=== PATIENT | male | born 1960 ===

== ENCOUNTER 2019-06-01 09:29 | Outpatient (REF) | payer BC, SELFPAY ==
[2019-06-01 19:03] LABS: ALT 32 U/L (12-78); Anion Gap 8.5 mmol/L (3-11); BUN 16 mg/dL (7-18); CO2 28.5 mmol/L (21.0-32.0); CREATININE 0.94 mg/dL (0.70-1.30); Calculated LDL 102 mg/dL; Chloride 103 mmol/L (98-107); Cholesterol 160 mg/dL (50-200); Glucose 99 mg/dL (70-100); HDL Cholesterol 51 mg/dL (40-60); Potassium 4.6 mmol/L (3.5-5.1); Sodium 140 mmol/L (136-145); Triglyceride 37 mg/dL (30-150)
[2019-06-01 19:16] LABS: Creatine Kinase 157 U/L (39-308)
== END 2019-06-01 09:49 ==
LOC: NCHCN 09:29
PROVIDERS: PCP Internal Medicine; Visit Provider Internal Medicine
DX: Z00.00 Encounter for general adult medical examination without abnormal findings (principal); Z13.228 Encounter for screening for other metabolic disorders; Z13.220 Encounter for screening for lipoid disorders
CPT/HCPCS: 80048; 80061; 82550; 83721; 84460

== ENCOUNTER 2020-09-06 09:19 | Outpatient (REF) | payer BC, SELFPAY ==
[2020-09-06 21:59] LABS: ALT 22 U/L (16-63); AST 12 U/L (15-37); Anion Gap 7.6 mmol/L (3-11); BUN 17 mg/dL (7-18); CO2 27.4 mmol/L (21.0-32.0); CREATININE 1.08 mg/dL (0.70-1.30); Calcium 9.2 mg/dL (8.5-10.1); Calculated LDL 107 mg/dL (<100); Chloride 101 mmol/L (98-107); Cholesterol 168 mg/dL (<200); Glucose 110 mg/dL (74-106); HDL Cholesterol 49 mg/dL (40-60); Potassium 4.3 mmol/L (3.5-5.1); Sodium 136 mmol/L (136-145); Triglyceride 61 mg/dL (<150)
[2020-09-06 22:56] LABS: Creatine Kinase 77 U/L (39-308)
[2020-09-07 18:53] LABS: PSA, Screening 1.1 ng/mL (0.0-4.5)
== END 2020-09-06 09:39 ==
LOC: NCHCN 09:19
PROVIDERS: PCP Internal Medicine; Visit Provider Internal Medicine
DX: E78.5 Hyperlipidemia, unspecified (principal); Z00.00 Encounter for general adult medical examination without abnormal findings; I10 Essential (primary) hypertension; N40.0 Benign prostatic hyperplasia without lower urinary tract symptoms
CPT/HCPCS: 80048; 80061; 82550; 84153; 84450; 84460

== ENCOUNTER 2020-09-13 09:56 | Outpatient (REF) | payer BC, SELFPAY ==
[2020-09-13 21:27] LABS: Hemoglobin A1C 5.2 % (<5.7)
== END 2020-09-13 10:16 ==
LOC: NCHCN 09:56
PROVIDERS: PCP Internal Medicine; Visit Provider Internal Medicine
DX: R73.9 Hyperglycemia, unspecified (principal)
CPT/HCPCS: 83036

== ENCOUNTER 2021-10-29 17:24 | Outpatient (REF) | payer OTHER, SELFPAY ==
[2021-10-29 21:08] LABS: Anion Gap 9.4 mmol/L (3-11); BUN 14 mg/dL (7-18); CO2 27.6 mmol/L (21.0-32.0); CREATININE 0.9 mg/dL (0.70-1.30); Calcium 9.7 mg/dL (8.5-10.1); Chloride 100 mmol/L (98-107); Glucose 78 mg/dL (74-106); LDL CHOLESTEROL 137 mg/dL (<100); Potassium 4.5 mmol/L (3.5-5.1); Sodium 137 mmol/L (136-145)
== END 2021-10-29 17:25 | disposition home or self-care (01) ==
LOC: NCHCN 17:24
PROVIDERS: PCP Internal Medicine; Visit Provider Internal Medicine
DX: I10 Essential (primary) hypertension (principal); E78.5 Hyperlipidemia, unspecified
CPT/HCPCS: 80048; 83721

== ENCOUNTER 2022-01-08 17:11 | Outpatient (REF) | payer OTHER, SELFPAY ==
[2022-01-08 18:26] LABS: HCT 45.2 % (40.0-50.0); HGB 14.7 g/dL (13.5-17.5); MCH 31.3 pg (27.0-33.0); MCHC 32.5 % (32.0-36.0); MCV 96.2 fL (80-95); MPV 10.7 fL (8.0-11.0); Platelet Count 231 10^3/uL (130-400); RDW-SD 43.1 fL; WBC 11.15 10^3/uL (4.4-10.8)
== END 2022-01-08 17:12 | disposition home or self-care (01) ==
LOC: NCHCN 17:11
PROVIDERS: PCP Internal Medicine; Visit Provider Internal Medicine
DX: I10 Essential (primary) hypertension (principal)
CPT/HCPCS: 85027

== ENCOUNTER 2023-04-09 17:27 | Outpatient (REF) | payer OTHER, SELFPAY ==
[2023-04-09 20:07] LABS: Anion Gap 6.7 mmol/L (3-11); BUN 28 mg/dL (7-18); CO2 27.3 mmol/L (21.0-32.0); Calcium 9.4 mg/dL (8.5-10.1); Calculated LDL 149 mg/dL (<100); Chloride 100 mmol/L (98-107); Cholesterol 220 mg/dL (<200); Estimated GFR 84.57 (mL/min/1.73m2); Glucose 91 mg/dL (74-106); HDL Cholesterol 56 mg/dL (40-60); Potassium 3.9 mmol/L (3.5-5.1); Sodium 134 mmol/L (136-145); Triglyceride 76 mg/dL (<150)
== END 2023-04-09 17:28 | disposition home or self-care (01) ==
LOC: NCHCN 17:27
PROVIDERS: PCP Internal Medicine; Visit Provider Internal Medicine
DX: Z00.00 Encounter for general adult medical examination without abnormal findings (principal); E78.5 Hyperlipidemia, unspecified; I10 Essential (primary) hypertension
CPT/HCPCS: 80048; 80061

== ENCOUNTER 2024-05-04 16:09 | Outpatient (REF) | payer SELFPAY ==
--- OUTSIDE RECORDS SUMMARY | 2024-05-04 16:11 | XMS_ITS | Continuity of Care Document ---
Author Name Unknown Organization [facility] Address [address] [place] [address] Care Team Providers Care Business Machines Teacher Name Role Phone Wilfrid Perrin Primary Care Physician Encounter [facility] Date(s): 11/07/22 - 11/07/[address] [phone] Discharge Disposition: Home or Self Care Attending Physician: Basil Fuentes MD Admitting Physician: Basil Fuentes MD Referring Physician: Basil Fuentes MD Allergies, Adverse Reactions, Alerts No Known Medication Allergies Assessment and Plan Diagnostic Tests Pending * SARS (COVID-19) Testing [facility] 11/07/22 Problem List Condition Confirmation Course Effective Dates Status H ealth Status Informant Benign prostatic hyperplasia Confirmed 01/26/20 Active Hyperlipidemia Confirmed 01/26/20 Active Hypertensive disorder Confirmed 01/26/20 Active Joint pain Confirmed 01/26/20 Active Osteoarthritis of knee Confirmed 01/26/20 Active Periumbilical pain Confirmed 01/26/20 Active Prediabetes Confirmed 01/26/20 Active Rupture of tendon of biceps Confirmed 01/26/20 Active Spontaneous rupture of extensor tendons Confirmed Active Venous insufficiency of leg Confirmed 01/26/20 Active Procedures Procedure Date Related Diagnosis Body Site Status Colonoscopy 1 02/14/21 Completed 1diverticulosis, colon polyps, internal hemorrhoids. 2009 Social History Social History Type Response Sex Male Patient Care team information Personnel Name: Wilfrid Perrin MD Address: Address: [address] [address]- [place]
--- OUTSIDE RECORDS SUMMARY | 2024-05-04 16:11 | XMS_ITS | Continuity of Care Document ---
Author Name Unknown Organization [facility] Address [address] [place] [address] Care Team Providers Care Manager Stone Name Role Phone Cisco CLARKWilfrid Primary Care Physician Encounter [facility] Date(s): 08/18/23 - 08/18/[address] [phone] Discharge Disposition: Home or Self Care Attending Physician: Martell Camargo PA-C Admitting Physician: Martell Camargo PA-C Referring Physician: Martell Camargo PA-C Allergies, Adverse Reactions, Alerts No Known Medication Allergies Problem List Condition Confirmation Course Effective Dates [...] Completed 1diverticulosis, colon polyps, internal hemorrhoids. 2009 Results Laboratory List Name Date Creatinine 08/18/23 Most recent to oldest [Reference Range]: 1 eGFR Non-AA [>=60] 84 (08/18/23 4:20 PM) eGFR AA [>=60] 84 (08/18/23 4:20 PM) Creatinine Level [0.70-1.30 mg/dL] 1.01 mg/dL (08/18/23 4:20 PM) Social History Social History Type Response Sex Male Patient Care team information Care Team Personnel Name: Wilfrid Perrin MD Position: Physician Member Role: Informed Provider Address: Address: [address] [place] [phone] Care Team Related Persons Name: ADRIAN TAVARES
[2024-05-04 19:58] LABS: Anion Gap 4.9 mmol/L (3-11); BUN 14 mg/dL (7-18); CO2 30.1 mmol/L (21.0-32.0); Calcium 9.7 mg/dL (8.5-10.1); Chloride 104 mmol/L (98-107); Creatine Kinase 120 U/L (39-308); Estimated GFR 84.05 (mL/min/1.73m2); Glucose 110 mg/dL (74-106); Potassium 4.6 mmol/L (3.5-5.1); Sodium 139 mmol/L (136-145)
[2024-05-04 20:22] LABS: Calculated LDL 86 mg/dL (<100); Cholesterol 152 mg/dL (<200); HDL Cholesterol 58 mg/dL (40-60); Triglyceride 41 mg/dL (<150)
== END 2024-05-04 16:10 | disposition home or self-care (01) ==
LOC: NCHCN 16:09
PROVIDERS: PCP Internal Medicine; Visit Provider Internal Medicine
DX: E78.5 Hyperlipidemia, unspecified (principal); I10 Essential (primary) hypertension
CPT/HCPCS: 80048; 80061; 82550

== ENCOUNTER 2024-08-16 18:18 | Outpatient (REF) | payer OTHER, SELFPAY ==
--- OUTSIDE RECORDS SUMMARY | 2024-08-16 18:21 | XMS_ITS | Encounter Summary ---
Author Organization [facility] Address [address] [place] [address] Care Team Providers Care Senior Mechanical Estimator Name Role Phone Unknown, Provider Primary Care Provider [phone] Encounter Details Date Type Department Care Team (Late st Contact Info) Description 02/01/2022 Lab Requisition [facility] Pathology & Laboratory Medicine - [facility] [address] [place] [address] Basil Fuentes MD [address] [place] [phone] Disorder of the skin and subcutaneous tissue, unspecified Social History Tobacco Use Types Packs/Day Years Used Date Smoking Tobacco: Never Assessed Sex and Gender Information Value Date Recorded Sex Assigned at Not on file Gender Identity Not on file Sexual Orientation Not on file documented as of this encounter Plan of Treatment Not on file documented as of this encounter Procedures Procedure Name Priority Date/Time Associated Diagnosis Comments SURGICAL PATHOLOGY Today 02/01/2022 16 :55 EDT documented in this encounter Results * SURGICAL PATHOLOGY (02/01/2022 16:55 EDT) Note to Patient The following pathology results have been interpreted by your pathologist and may be available to you before your health provider has had the opportunity to review them. Please allow time for your provider to receive these results and explore management options, if applicable. 02/06/2022 18:[address] [facility] Final Diagnosis A. SKIN OF SCALP, EXCISION: - Actinic keratosis, ulcerated and inflamed. See comment. 02/06/2022 18:[address] [facility] Diagnosis Comment Within the excision specimen is dermal scar formation. The epidermis is largely eroded and ulcerated suggestive of excoriation. However, also present are features of actinic keratosis. Deeper levels have been examined on blocks A1 and A2. 02/06/2022 18:10 [facility] Attestation By the signature below, the attending physician certifies that they have 1) personally conducted a gross and/or microscopic examination of the described specimen(s), and/or personally interpreted the results of laboratory testing of the described specimen(s), and 2) personally rendered or confirmed the above diagnosis. 02/06/2022 18:10 [facility] at 1810 Clinical History Scalp skin lesion; clinical diagnosis code: L98.9 02/06/2022 18:10 [facility] Gross Description A. Received in formalin labelled with proper patient identification (initials S, M) and not otherwise specified is a 0.9 x 0.4 x 0.2 cm unoriented, elliptical excision of hair-bearing valente skin. The margin is inked. The specimen is serially sectioned and entirely submitted in A1 (tips, reverse en face) and A2 (2 central sections). SAE URIAS(ASCP) 02/04/2022 12:00 02/06/2022 18:10 [facility] Performing Lab [facility] 02/06/2022 18:10 [facility] Scanned Images 02/06/2022 18:10 [facility] Tissue TISSUE SPECIMEN FROM SKIN / Unknown 02/01/2022 16:55 EDT 02/01/2022 22:12 EDT Basil Fuentes MD PATHOLOGY TAMIKO VALLEJO [facility] [address] [place] [address] documented in this encounter Visit Diagnoses Diagnosis Disorder of the skin and subcutaneous tissue, unspecified documented in this encounter Care Teams Senior Mechanical Estimator Relationship Specialty Start Date End Date Unknown, Provider, PCP - General 02/15/21 documented as of this encounter
--- OUTSIDE RECORDS SUMMARY | 2024-08-16 18:21 | XMS_ITS | Clinical Summary ---
Author Organization [facility] Address [address] [place] [address] Care Team Providers Care Well Services Operator Name Role Phone Unknown, Provider Primary Care Provider Social History Tobacco Use Types Packs/Day Years Used Date Smoking Tobacco: Never Assessed Sex and Gender Information Value Date Recorded Sex Assigned at Not on file Gender Identity Not on file Sexual Orientation Not on file Plan of Treatment Health Maintenance Due Date Last Done Comments Hepatitis C Screen 1960 RSV Immunization ( o r 60+ Years) (1 - 1-dose 60+ series) 2019 COVID-19 Vaccine (2022-24 season) 2023 Care Teams Well Services Operator Relationship Specialty Start Date End Date Unknown, Provider, PCP - General 02/15/21
--- OUTSIDE RECORDS SUMMARY | 2024-08-16 18:21 | XMS_ITS | Referral Summary ---
Author Organization [facility] Address [address] [place] [address] Care Team Providers Care Hotbed Operator Name Role Phone Unknown, Provider Primary Care Provider Social History Tobacco Use Types Packs/Day Years Used Date Smoking Tobacco: Never Assessed Sex and Gender Information Value Date Recorded Sex Assigned at Not on file Gender Identity Not on file Sexual Orientation Not on file Plan of Treatment Not on file Care Teams Hotbed Operator Relationship Specialty Start Date End Date Unknown, Provider, PCP - General 02/15/21
--- OUTSIDE RECORDS SUMMARY | 2024-08-16 18:21 | XMS_ITS | Encounter Summary ---
Author Organization [facility] Address [address] [place] [address] Care Team Providers Care Release Of Information Specialist Name Role Phone Unknown, Provider Primary Care Provider Encounter Details Date Type Department Care Team (Late st Contact Info) Description 09/07/2020 Lab Requisition [facility] Pathology & Laboratory Medicine - [facility] [address] [place], [place] [id number] Outr Resulting Lab, Provider Social History Tobacco Use Types Packs/Day Years Used Date Smoking Tobacco: Never Assessed Sex and Gender Information Value Date Recorded Sex Assigned at Not on file Gender Identity Not on file Sexual Orientation Not on file documented as of this encounter Plan of Treatment Not on file documented as of this encounter Procedures Procedure Name Priority Date/Time Associated Diagnosis Comments PSA TOTAL, DIAGNOSTIC Routine 09/06/2020 8:40 EDT documented in this encounter Results * PSA TOTAL, DIAGNOSTIC (09/06/2020 8:40 EDT) PSA 1.1 0.0 - 4.5 ng/mL 09/07/2020 18:48 EDT [facility] Blood VENOUS BLOOD / Unknown 09/06/2020 8:40 EDT 09/07/2020 17:21 EDT Narrative [facility] - 09/07/2020 18:48 EDT NOTE: Serum PSA concentration should not be interpreted as absolute evidence for the presence or absence of malignant disease. Assayed on Siemens ADVIA Centaur XPT using chemiluminescent technology.??Values obtained by using different assay methods cannot be used interchangeably. Provider Outr Resulting Lab CHEMISTRY & BLOOD GAS ORDERABLES [facility] [address] [place] [address] documented in this encounter Visit Diagnoses Not on filedocumented in this encounter Care Teams Release Of Information Specialist Relationship Specialty Start Date End Date Unknown, Provider, PCP - General 02/15/21 documented as of this encounter
--- OUTSIDE RECORDS SUMMARY | 2024-08-16 18:21 | XMS_ITS | Encounter Summary ---
Author Organization [facility] Address [address] [place] [address] Care Team Providers Care Automation Design Engineer Name Role Phone Unknown, Provider Primary Care Provider Encounter Details Date Type Department Care Team (Late st Contact Info) Description 11/07/2022 Lab Requisition [facility] Pathology & Laboratory Medicine - [facility] [address] [place] [address] Outr Resulting Lab, Provider Social History Tobacco [...] Procedure Name Priority Date/Time Associated Diagnosis Comments ZZCOVID-19 TEST [facility] PCR Today 11/07/2022 10:17 EST COVID-19 TESTING Routine 11/07/2022 10:1 7 EST documented in this encounter Results * COVID-19 TEST [facility] PCR (11/07/2022 10:17 EST) Swab 11/07/2022 10:1 7 EST 11/07/2022 21:19 EST Provider Outr Resulting Lab MICROBIOLOGY - GENERAL ORDERABLES [facility] [address] [place] [address] * COVID-19 TESTING (11/07/2022 10:17 EST) COVID-19 rt-PCR Result Negative Negative 11/08/2022 11:12 EST [facility] Comment: This test has not been FDA cleared or approved. This test has been authorized by FDA under an EUA for use by authorized laboratories. This test has been authorized only for detection of nucleic acid from 2019-nCoV, not for any other viruses or pathogens. This test is only authorized for the duration of the declaration that circumstances exist justifying the authorization of emergency use of in vitro diagnostic tests for detection and/or diagnosis of 2019-nCoV under section 564(b)(1) of Act, 21 U.S.C ?? 360bbb-3(b) (1), unless the authorization is terminated or revoked sooner. Negative results do not preclude 2019-nCoV infection and should not be used as the sole basis for treatment or other patient management decisions. Negative results must be combined with clinical observations, patient history, and epidemiological information. Testing was performed using the tammy SARS-CoV-2 assay ([employer] on the Tammy 6800 System Performing Lab Tammy 6800 [facility] 11/08/2022 11:12 EST [facility] Swab 11/07/2022 10:1 7 EST 11/07/2022 21:19 EST Provider Outr Resulting Lab MICROBIOLOGY - GENERAL ORDERABLES [facility] [address] [place] [address] documented in this encounter Visit Diagnoses Not on filedocumented in this encounter Care Teams Automation Design Engineer Relationship Specialty Start Date End Date Unknown, Provider, PCP - General 02/15/21 documented as of this encounter
--- OUTSIDE RECORDS SUMMARY | 2024-08-16 18:21 | XMS_ITS | Encounter Summary ---
Author Organization [facility] Address [address] [place] [address] Care Team Providers Care Video Game Script Writer Name Role Phone Unknown, Provider Primary Care Provider Encounter Details Date Type Department Care Team (Late st Contact Info) Description 02/15/2021 Lab Requisition [facility] Pathology & Laboratory Medicine - [facility] [address] [place] [address] Basil Fuentes MD [address] [place] [phone] Encounter for other general examination Social History Tobacco Use Types Packs/Day Years Used Date Smoking Tobacco: Never Assessed Sex and Gender Information Value Date Recorded Sex Assigned at Not on file Gender Identity Not on file Sexual Orientation Not on file documented as of this encounter Plan of Treatment Not on file documented as of this encounter Procedures Procedure Name Priority Date/Time Associated Diagnosis Comments SURGICAL PATHOLOGY Today 02/15/2021 11 :15 EDT documented in this encounter Results * SURGICAL PATHOLOGY (02/15/2021 11:15 EDT) Final Diagnosis A. COLON, TRANSVERSE, POLYP, BIOPSY: - Tubular adenoma. B. COLON, TRANSVERSE, POLYP #2, BIOPSY: - Sessile serrated adenoma. C. COLON, SIGMOID, POLYP, BIOPSY: - Tubular adenoma. D. COLON, SIGMOID, POLYP #2, BIOPSY: - Cauterized colonic mucosa with hyperplastic surface change. - Negative for dysplasia. 02/19/2021 16:46 EDT [facility] Attestation By the signature below, the attending physician certifies that they have 1) personally conducted a gross and/or microscopic examination of the described specimen(s), and/or personally interpreted the results of laboratory testing of the described specimen(s), and 2) personally rendered or confirmed the above diagnosis. 02/19/2021 16:46 [facility] at 1646 Clinical History Screening; diverticulosis, colon polyp 02/19/2021 16:46 [facility] Gross Description A. Received in formalin labelled with proper patient identification (initials S, M) and transverse colon polyp is a valente tissue (0.5 x 0.3 x 0.2 cm). Submitted intact in A1. B. Received in formalin labelled with proper patient identification (initials S, M) and transverse colon polyp # 2 is a pale-valente to pink-red polyp (0.8 x 0.6 x 0.4 cm). Bisected and submitted in B1. C. Received in formalin labelled with proper patient identification (initials S, M) and sigmoid colon polyp is a valente-pink focally red speckled polyp (0.6 x 0.3 x 0.3 cm). Submitted intact in C1. D. Received in formalin labelled with proper patient identification (initials S, M) and sigmoid colon polyp x2 are two white brown tissues (0.5 x 0.2 x 0.2 cm and 0.2 x 0.2 x 0.1 cm). Entirely submitted in D1. Graham Yuen 02/16/2021 8:55 02/19/2021 16:46 [facility] Performing Lab [facility] 02/19/2021 16:46 [facility] Scanned Images 02/19/2021 16:46 [facility] Tissue ENTIRE SIGMOID COLON / Unknown 02/15/2021 11:15 EDT 02/16/2021 7:31 EDT Tissue specimen (specimen) TRANSVERSE COLON STRUCTURE / Unknown 02/15/2021 11:15 EDT 02/16/2021 7:31 EDT Tissue specimen (specimen) SIGMOID COLON STRUCTURE / Unknown 02/15/2021 11:15 EDT 02/16/2021 7:31 EDT Tissue specimen (specimen) SIGMOID COLON STRUCTURE / Unknown 02/15/2021 11:15 EDT 02/16/2021 7:31 EDT Basil Fuentes MD PATHOLOGY TAMIKO VALLEJO [facility] [address] [place] [address] documented in this encounter Visit Diagnoses Diagnosis Encounter for other general examination documented in this encounter Care Teams Video Game Script Writer Relationship Specialty Start Date End Date Unknown, Provider, PCP - General 02/15/21 documented as of this encounter
--- OUTSIDE RECORDS SUMMARY | 2024-08-16 18:21 | XMS_ITS | Encounter Summary ---
Author Organization [facility] Address [address] [place] [address] Care Team Providers Care Early Childhood Specialist Name Role Phone Unknown, Provider Primary Care Provider Encounter Details Date Type Department Care Team (Late st Contact Info) Description 02/08/2021 Lab Requisition [facility] Pathology & Laboratory Medicine - [address] [address] Outr Resulting Lab, Provider Social History Tobacco [...] Priority Date/Time Associated Diagnosis Comments ZZCOVID-19 TEST [facility] PCR Today 02/08/2021 8:33 EDT COVID-19 TESTING Routine 02/08/2021 8:33 EDT documented in this encounter Results * COVID-19 TEST [facility] PCR (02/08/2021 8:33 EDT) Swab ENTIRE NASOPHARYNX / Unknown 02/08/2021 8:33 EDT 02/08/2021 16:52 EDT Provider Outr Resulting Lab MICROBIOLOGY - GENERAL ORDERABLES [facility] [address] [place] [address] * COVID-19 TESTING (02/08/2021 8:33 EDT) COVID-19 rt-PCR Result Negative Negative 02/09/2021 12:31 EDT [facility] Comment: This test [...] clinical observations, patient history, and epidemiological information. This test was developed and its performance characteristics determined by [facility]. It has not been cleared or approved by the [place] Food and Drug Administration. FDA does not require this test to go through premarket FDA review. This test is used for clinical purposes. It should not be regarded as investigational or for research. This laboratory is certified under the Clinical Laboratory Improvement Amendments (CLIA) as qualified to perform high complexity clinical laboratory testing. This test is based on the CDC COVID-19 Emergency Use Authorization (EUA) assay, with minor modification as defined by the FDA Performed on the [employer] 7 Pro RT-PCR System. Performing Lab [facility] 02/09/2021 12:31 EDT [facility] Swab 02/08/2021 8:33 EDT 02/08/2021 16:52 EDT Provider Outr Resulting Lab MICROBIOLOGY - GENERAL ORDERABLES [facility] [address] [place] [address] documented in this encounter Visit Diagnoses Not on filedocumented in this encounter Care Teams Early Childhood Specialist Relationship Specialty Start Date End Date Unknown, Provider, PCP - General 02/15/21 documented as of this encounter
--- OUTSIDE RECORDS SUMMARY | 2024-08-16 18:22 | XMS_ITS | Encounter Summary ---
Author Organization [facility] [place] [address] Care Team Providers Care Dipper And Baker Name Role Phone Wilfrid Peck MD Primary Care Provider Reason for Referral * Diagnostic Test (Routine) - Closed Specialty Diagnoses / Procedures Referred By Contac t Referred To Contact Radiology Diagnoses Squamous cell carcinoma of tongue Procedures CT Chest w Contrast PRG CT SCAN THORAX CONTRAST Elo Mcclellan APRN [facility] [place] [address] [facility] [place] [address] Referral ID Status Reason Start Date Expiration Date V isits Requested Visits Authorized [id number] Closed Specialty Service Requested 08/29/2022 02/28/2024 1 1 * Diagnostic Test (Routine) - Closed Specialty Diagnoses / Procedures Referred By Contac t Referred To Contact Radiology Diagnoses Squamous cell carcinoma of tongue Procedures CT Neck Soft Tissue w Contrast (Generic) PRG CT SCAN SOFT TISSUE NECK CONTRAST Elo Mcclellan APRN [facility] [place] [address] [facility] [place] [address] Referral ID Status Reason Start Date Expiration Date V isits Requested Visits Authorized [id number] Closed Specialty Service Requested 08/29/2022 02/28/2024 1 1 Reason for Visit * Diagnostic Test (Routine) - Closed Specialty Diagnoses / Procedures Referred By Genevieve t Referred To Contact Radiology Diagnoses Squamous cell carcinoma of tongue Procedures CT Neck Soft Tissue w Contrast (Generic) PRG CT SCAN SOFT TISSUE NECK CONTRAST Elo Mcclellan APRN [facility] DR MAGDALENOOLARY[place] [address] [facility] [place] [address] Referral ID Status Reason Start Date Expiration Date V isits Requested Visits Authorized [id number] Closed Specialty Service Requested 08/29/2022 02/28/2024 1 1 Encounter Details Date Type Department Care Team (Latest Contact Info) Description 10/24/2022 7:59 AM EST - 10/24/2022 11:59 PM EST Hospital [place] [address] Elo Mcclellan APRN [facility] DR [place] [address] Squamous cell carcinoma of tongue Discharge Disposition: Home Social History Tobacco Use Types Packs/Day Years Used Date Smoking Tobacco: Never Smokeless Tobacco: Never Alcohol Use Standard Drinks/Week Comments Yes 7 (1 standard drink = 0.6 oz pur e alcohol) Overall Financial Resource Strain (CARDIA) Answe r Date Recorded How hard is it for you to pa y for the very basics like food, housing, medical care, and heating? Not very hard 05/29/2022 Hunger Vital Sign Answer Date Recorded Within the past 12 months, y ou worried that your food would run out before you got the money to buy more. Never true 05/29/20 22 Ran Out of Food in the Last Year Not on file 05/29/2022 PRAPARE - Transportation Answer Date Re corded In the past 12 months, has l ack of transportation kept you from medical appointments or from getting medications? No 05/17 In the past 12 months, has l ack of transportation kept you from meetings, work, or from getting things needed for daily living? No 05/29/2022 Housing Stability Vital Sign Answer Tito e Recorded In the last 12 months, was t here a time when you were not able to pay the mortgage or rent on time? No 05/29/2022 In the last 12 months, how many places have you lived? 1 05/29/2022 In the last 12 months, was t here a time when you did not have a steady place to sleep or slept in a usp (including now)? No 05/29/2022 Sex and Gender Information Value Date Recorded Sex Assigned at Not on file Gender Identity Not on file Sexual Orientation Not on file documented as of this encounter Medications at Time of Discharge Medication Sig Dispensed Refills Start Date End Date ascorbic acid (VITAMIN C ORAL) Take by mouth daily. ergocalciferol, vitamin D2, (VITAMIN D ORAL) Take by mouth daily. KRILL OIL ORAL Take by mouth daily. acetaminophen (Tylenol) 325 mg Tablet Take 3 tablets by mouth every 6 hours. 30 tablet 1 07/24/2022 ibuprofen (Advil) 600 mg Tablet Take 1 tablet by mouth every 6 hours. 30 tablet 12 07/24/2022 lisinopriL (Zestril) 10 mg Tablet Take 1 tablet by mouth daily. 90 tablet 3 07/25/2022 chlorhexidine (Peridex) 0.12 % Mouthwash Take 15 mLs by mouth 3 times daily. 120 mL 07/24/2022 documented as of this encounter Plan of Treatment Not on file documented as of this encounter Procedures Procedure Name Priority Date/Time Associated Diagnosis Comments CT CHEST W CONTRAST Routine 10/24/2022 8 :40 AM EST Squamous cell carcinoma of tongue CT NECK SOFT TISSUE W CONTRAST Routine 10/24/2022 8:40 AM EST Squamous cell carcinoma of tongue documented in this encounter Results * CT Chest w Contrast (10/24/2022 8:40 AM EST) Anatomical Region Laterality Modality Chest Computed Tomogra phy Impressions 10/24/2022 11:16 AM EST 1. ??No pulmonary metastases. No lymphadenopathy. 2. ??See separately dictated CT neck for dedicated neck findings. 3. ??Approximately 6 cm hypodense lesion in the right liver lobe with peripheral lacunar enhancement is consistent with a benign hemangioma. This was also already present at the time of prior PET/CT 05/16/2022. Lack of any abnormal FDG uptake at that time also makes a malignant etiology much less likely. I have personally reviewed the image(s) and the resident's interpretation and agree with the findings, Sarai Weeks MD at 10/24/2022 11:16 AM Thank you for letting us participate in the care of this patient. ??If you are a health care provider and have any questions regarding this report, please contact the number below. ??For patients who have questions please contact the health careers counsellor that requested your imaging first. ? Electronically signed by: Sarai Weeks MD, [facility] ([phone]), at 10/24/2022 11:16 AM Narrative 10/24/2022 11:16 AM EST EXAMINATION: CT CHEST W CONTRAST CLINICAL HISTORY: Head/neck cancer, staging Known squamous cell carcinoma of the tongue HPV+ T1N1 TECHNIQUE: Helical CT of the chest with intravenous contrast administration. 110 cc Omnipaque 350. Thin-section reconstructions as well as coronal and sagittal reformatted images were generated. COMPARISON: PET CT 05/16/2022 FINDINGS: Pulmonary parenchyma: Mild dependent atelectasis. Stable sub-6 mm anterior right middle lobe subpleural ovoid soft tissue nodule, likely intrapulmonary lymph node (series 4 image 290). Airways: Central airways are patent. Pleura: No pleural effusions. No pneumothorax. Lymph nodes: No mediastinal or axillary lymphadenopathy. Heart and vasculature: Normal cardiac size. Mild coronary artery calcifications. Mild aortic atherosclerosis. Normal course and caliber of the aorta. Patent branch vessel origins. No pericardial effusion. Other mediastinal structures: Mediastinal fat is preserved. Normal CT appearance of the esophagus. Lower neck: See separately dictated CT neck for dedicated neck findings. Body wall soft tissues: No significant findings. Upper abdomen: 6.1 x 6.0 x 4.7 cm right hepatic lobe peripheral segment 5/6 irregular lesion which is predominantly mildly hypodense to normal liver parenchyma, with multiple enhancing peripheral nodular foci. There is a central focus of fluid density, (series 3 image 111). On review of prior PET/CT this correlates with a heterogeneous hypodense focus. Of note the FDG avidity was relatively similar to adjacent liver parenchyma. Skeletal structures: No acute osseous findings. No suspicious lytic or blastic osseous lesions. 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 110 cc Omnipaque 350. Thin-section reconstructions as well as coronal andsagittal reformatted images were generated. COMPARISON: PET CT 05/16/2022 FINDINGS: Pulmonary parenchyma: Mild dependent atelectasis. Stable sub-6 mm anterior right middle lobe subpleural ovoid soft tissuenodule, likely intrapulmonary lymph node (series 4 image 290). Airways: Central airways are patent. Pleura: No pleural effusions. No pneumothorax. Lymph nodes: No mediastinal or axillary lymphadenopathy. Heart and vasculature: Normal cardiac size. Mild coronary arterycalcifications. Mild aortic atherosclerosis. Normal course and caliber of the aorta.Patent branch vessel origins. No pericardial effusion. Other mediastinal structures: Mediastinal fat is preserved. Normal CTappearance of the esophagus. Lower neck: See separately dictated CT neck for dedicated neck findings. Body wall soft tissues: No significant findings. Upper abdomen: 6.1 x 6.0 x 4.7 cm right hepatic lobe peripheral segment5/6 irregular lesion which is predominantly mildly hypodense to normal liver parenchyma, with multiple enhancing peripheral nodular foci. There is acentral focus of fluid density, (series 3 image 111). On review of prior PET/CT this correlates with a heterogeneous hypodensefocus. Of note the FDG avidity was relatively similar to adjacent liverparenchyma. Skeletal structures: No acute osseous findings. No suspicious lytic orblastic osseous lesions. IMPRESSION 1. No pulmonary metastases. No lymphadenopathy. 2. See separately dictated CT neck for dedicated neck findings. 3. Approximately 6 cm hypodense lesion in the right liver lobe withperipheral lacunar enhancement is consistent with a benign hemangioma. This wasalso already present at the time of prior PET/CT 05/16/2022. Lack of anyabnormal FDG uptake at that time also makes a malignant etiology much less likely. I have personally reviewed the image(s) and the resident's interpretationand agree with the findings, Sarai Weeks MD at 10/24/2022 11:16AM Thank you for letting us participate in the care of this patient. If youare a health care provider and have any questions regarding this report,please contact the number below. For patients who have questions please contactthe health careers counsellor that requested your imaging first. Elo Mcclellan APRN IM CT ORDERABLES * CT Neck Soft Tissue w Contrast (Generic) (10/24/2022 8:40 AM EST) Anatomical Region Laterality Modality Neck, Head Computed Tomogra phy Impressions 10/24/2022 10:47 AM EST 1. ??No evidence of local tumor recurrence. 2. ??No cervical lymphadenopathy. 3. ??No evidence of regional distant metastases. 4. ??Incidental 8 mm left thyroid nodule which does not require further workup per ACR criteria. The majority of incidental thyroid nodules (ITNs) are benign. To avoid unnecessary evaluation the [employer] recommends the following for ITNs discovered on CTor MRI: In patients less than 35 years of age with normal life expectancy, any ITN without suspicious features, 1cm or larger should undergo dedicated thyroid sonography. In patients greater than 35 years of age with normal life expectancy, any ITN without suspicious features, 1.5 cm or larger should undergo dedicated thyroid sonography. Reference: Jerry SIBLEY, et al. Managing Incidental Thyroid Nodules Detected on Imaging: White Paper of the ACR Incidental Thyroid Findings Committee. J Am Marc Radiol 2015;12:143-150. Thank you for letting us participate in the care of this patient. ??If you are a health care provider and have any questions regarding this report, please contact the number below. ??For patients who have questions please contact the health careers counsellor that requested your imaging first. ? 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 110 cc of Omnipaque 350 were injected intravenously for contrast. COMPARISON: CT neck 02/28/2022 and PET/CT scan 05/16/2020 FINDINGS: There is tissue volume loss at the right tongue base related to prior resection. No mass or abnormal enhancement to suggest recurrent tumor. Incidental 8 mm left thyroid lobe hypodense nodule. No additional mass lesion throughout the neck. Surgical clips are seen in the right neck from prior right neck dissection. No cervical lymphadenopathy bilaterally throughout the neck. The visualized portions of the lungs show no pulmonary nodules. The visualized portions of the brain show no abnormal enhancement. No focal osseous lesions to suggest metastatic disease. Procedure Note Carly Joseph MD - 10/24/2022 EXAMINATION: CT NECK SOFT TISSUE W CONTRAST (GENERIC) CLINICAL HISTORY: Head/neck cancer, staging Right base of tongue cancer pT1N1 HPV+ squamous cell carcinoma rightlateral tongue s/p excision performed on 08/08/2022 TECHNIQUE: CT neck performed after the intravenous administration of contrast. 110 ccof Omnipaque 350 were injected intravenously for contrast. COMPARISON: CT neck 02/28/2022 and PET/CT scan 05/16/2020 FINDINGS: There is tissue volume loss at the right tongue base related to priorresection. No mass or abnormal enhancement to suggest recurrent tumor. Incidental 8 mm left thyroid lobe hypodense nodule. No additional masslesion throughout the neck. Surgical clips are seen in the right neck from prior right neckdissection. No cervical lymphadenopathy bilaterally throughout the neck. The visualized portions of the lungs show no pulmonary nodules. Thevisualized portions of the brain show no abnormal enhancement. No focal osseouslesions to suggest metastatic disease. IMPRESSION 1. No evidence of local tumor recurrence. 2. No cervical lymphadenopathy. 3. No evidence of regional distant metastases. 4. Incidental 8 mm left thyroid nodule which does not require furtherworkup per ACR criteria. The majority of incidental thyroid nodules (ITNs) are benign. To avoid unnecessary evaluation the [employer]recommends the following for ITNs discovered on CTor MRI: In patients less than 35 years of age with normal life expectancy, anyITN without suspicious features, 1cm or larger should undergo dedicatedthyroid sonography. In patients greater than 35 years of age with normal life expectancy, anyITN without suspicious features, 1.5 cm or larger should undergo dedicatedthyroid sonography. Reference: Jerry MonkK, et al. Managing Incidental Thyroid Nodules Detected on Imaging:White Paper of the ACR Incidental Thyroid Findings Committee. J Am Marc Radiol 2015;12:143-150. Thank you for letting us participate in the care of this patient. If youare a health care provider and have any questions regarding this report,please contact the number below. For patients who have questions please contactthe health careers counsellor that requested your imaging first. Electronically signed by: Carly Joseph MD, [facility]([phone]), at 10/24/2022 10:47 AM Elo Mcclellan APRN IMRenzo CT ORDERABLES documented in this encounter Visit Diagnoses Diagnosis Squamous cell carcinoma of tongue Malignant neoplasm of tongue, unspecified site documented in this encounter Administered Medications Inactive Administered Medications - up to 3 most recent administrations Medication Order MAR Action Action Date Dose Rate Site iohexoL (Omnipaque) (350 mg/mL) solution 0-200 mL 0-200 mL, Intravenous, ONCE PRN, 1 dose, Starting on Blank 10/24/22 at 0843, Until Blank 10/24/22 at 0843, Per Protocol, Warning Vesicant/Irritant Medication , Radiology Contrast, Routine Given 10/24/2022 8:43 AM EST 110 mLs documented in this encounter Care Teams Dipper And Baker Relationship Specialty Start Date End Date Wilfrid Peck MD [address] [place] [id number] PCP - General 10/09/10 documented as of this encounter
--- OUTSIDE RECORDS SUMMARY | 2024-08-16 18:22 | XMS_ITS | Encounter Summary ---
Author Organization [facility] Address [facility] [place] [place] [address] Care Team Providers Care Floor Manager Name Role Phone Wilfrid Peck MD Primary Care Provider [phone] Encounter Details Date Type Department Care Team (Latest Contact Info) Description 11/12/2022 12:30 PM EST - 11/12/2022 11:59 PM EST Hospital Encounter Laboratory [facility] [place] [phone] Discharge Disposition: Home Social History Tobacco Use [...] place to sleep or slept in a care home (including now)? No 05/29/2022 Sex and Gender [...] Priority Date/Time Associated Diagnosis Comments SURGICAL PATHOLOGY REPORT Routine 11/12/2022 9:08 AM EST documented in this encounter Results * Surgical Pathology Report (11/12/2022 9:08 AM EST) Final Diagnosis [id number] ? Location: [facility] The signing pathologist has (i) examined the relevant preparation(s) for the specimen(s) and (ii) rendered or confirmed the diagnosis(es). . ?Surgical Pathology DIAGNOSIS A - Fibromembranous and fibroadipose tissue, hernia sac, umbilical hernia. Gross surgical pathology examination. Electronically signed by: ?Ayleen DELGADO, Feliciano Mcdonald Verified: ??11/13/2022 16:37 ??Pathologist Performed at: ??-[facility] Dept. of Pathology, [place] [address] Investment Consultant: Sadiq Orellana MD, AP, ??CLIA Certificate: [id number] SPECIMEN(S) SUBMITTED A - Hernial sac, ??() Referring Identifier: ?(not provided) CARBON COPY: Wilfrid Peck CLINICAL INFORMATION Umbilical hernia SPECIMEN PROCESSING A - Labeled/Fixative: Hernia sac, fresh. Quantity/Size/Weig ht: Single, 6.3 x 3.8 x 1.2 cm Tissue Description: Soft, valente-pink, semitransparent, membranous and fibroadipose tissue without grossly identifiable lesions. Sections/Processin g: No sections submitted, gross diagnosis only ??pps 11/13/2022 4:37 PM EST [facility] HERNIA SAC / Unknown 11/12/2022 9:08 AM EST 11/12/2022 9:08 AM EST Basil Fuentes MD PATHOLOGY/CYTO LOGY ORDERABLES [facility] [address] [place] [address] documented in this encounter Visit Diagnoses Not on filedocumented in this encounter Care Teams Floor Manager Relationship Specialty Start Date End Date Wilfrid Peck MD [address] [place] [id number] PCP - General 10/09/10 documented as of this encounter
--- OUTSIDE RECORDS SUMMARY | 2024-08-16 18:22 | XMS_ITS | Encounter Summary ---
Author Organization [facility] Address [facility] [place] [address] Care Team Providers Care Lead Consultant Name Role Phone Wilfrid Peck MD Primary Care Provider + [phone] Encounter Details Date Type Department Care Team (Late st Contact Info) Description 08/07/2022 Telephone Otolaryngology at [facility] [place] [address] Nika Cline Social History Tobacco Use Types Packs/Day Years [...] place to sleep or slept in a detention (including now)? No 05/29/2022 Sex and Gender Information Value Date Recorded Sex Assigned at Not on file Gender Identity Not on file Sexual Orientation Not on file documented as of this encounter Miscellaneous Notes * Telephone Encounter - Nika Cline - 08/07/2022 11:37 AM EDT Called pt to schedule F/u in 2 wks recheck with EULALIO or with DM with EULALIO in clinic per Elo Mcclellan. LVMfor pt to call back. documented in this encounter Plan of Treatment Not on file documented as of this encounter Visit Diagnoses Not on filedocumented in this encounter Care Teams Lead Consultant Relationship Specialty Start Date End Date Wilfrid Peck MD [address] [place] [phone] PCP - General 10/09/10 documented as of this encounter
--- OUTSIDE RECORDS SUMMARY | 2024-08-16 18:22 | XMS_ITS | Encounter Summary ---
Author Organization [facility] [place] [address] Care Team Providers Care Last Chalker Name Role Phone Wilfrid Peck MD Primary Care Provider + [phone] Encounter Details Date Type Department Care Team (Late st Contact Info) Description 10/22/2022 Orders Only Otolaryngology at [facility] [place] [phone] Brent Pro, RN Cancer of base of tongue Social History Tobacco Use Types Packs/Day Years [...] place to sleep or slept in a retirement (including now)? No 05/29/2022 Sex and Gender Information Value Date Recorded Sex Assigned at Not on file Gender Identity Not on file Sexual Orientation Not on file documented as of this encounter Plan of Treatment Not on file documented as of this encounter Results * Creatinine (10/24/2022 6:59 AM EST) Creatinine 0.84 0.80 - 1.50 mg/dL [facility] Est Glomerular Filtration Rate 98 >=60 mL/min/1. 73 m?? [facility] Comment: This patient's estimated GFR was calculated using the 2020 CKD-EPI equation. The estimated GFR can vary from the measured GFR by up to 30% in the absence of rapidly changing kidney function. Assessment of the estimated GFR is not appropriate when creatinine concentrations are rapidly changing. For clinical situations in which a more precise estimate of GFR is necessary, consider alternative methods of GFR estimation such as a 24-hour urine creatinine clearance. Assignment of CKD stage 1-5 for patients with an eGFR near the transition point between stages may be based on clinical assessment of muscle mass and symptoms in addition to eGFR. Blood 10/24/2022 6:59 AM EST 10/24/2022 7:17 AM EST Narrative Resulting Agency Comment Spec In Lab Glen Esparza MD CHEMISTRY ORDERABLE S Performing Organization Address City/State/[facility] Co de Phone Number [facility] [place] [address] documented in this encounter Visit Diagnoses Diagnosis Cancer of base of tongue Malignant neoplasm of base of tongue documented in this encounter Care Teams Last Chalker Relationship Specialty Start Date End Date Wilfrid Peck MD [address] [place] [id number] PCP - General 10/09/10 documented as of this encounter
--- OUTSIDE RECORDS SUMMARY | 2024-08-16 18:22 | XMS_ITS | Encounter Summary ---
Author Organization [facility] Address [facility] [place] [address] Care Team Providers Care Agile Tester Name Role Phone Wilfrid Peck MD Primary Care Provider [phone] Encounter Details Date Type Department Care Team (Latest Contact Info) Description 10/24/2022 Travel Social History Tobacco Use Types Packs/Day Years [...] place to sleep or slept in a intermediate (including now)? No 05/29/2022 Sex and Gender Information Value Date Recorded Sex Assigned at Not on file Gender Identity Not on file Sexual Orientation Not on file documented as of this encounter Plan of Treatment Not on file documented as of this encounter Visit Diagnoses Not on filedocumented in this encounter Care Teams Agile Tester Relationship Specialty Start Date End Date Wilfrid Peck MD [address] [place] [id number] PCP - General 10/09/10 documented as of this encounter
--- OUTSIDE RECORDS SUMMARY | 2024-08-16 18:22 | XMS_ITS | Encounter Summary ---
Author Organization [facility] [place] [address] Care Team Providers Care Diesel Engineer Name Role Phone Wilfrid Peck MD Primary Care Provider [phone] Reason for Visit * Auth/Cert Specialty Diagnoses / Procedures Referred By Contac t Referred To Contact Diagnoses Oropharyngeal cancer Procedures PRO PART REMOVAL TONGUE, <1/2 PRO PARTIAL REMOVAL OF PHARYNX PRO REMOVAL NODES, NECK, CERV MOD RAD PRO LARYNGOSCOPY, DIRECT, DX, OP MICROSCOP GLOSSECTOMY, PARTIAL, ROBOT (WRVU 11.14) PHARYNGECTOMY, LIMITED, ROBOT (WRVU 19.13) @CERVICAL LYMPHADENECTOMY (MODIFIED RADICAL NECK DISSECTION) (WRVU 23.95) LARYNGOSCOPY, WITH MICROSCOPE (WRVU 2.57) MODIFIER ROBOT,Cyrus Cha MD [facility] [place] [address] [facility] Referral ID Status Reason Start Date Expiration Date Visits Re quested Visits Authorized [id number] 1 Encounter Details Date Type Department Care Team (Latest Contact Info) Description 07/19/2022 7:10 AM EDT - 07/24/2022 4:25 PM EDT Hospital Encounter [facility] [place] [address] Cyrus Isaac MD [facility] [place] [address] Cancer of base of tongue; Tonsil cancer; Lymphadenopathy of head and neck Discharge Disposition: Home Social History Tobacco Use [...] place to sleep or slept in a jail (including now)? No 05/29/2022 Sex and Gender Information Value Date Recorded Sex Assigned at Not on file Gender Identity Not on file Sexual Orientation Not on file documented as of this encounter Last Filed Vital Signs Vital Sign Reading Time Taken Comments Blood Pressure 112/66 07/24/2022 12:00 PM EDT Pulse 60 07/24/2022 12:00 PM EDT Temperature 36.5 ??C (97.7 ??F) 07/24/2022 1 2:00 PM EDT Respiratory Rate 15 07/24/2022 12:0 0 PM EDT Oxygen Saturation 98% 07/24/2022 12: 00 PM EDT Inhaled Oxygen Concentration - - Weight 100.3 kg (221 lb 3.2 oz) 07/19/2022 7:26 AM EDT Height 190.5 cm (6' 3) 07/19/2022 7:26 AM EDT Body Mass Index 27.65 07/19/2022 7:26 AM EDT documented in this encounter Discharge Summaries * Jazmine Hinds MD - 07/24/2022 2:42 PM EDT OTOLARYNGOLOGY - HEAD & NECK SURGERY DISCHARGE SUMMARY General Info Patient Name: Feliciano Hill Patient Age: 61 y.o. 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 Esparza's note on 06/06/2022 61 y.o.??male??with a PMH of tobacco use who had a several month history of level 2 and 3 lymphadenopathy of the right neck as well as concern for a lesion along the right base of tongue who was taken to the OR for a direct laryngoscopy and biopsies 05.27.22. he was noted to have a lesion in the lateral R BOT. ?? He was presented at [facility] with options of chemoradiation therapy vs TORS. Was evaluated by Dr Leger earlier. ?? Was also due to see Dr Isaac however he is unavailable. ?? Denies new complaints, no change in neck mass ?? Discussed with patient TORS in broad terms highlighting objectives, however details to be followingconsultation with Dr Isaac. Questions all answered to his and 's satisfaction Reason for Admission: post-operative monitoring Hospital Course: The patient tolerated the above procedure well and was admitted post-operatively for routine care. The patient was admitted on 09/02. POD1: tolerating full liquid diet, pain controlled with his scheduled medications that were IV. POD2: transferred pain medications from IV to oral which he tolerated. POD3: has pain with swallowing, but continues to tolerate diet and PO medications. POD4: tolerating diet, pain required IV dilaudid. POD5: continues to tolerate diet, low drain OP allowed for drain removal, back to PO pain medications, patient comfortable and ready for discharge. His hospital course was uncomplicated and he was deemed medically stable for discharge home at 5 Days Post-Op. Prior to discharge his pain was controlled on oral pain meds and he was tolerating a Full Liquid. Physical Exam on Discharge: General: NAD, non-ill appearing??gentleman, sitting upright in bed, family at bedside Face: Symmetric without dysmorphic features Eyes: EOMI, conjunctiva healthy Ears: Auricles symmetric, no lesions Nose: Patent nares Oral Cavity/Pharynx: Mucosa is pink, oropharynx symmetric, no active bleeding Neck: Soft,??incisions c/d/i Chest: Unlabored breathing, regular rate Neuro: Alert & oriented, moving extremities x 4, answering questions appropriately Lab Data: No results for input(s): WBC, HGB, HCT, PLATELET, PT, INR, PTT, NA, K, CL, CO2, BUN, CREATININE, GLUCOSE, CALCIUM, MAGNESIUM, PHOS in the last 72 hours. Imaging and Other Studies: - no post-operative imaging Discharge Info Discharge Condition: Stable Discharge to: Home Discharge Medications: Your Medications New Medications Dose Details amoxicillin-clavulanate 875-125 mg Tab Commonly known as: Augmentin Take 1 tablet by mouth 2 times daily for 7 days. 1 tablet Quantity: 14 tablet Refills: 0 chlorhexidine 0.12 % Mwsh Commonly known as: Peridex Take 15 mLs by mouth 3 times daily. 15 mL Quantity: 120 mL Refills: 0 hydroCHLOROthiazide 12.5 mg Tab Commonly known as: Hydrodiuril Take 1 tablet by mouth daily. Start taking on: July 25, 2022 12.5 mg Quantity: 90 tablet Refills: 3 HYDROmorphone 1 mg/mL Liqd Commonly known as: Dilaudid Take 2 mLs by mouth every 3 hours as needed for Pain. 2 mg Quantity: 100 mL Refills: 0 lisinopriL 10 mg Tab Commonly known as: Zestril Take 1 tablet by mouth daily. Start taking on: July 25, 2022 10 mg Quantity: 90 tablet Refills: 3 Continued medications with new dosing Dose Details acetaminophen 325 mg Tab Commonly known as: Tylenol Take 3 tablets by mouth every 6 hours. What changed: how much to take when to take this reasons to take this 975 mg Quantity: 30 tablet Refills: 1 ibuprofen 600 mg Tab Commonly known as: Advil Take 1 tablet by mouth every 6 hours. What changed: medication strength how much to take when to take this reasons to take this 600 mg Quantity: 30 tablet Refills: 12 STOPPED Medications KRILL OIL ORAL lisinopriL-hydrochlorothiazide 10-12.5 mg Tab Commonly known as: Zestoretic UNABLE TO FIND VITAMIN B-12 ORAL VITAMIN C ORAL VITAMIN D ORAL Updated Allergies/ADRs: No Known Allergies Info for Patient Patient Instructions Instructions for Patient at Discharge: What to expect: You will have soreness which will improve over the next several days. The area around the incision may be numb. This should recover over the next few months. Medications: Antibiotics - take the antibiotics as prescribed Take Augmentin twice a day for 7 days. Pain Control - use acetaminophen (Tylenol) and/or ibuprofen (Motrin, Advil) as needed. You can take 500 mg to 650 mg of Tylenol every 4-6 hours as needed. Do not exceed 4g acetaminophen per day and do not drink alcohol while taking tylenol. You can also take 400 to 600 mg of Ibuprofen (Motrin,Advil) every 6 hours as needed. For more severe pain, take the prescribed pain medication every 4-6 hours. As your pain improves, wean yourself off of the prescribed pain medication. Do not drive or operatemachinery while taking the prescribed pain medication. Constipation - Consider the use of OTC Senna/Docusate, Miralax, Metamucil, prune juice or various suppositories if you have any constipation (especially if related to narcotic/opoid related pain medication) Incision Care: Your incision was closed with sutures/nathalia. These will need to be removed in about 7-14 days, which will usually occur at your follow up appointment. Use diluted peroxide to clean the incision andapply Aquaphor/Vaseline twice daily. Keep the incision dry for the next two days. After that you may get the area wet and pat dry (it is okay to shower). Do not submerge the incision for at least 2 weeks. Oral Care: For all patients who had major oral surgery, you will be given a script for Peridex Rinse your mouth out well with water after eating, then use the prescription mouthwash (Peridex/Chlorhexidine) every time after eating. You should also use this mouthwash first thing in the morning and just before be dtime. You can get Peridex on the $4 list at [facility]. Activity: A good rule of thumb is if it hurts don't do it. Keep your head elevated when lying flat. No heavy lifting or straining for the next week. No smoking, this is important for wound healing. Diet: Continue your liquid diet at home Follow this diet until your follow up appointment. Other: Use your at home suction device as needed. You should call your doctor if you develop: -Increasing pain and redness -Increasing drainage from the wound -Fever > 38.5Celsius or 101 Fahrenheit -Bleeding Contact: -You can reach the ENT clinic at [phone] for appointment questions. -The ENT triage nurse is available at [phone] -For urgent issues during evenings (5 PM - 7 AM) and weekends the ENT resident service loss control consultant can be reached through the main hospital logging equipment operator at [phone] Follow Up: You will need to follow up with ENT within 1 week. This appointment has been requested. You will benotified once it is scheduled, if you do not already see it below. If you do not hear from us in a timely manner, please call to receive your date and time. Currently Scheduled Appointments: Future Appointments and Orders Future Appointments and Orders Future Appointments Provider Department Dept Phone 07/29/2022 11:00 AM Martell Camargo PA Otolaryngology at [facility] Arrive at: Funeral Home Attendant Area [phone] Future Orders Complete By Expires Durable Medical Equipment Order [EQ148 Custom] As directed Process Instructions: Scheduling Instructions: Comments: Please provide one standard portable suction machine to be provided to pt's room on day of d/c. Pt requires r/t inability to manage own secretions without assist of suction device, s/p surgical intervention for tongue CA. PLEASE PROVIDE: (1) 50 PSI portable suction machine (12) vented yankauer suction catheters (12) suction machine canisters/tubing Questions: Name/Description of requested item: portable suction machine and supplies Size requested: standard Vendor Name/Contact information: [facility] General Instructions None __ Your Medications New Medications Dose Details amoxicillin-clavulanate 875-125 mg Tab Commonly known as: Augmentin Take 1 tablet by mouth 2 times daily for 7 days. 1 tablet Quantity: 14 tablet Refills: 0 chlorhexidine 0.12 % Mwsh Commonly known as: Peridex Take 15 mLs by mouth 3 times daily. 15 mL Quantity: 120 mL Refills: 0 hydroCHLOROthiazide 12.5 mg Tab Commonly known as: Hydrodiuril Take 1 tablet by mouth daily. Start taking on: July 25, 2022 12.5 mg Quantity: 90 tablet Refills: 3 HYDROmorphone 1 mg/mL Liqd Commonly known as: Dilaudid Take 2 mLs by mouth every 3 hours as needed for Pain. 2 mg Quantity: 100 mL Refills: 0 lisinopriL 10 mg Tab Commonly known as: Zestril Take 1 tablet by mouth daily. Start taking on: July 25, 2022 10 mg Quantity: 90 tablet Refills: 3 Continued medications with new dosing Dose Details acetaminophen 325 mg Tab Commonly known as: Tylenol Take 3 tablets by mouth every 6 hours. What changed: how much to take when to take this reasons to take this 975 mg Quantity: 30 tablet Refills: 1 ibuprofen 600 mg Tab Commonly known as: Advil Take 1 tablet by mouth every 6 hours. What changed: medication strength how much to take when to take this reasons to take this 600 mg Quantity: 30 tablet Refills: 12 STOPPED Medications KRILL OIL ORAL lisinopriL-hydrochlorothiazide 10-12.5 mg Tab Commonly known as: Zestoretic UNABLE TO FIND VITAMIN B-12 ORAL VITAMIN C ORAL VITAMIN D ORAL Scheduled Appointments: Future Appointments Date Time Provider Department Center 07/29/2022 11:00 AM Martell Camargo PA [facility] Outpatient Services/Studies: No discharge procedures on file. Primary Care Doctor: Wilfrid Peck MD [phone] Signed: Jazmine Hinds MD 07/24/2022 Routed to Delia Zazueta and Gladis Fritz since H&N Cancer patient documented in this encounter Discharge Instructions * Patient Instructions* Jazmine Hinds MD - 07/24/2022 2:34 PM EDT Instructions for Patient at Discharge: What to expect: You will have soreness which will improve over the next several days. The area around the incision may be numb. This should recover over the next few months. Medications: Antibiotics - take the antibiotics as prescribed Take Augmentin twice a day for 7 days. Pain Control - use acetaminophen (Tylenol) and/or ibuprofen (Motrin, Advil) as needed. You can take 500 mg to 650 mg of Tylenol every 4-6 hours as needed. Do not exceed 4g acetaminophen per day and do not drink alcohol while taking tylenol. You can also take 400 to 600 mg of Ibuprofen (Motrin,Advil) every 6 hours as needed. For more severe pain, take the prescribed pain medication every 4-6 hours. As your pain improves, wean yourself off of the prescribed pain medication. Do not drive or operatemachinery while taking the prescribed pain medication. Constipation - Consider the use of OTC Senna/Docusate, Miralax, Metamucil, prune juice or various suppositories if you have any constipation (especially if related to narcotic/opoid related pain medication) Incision Care: Your incision was closed with sutures/nathalia. These will need to be removed in about 7-14 days, which will usually occur at your follow up appointment. Use diluted peroxide to clean the incision andapply Aquaphor/Vaseline twice daily. Keep the incision dry for the next two days. After that you may get the area wet and pat dry (it is okay to shower). Do not submerge the incision for at least 2 weeks. Oral Care: For all patients who had major oral surgery, you will be given a script for Peridex Rinse your mouth out well with water after eating, then use the prescription mouthwash (Peridex/Chlorhexidine) every time after eating. You should also use this mouthwash first thing in the morning and just before be dtime. You can get Peridex on the $4 list at [facility]. Activity: A good rule of thumb is if it hurts don't do it. Keep your head elevated when lying flat. No heavy lifting or straining for the next week. No smoking, this is important for wound healing. Diet: Continue your liquid diet at home Follow this diet until your follow up appointment. Other: Use your at home suction device as needed. You should call your doctor if you develop: -Increasing pain and redness -Increasing drainage from the wound -Fever > 38.5Celsius or 101 Fahrenheit -Bleeding Contact: -You can reach the ENT clinic at [phone] for appointment questions. -The ENT triage nurse is available at [phone] -For urgent issues during evenings (5 PM - 7 AM) and weekends the ENT resident service loss control consultant can be reached through the main hospital logging equipment operator at [phone] Follow Up: You will need to follow up with ENT within 1 week. This appointment has been requested. You will benotified once it is scheduled, if you do not already see it below. If you do not hear from us in a timely manner, please call to receive your date and time. Currently Scheduled Appointments: Future Appointments and Orders Future Appointments and Orders Future Appointments Provider Department Dept Phone 07/29/2022 11:00 AM Martell Camargo PA Otolaryngology at [facility] Arrive at: Funeral Home Attendant Area 4F [phone] Future Orders Complete By Expires Durable Medical Equipment Order [EQ148 Custom] As directed Process Instructions: Scheduling Instructions: Comments: Please provide one standard portable suction machine to be provided to pt's room on day of d/c. Pt requires r/t inability to manage own secretions without assist of suction device, s/p surgical intervention for tongue CA. PLEASE PROVIDE: (1) 50 PSI portable suction machine (12) vented yankauer suction catheters (12) suction machine canisters/tubing Questions: Name/Description of requested item: portable suction machine and supplies Size requested: standard Vendor Name/Contact information: [employer] documented in this encounter Medications at Time of Discharge Medication Sig Dispensed Refills Start Date End Date acetaminophen (Tylenol) 325 mg Tablet Take 3 [...] mouth 3 times daily. 120 mL 07/24/2022 amoxicillin-clavulanate (Augmentin) 875-125 mg Tablet Take 1 tablet by mouth 2 times daily for 7 days. 14 tablet 07/24/2022 07/31/2022 documented as of this encounter Progress Notes * Rebekah Marte - 07/23/2022 3:37 PM EDT [place] Encounter Note Patient Name: Feliciano Hill : [id number] MR#: [id number] Admit Date: 07/19/2022 7:10 AM Hospital Day 4 days Narrative: Visited patient on unit rounds. He was sitting up in his chair. Assessment: Patient is optimistic. He said that his cancer is fully treatable and that he has a good prognosis.He doesn't feel good right now but knows that he just has to get through this time. Intervention and Outcome: Talked with patient about what has been meaningful about his life. He said that he has been mary [place] and had a good life. He has raised two kids and that is what is important to him. Affirmed that he isgrateful for his family and proud of raising his kids. Wished him well for things going in a good direction. Follow-up: Will plan to follow up for continued support. Time in Direct Care: 20 minutes. Rebekah Marte 07/23/2022 * Ester Joseph RN - 07/23/2022 3:05 PM EDT OUTCOME EVALUATION NOTE: OUTCOME SUMMARY: Continues to have increased pain with swallowing. Requested 10mg oxycodone before/during breakfast. Declines to take that amount again, as he did notlike the way it made him feel. 5mg dose of oxycodone utilized subsequently with mild effect. Pt stated that he has not felt comfortable with any dose of medication he has taken so far. Pt agreeable to take PRN IV dilaudid. Pt unsure of effectiveness of initial dose, but did endorse being able to open his mouth more and appeared slightly more relaxed. Pt agreeable to continue IV PRNdilaudid until he is more comfortable. Melatonin increased to 6mg to promote better sleep. Pt to stay on full liquid diet, changes made to diet order to optimize PO intake. Ice applied to neck, and ice chips utilized PO to help with pain/swelling. Clarified with attending that pt is able to walk off unit with family, no staff members needed. Walking encouraged. EULALIO drain put out 10mls. Plan to remove next Friday. Family at bedside. PLAN MOVING FORWARD: Pain control, VSq4, encourage ambulation. INDIVIDUALIZED FALL PREVENTION INTERVENTIONS: Patient-specific fall risk factors per assessment: EKG, IVS, O2 monitor Assistance: SBA Supervision: Eyes on Surveillance: Bed locked in low position, call mahoney within reach, purposeful hourly rounding, clutter free environment, bed/chair alarm on Continue care plan as documented. * Huong Root RN - 07/23/2022 10:52 AM EDT The Patient has been provided a list of Home Health Agencies/DME vendors which serve their preferred geographic area. A letter describing our affiliations was reviewed with them and they were educated about their right to choose where referrals are placed. Provided patient with [facility] Star Quality Rating for Home care hand out. Patient requests referral to : [facility] (Resp Supplies) Central Intake: [place]: [place]: -They cover all [place] *for suction machine Expected date of discharge: 07/23/22. Referral routed to the Cleaner Window for matching with agency/vendor and to provide any required information. Huong Root MSN-Ed, RN ACM airways control specialist Office of Care Management Pager #[phone] * Jazmine Hinds MD - 07/23/2022 6:05 AM EDT OTOLARYNGOLOGY - HEAD & NECK SURGERY DAILY PROGRESS NOTE Name: Feliciano Hill Age/Sex: 61 y.o. male Attending: Cyrus Isaac MD Hospital Day: 5 4 Days Post-Op Patient ID/Reason for Admission This patient presented with right neck mass which has been present since November 2021. 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 After reviewing treatment and management options he is elected to proceed with transoral robotic resection. He is admitted postoperatively following TORS partial glossectomy, pharyngectomy and right ND. Interval History - No events overnight - Tolerating full liquid diet, continues to have throat discomfort w/ PO intake - Able to ambulate in the davies Vitals Last value 24hr Range Temperature: 36.6 ??C (97.8 ??F) Temp: [36.1 ??C (96.9 ??F)-36.8 ??C (98.2 ??F)] Heart Rate: 61 Heart Rate: [51-61] Blood Pressure: 131/72 BP: (120-143)/(70-79) Respiratory Rate: 19 Resp: [14-19] SpO2: 98 % SpO2: [96 %-99 %] on RA Intake & Output Intake/Output Summary (Last 24 hours) at 07/23/2022 0606 Last data filed at 07/23/2022 0400 Gross per 24 hour Intake 770 ml Output 940 ml Net -170 ml - PO intake: 470 - Drain (R anterior neck): 20 (20) Physical Exam General: NAD, non-ill appearing gentleman, sitting upright in bed, conversant Face: Symmetric without dysmorphic features Eyes: EOMI, conjunctiva healthy Ears: Auricles symmetric, no lesions Nose: Patent nares Oral Cavity/Pharynx: Mucosa is pink, oropharynx symmetric, no active bleeding, wound bed has scant granulation tissue Neck: Soft, incisions c/d/i, drain with minimal ss output Chest: Unlabored breathing, regular rate Neuro: Alert & oriented, moving extremities x 4, answering questions appropriately Labs No results for input(s): WBC, HGB, HCT, PLATELET, PT, INR, PTT, NA, K, CL, CO2, BUN, CREATININE, GLUCOSE, CALCIUM, MAGNESIUM, PHOS in the last 72 hours. Imaging - No post operative imaging ASSESSMENT & PLAN Feliciano Hill is a 61 y.o. male s/p TORS with right ND, 4 Days Post-Op. Progressing well, continues to have pain with swallowing but will try his higher dose of oxycodone to see if it helps. Surgical/Head&Neck: Continue full liquid diet (no residue/pulp please) Peridex swishes Apply aquaphor to incisions Neurologic: Pain controlled with acetaminophen/ibuprofen CRISTIAN, oxycodone and dilaudid IV PRN; melatonin nightly Cardiovascular: Continue home lisinopril and HCTZ Pulmonary: Oxygenation on RA Gastrointestinal: n/a, order zofran PRN as needed for nausea Genitourinary: FLAVIA Musculoskeletal: AAT Fluids/Electrolytes: CTM PRN Nutrition: Full Liquid Infectious Disease: On unasyn Hematology: FLAVIA Endocrine: FLAVIA Consults: n/a Lines: PIV Prophylaxis: SCD, ambulation Disposition: Floor status, Attempt Cardiopulmonary Resuscitation - Inpatient Discharge: Follow-up ENT requested Jazmine Hinds MD, PGY1 07/23/22 6:06 AM ENT Team Pager: [phone] * Katheryn Juarez MD - 07/22/2022 12:28 PM EDT OTOLARYNGOLOGY - HEAD & NECK SURGERY DAILY PROGRESS NOTE Name: Feliciano Hill Age/Sex: 61 y.o. male Attending: Cyrus Isaac MD Hospital Day: 4 3 Days Post-Op Patient ID/Reason for Admission This patient presented with right neck mass which has been present since November 2021. 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 After reviewing treatment and management options he is elected to proceed with transoral robotic resection. He is admitted postoperatively following TORS partial glossectomy, pharyngectomy and right ND. Interval History No events overnight. Pain is well controlled tolerating diet well and has been able to take in fairamounts of PO but feeling more problems swallowing medications this morning and feeling tired. His was at bedside. Vitals Last value 24hr Range Temperature: 36.6 ??C (97.8 ??F) Temp: [36 ??C (96.8 ??F)-36.6 ??C (97.9 ??F)] Heart Rate: 58 Heart Rate: [48-60] Blood Pressure: 130/79 BP: (117-143)/(69-89) Respiratory Rate: 15 Resp: [13-17] SpO2: 99 % SpO2: [95 %-99 %] Intake & Output Intake/Output Summary (Last 24 hours) at 07/22/2022 1228 Last data filed at 07/22/2022 1056 Gross per 24 hour Intake 650 ml Output 2230 ml Net -1580 ml Physical Exam General: NAD, non-ill appearing gentleman resting in chair Face: Symmetric without dysmorphic features Eyes: EOMI, conjunctiva healthy Ears: Auricles symmetric, no lesions Nose: Patent nares Oral Cavity/Pharynx: Mucosa is pink, oropharynx symmetric, no active bleeding, wound bed has scant granulation tissue Neck: Soft, incisions c/d/i, drain with ss output Chest: Unlabored breathing, regular rate Neuro: Alert & oriented, moving extremities x 4, answering questions appropriately Labs Recent Labs 07/20/22 0049 07/19/22 1544 NA 138 139 K 4.4 4.5 CL 103 104 CO2 24 23 BUN 18 18 CREATININE 0.92 0.97 GLUCOSE 165 158 CALCIUM 9.0 9.3 MAGNESIUM 0.80 -- PHOS 3.0 -- Imaging n/a *Personally reviewed and evaluated ASSESSMENT & PLAN Feliciano Hill is a 61 y.o. male s/p TORS with right ND, 3 Days Post-Op. Appears to be doing well, will progress diet and continue to monitor. Plan for ambulation. Switch medications from liquid form to pills per patient request. Surgical/Head&Neck: Humidified face tent Continue full liquid diet (no residue/pulp please) Ok to shower Peridex swishes Apply aquaphor to incisions Neurologic: Pain controlled with acetaminophen/ibuprofen CRISTIAN, oxycodone and dilaudid IV PRN Cardiovascular: Continue home lisinopril and HCTZ Pulmonary: Oxygenation on RA humidified face tent Gastrointestinal: n/a, order zofran PRN as needed for nausea Genitourinary: Continue bladder checks as needed Musculoskeletal: AAT Fluids/Electrolytes: CTM PRN Nutrition: Full Liquid Infectious Disease: On unasyn Hematology: FLAVIA Endocrine: FLAVIA Consults: n/a Lines: PIV Prophylaxis: SCD, ambulation Disposition: Floor status, Attempt Cardiopulmonary Resuscitation - Inpatient Discharge: Plan for d/c tomorrow, no needs; Follow-up ENT Katheryn Juarez MD, PGY3 07/22/22 12:28 PM ENT Team Pager: [phone] * Ester Joseph RN - 07/21/2022 11:59 AM EDT OUTCOME EVALUATION NOTE: OUTCOME SUMMARY: Some c/o pain, especially with swallowing. Medications transitioned from IV to oral in preparation for discharge. Ice and scheduled medications utilized with moderate effect. Pt initially declining PRNs (worried that it would hold up discharge tomorrow), but agreeable to try oral oxycodone around dinnertime in order to promote better PO intake. Able to ambulate in [place] independently. Able to take long walk, ambulating around campus (including taking stairs) with staff. Family at bedside. PLAN MOVING FORWARD: Pain control, VSq4, encourage ambulation. INDIVIDUALIZED FALL PREVENTION INTERVENTIONS: Patient-specific fall risk factors per assessment: EKG, IVS, O2 monitor Assistance: SBA Supervision: Eyes on Surveillance: Bed locked in low position, call mahoney within reach, purposeful hourly rounding, clutter free environment, bed/chair alarm on Continue care plan as documented. * Katheryn Juarez MD - 07/21/2022 11:32 AM EDT OTOLARYNGOLOGY - HEAD & NECK SURGERY DAILY PROGRESS NOTE Name: Feliciano Hill Age/Sex: 61 y.o. male Attending: Cyrus Isaac MD Hospital Day: 3 2 Days Post-Op Patient ID/Reason for Admission This patient presented with right neck mass which has been present since November 2021. 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 After reviewing treatment and management options he is elected to proceed with transoral robotic resection. He is admitted postoperatively following TORS partial glossectomy, pharyngectomy and right ND. Interval History No events overnight. Pain is well controlled tolerating diet well and has been able to take in fairamounts of PO. Family was at bedside this morning, transitioned to oral pain medications and transitioned to floor status. Vitals Last value 24hr Range Temperature: 36.7 ??C (98.1 ??F) Temp: [36.2 ??C (97.2 ??F)-37 ??C (98.6 ??F)] Heart Rate: 66 Heart Rate: [47-71] Blood Pressure: 135/72 BP: (107-135)/(56-72) Respiratory Rate: 17 Resp: [12-26] SpO2: 93 % SpO2: [92 %-96 %] Intake & Output Intake/Output Summary (Last 24 hours) at 07/21/2022 1132 Last data filed at 07/21/2022 1044 Gross per 24 hour Intake 2770 ml Output 2225 ml Net 545 ml Physical Exam General: NAD, non-ill appearing gentleman resting in chair with facetent on Face: Symmetric without dysmorphic features Eyes: EOMI, conjunctiva healthy Ears: Auricles symmetric, no lesions Nose: Patent nares Oral Cavity/Pharynx: Mucosa is pink, oropharynx symmetric, no active bleeding, wound bed has scant granulation tissue Neck: Soft, incisions c/d/i, drain with ss output Chest: Unlabored breathing, regular rate Neuro: Alert & oriented, moving extremities x 4, answering questions appropriately Labs Recent Labs 07/20/22 0049 07/19/22 1544 NA 138 139 K 4.4 4.5 CL 103 104 CO2 24 23 BUN 18 18 CREATININE 0.92 0.97 GLUCOSE 165 158 CALCIUM 9.0 9.3 MAGNESIUM 0.80 -- PHOS 3.0 -- Imaging n/a *Personally reviewed and evaluated ASSESSMENT & PLAN Feliciano Hill is a 61 y.o. male s/p TORS with right ND, 2 Days Post-Op. Appears to be doing well, will progress diet and continue to monitor. Plan for ambulation. Surgical/Head&Neck: Humidified face tent Continue full liquid diet (no residue/pulp please) Peridex swishes Apply aquaphor to incisions Neurologic: Pain controlled with acetaminophen/ibuprofen CRISTIAN, oxycodone and dilaudid IV PRN Cardiovascular: Continue home lisinopril and HCTZ Pulmonary: Oxygenation on RA humidified face tent Gastrointestinal: n/a, order zofran PRN as needed for nausea Genitourinary: Continue bladder checks as needed Musculoskeletal: AAT Fluids/Electrolytes: CTM PRN Nutrition: Full Liquid Infectious Disease: On unasyn Hematology: FLAVIA Endocrine: FLAVIA Consults: n/a Lines: PIV Prophylaxis: SCD, ambulation Disposition: Floor status, Attempt Cardiopulmonary Resuscitation - Inpatient Discharge: Plan for d/c tomorrow, no needs; Follow-up ENT Katheryn Juarez MD, PGY3 07/21/22 11:32 AM ENT Team Pager: [phone] * Yenni Wyatt RN - 07/21/2022 5:01 AM EDT No acute events. Pt c/o increase salivation. No c/o pain. No visible distress noted. VSS. Call light in reach. * Coraozn Varner RCP - 07/21/2022 2:00 AM EDT Received patient on face tent 8L 21%, no significant issues throughout the shift. Will continue to monitor as needed. Corazon Varner RCP * Katheryn Juarez MD - 07/20/2022 10:42 AM EDT OTOLARYNGOLOGY - HEAD & NECK SURGERY DAILY PROGRESS NOTE Name: Feliciano Hill Age/Sex: 61 y.o. male Attending: Cyrus Isaac MD Hospital Day: 2 1 Day Post-Op Patient ID/Reason for Admission This patient presented with right neck mass which has been present since November 2021. 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 After reviewing treatment and management options he is elected to proceed with transoral robotic resection. He is admitted postoperatively following TORS partial glossectomy, pharyngectomy and right ND. Interval History No events overnight. Pain is well controlled tolerating diet well and has been able to take in fairamounts of PO. Vitals Last value 24hr Range Temperature: 36.8 ??C (98.2 ??F) Temp: [36.3 ??C (97.3 ??F)-37.1 ??C (98.8 ??F)] Heart Rate: 79 Heart Rate: [55-81] Blood Pressure: 123/67 BP: (118-169)/(66-95) Respiratory Rate: 17 Resp: [12-24] SpO2: 95 % SpO2: [92 %-98 %] Intake & Output Intake/Output Summary (Last 24 hours) at 07/20/2022 1042 Last data filed at 07/20/2022 0600 Gross per 24 hour Intake 1480 ml Output 1721 ml Net -241 ml Physical Exam General: NAD, non-ill appearing gentleman lying comfortably in bed with facetent on Face: Symmetric without dysmorphic features Eyes: EOMI, conjunctiva healthy Ears: Auricles symmetric, no lesions Nose: Patent nares Oral Cavity/Pharynx: Mucosa is pink, oropharynx symmetric, no active bleeding, wound bed has scant granulation tissue Neck: Soft, incisions c/d/i, drain with ss output Chest: Unlabored breathing, regular rate Neuro: Alert & oriented, moving extremities x 4, answering questions appropriately Labs Recent Labs 07/20/22 0049 07/19/22 1544 NA 138 139 K 4.4 4.5 CL 103 104 CO2 24 23 BUN 18 18 CREATININE 0.92 0.97 GLUCOSE 165 158 CALCIUM 9.0 9.3 MAGNESIUM 0.80 -- PHOS 3.0 -- Imaging n/a *Personally reviewed and evaluated ASSESSMENT & PLAN Feliciano Hill is a 61 y.o. male s/p TORS with right ND, 1 Day Post-Op. Appears to be doing well, will progress diet and continue to monitor. Surgical/Head&Neck: Humidified face tent Continue full liquid diet (no residue/pulp please) Peridex swishes Apply aquaphor to incisions Neurologic: Pain controlled with acetaminophen/toradol CRISTIAN, dilaudid IV PRN Cardiovascular: Continue home lisinopril and HCTZ Pulmonary: Oxygenation on RA humidified face tent Gastrointestinal: n/a, order zofran PRN as needed for nausea Genitourinary: Continue bladder checks as needed Musculoskeletal: AAT Fluids/Electrolytes: CTM PRN Nutrition: Full Liquid Infectious Disease: On unasyn Hematology: FLAVIA Endocrine: FLAVIA Consults: n/a Lines: PIV Prophylaxis: SQH, SCD, ambulation Disposition: Stepdown status, possible DG to floor 07/21, Attempt Cardiopulmonary Resuscitation - Inpatient Discharge: Plan for d/c TBD; Follow-up ENT Katheryn Juarez MD, PGY3 07/20/22 10:42 AM ENT Team Pager: [phone] * Jennifer Lion RN - 07/20/2022 6:00 AM EDT OUTCOME EVALUATION NOTE: OUTCOME SUMMARY: Pt had procedure today, pain controlled with scheduled pain medications. VSS on RA. Pt urinating via urinal, tolerating CLD. Pt walking around unit with walker and SBA. EULALIO drain output for shift was 26 cc sanguinous fluid. Incision site care completed. PLAN MOVING FORWARD: Pain control, VSq4, encourage ambulation. INDIVIDUALIZED FALL PREVENTION INTERVENTIONS: Patient-specific fall risk factors per assessment: EKG, IVS, O2 monitor Assistance: SBA Supervision: Eyes on Surveillance: Bed locked in low position, call mahoney within reach, purposeful hourly rounding, clutter free environment, bed/chair alarm on Continue care plan as documented. * Leonel Quinones RN - 07/19/2022 8:12 PM EDT * Jazmine Hinds MD - 07/19/2022 4:47 PM EDT OTOLARYNGOLOGY - HEAD & NECK SURGERY POST OP CHECK Name: Feliciano Hill Age/Sex: 61 y.o. male Attending: Cyrus Isaac MD Hospital Day: 1 Day of Surgery Patient ID/Reason for Admission Feliciano Hill is a 61 y.o. male with a hx of tobacco use now s/p partial glossectomy, limited pharyngectomy, cervical lymphadenectomy. Interval History Surgery: Procedure(s): GLOSSECTOMY, PARTIAL, ROBOT (WRVU 11.14) PHARYNGECTOMY, LIMITED, ROBOT (WRVU 19.13) @CERVICAL LYMPHADENECTOMY (MODIFIED RADICAL NECK DISSECTION) (WRVU 23.95) LARYNGOSCOPY, MICROSCOPE, WITH BIOPSY (WRVU 3.55) MODIFIER ROBOT,DAVINCI XI Subjective/Events: Patient denies fever, chills, chest pain, shortness of breath, dizziness, headache, abdominal pain, nausea, vomiting, numbness, tingling. Pain well-controlled. Vitals Last value 24hr Range Temperature: 36.9 ??C (98.4 ??F) Temp: [36.1 ??C (97 ??F)-37.1 ??C (98.8 ??F)] Heart Rate: 66 Heart Rate: [54-81] Blood Pressure: 136/70 BP: (132-169)/(70-95) Respiratory Rate: 18 Resp: [12-19] SpO2: 96 % SpO2: [92 %-98 %] Intake & Output Intake/Output Summary (Last 24 hours) at 07/19/2022 1638 Last data filed at 07/19/2022 1415 Gross per 24 hour Intake 1550 ml Output 520 ml Net 1030 ml Physical Exam General: NAD, non-ill appearing gentleman lying comfortably in bed, family at bedside Face: Symmetric without dysmorphic features Eyes: EOMI, conjunctiva healthy Ears: Auricles symmetric, no lesions Nose: Patent nares, dried blood around nares, NC in place Oral Cavity/Pharynx: Mucosa is pink, oropharynx symmetric, no active bleeding Neck: Soft, incisions c/d/i, drain with ss output Chest: Unlabored breathing, regular rate Neuro: Alert & oriented, moving extremities x 4, answering questions appropriately Labs No results for input(s): WBC, HGB, HCT, PLATELET, PT, INR, PTT, NA, K, CL, CO2, BUN, CREATININE, GLUCOSE, CALCIUM, MAGNESIUM, PHOS in the last 72 hours. Imaging - No postoperative imaging ASSESSMENT & PLAN Feliciano Hill is a 61 y.o. male s/p Procedure(s): GLOSSECTOMY, PARTIAL, ROBOT (WRVU 11.14) PHARYNGECTOMY, LIMITED, ROBOT (WRVU 19.13) @CERVICAL LYMPHADENECTOMY (MODIFIED RADICAL NECK DISSECTION) (WRVU 23.95) LARYNGOSCOPY, MICROSCOPE, WITH BIOPSY (WRVU 3.55) MODIFIER ROBOT,MARCELAINCI XI. Patient is doing well postoperatively. Continue with current care plan. __ Jazmine Hinds MD, PGY1 07/19/22 4:38 PM ENT Team Pager: [phone] * Adriane Garcia RN - 07/19/2022 1:30 PM EDT 13:12 Pt arrived to PACU. Sedated. Nathalia to R neck with x1 drain, ANGELA with petroleum dressing. Hypertensive, labetalol given by vice president talent management. 14:00 Pt awake and alert, oriented x4. Reports some pain to R neck and throat but reports is tolerable. 14:27 Report called to ra [facility] [place]. documented in this encounter H&P Notes * Martell Camargo PA - 07/19/2022 8:01 AM EDT OTOLARYNGOLOGY - HEAD & NECK SURGERY PRE OP H&P Name: Feliciano Hill Age/Sex: 61 y.o. male Attending: Cyrus Isaac MD Interval History Feliciano Hill's condition unchanged since H&P originally performed. Denies any new ED visits, hospitalizations, trauma, or new events. Has been overall doing well. He denies recent fevers, chills, chest pain, issues with breathing, nausea, vomiting, and/or changes in bowel habits. Vitals Last value 24hr Range Temperature: 36.1 ??C (97 ??F) Temp: [36.1 ??C (97 ??F)] Heart Rate: 54 Heart Rate: [54] Blood Pressure: 149/86 BP: (149)/(86) Respiratory Rate: 18 Resp: [18] SpO2: 97 % SpO2: [97 %] Physical Exam General: NAD, alert. Heart: RRR. Lungs: CTAB. Neuro: CN 2-12 intact bilaterally. ASSESSMENT & PLAN Feliciano Hill is a 61 y.o. 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 After extensive discussion of the risks, benefits, and alteratives of surgical intervention, the patient consented to proceed with surgery. Proceed to OR for: Procedure(s): GLOSSECTOMY, PARTIAL, ROBOT (WRVU 11.14) PHARYNGECTOMY, LIMITED, ROBOT (WRVU 19.13) @CERVICAL LYMPHADENECTOMY (MODIFIED RADICAL NECK DISSECTION) (WRVU 23.95) LARYNGOSCOPY, WITH MICROSCOPE (WRVU 2.57) MODIFIER ROBOT,CALLII XI __ SAE Moreno 07/19/22 8:01 AM Pager: [phone] documented in this encounter Miscellaneous Notes * Care Management Discharge - Huong Root RN - 07/24/2022 3:01 PM EDT CARE MANAGEMENT FINAL DISCHARGE NOTE Chart reviewed, care reviewed with primary team and at interdisciplinary rounds. Patient is medically ready for discharge to home with family support, no other d/c needs identified at this time. Pt will d/c with suction machine. Needs for Transition of Care: Plan for discharge is: Home w/o Services Outpatient Agency/Support Group Needs: None Agency Referrals & Follow-up Care:none Transportation: family or friend will provide-via private vehicle. Functional status prior to admission: Independent Home Environment: Others in the home: spouse. Current Living Arrangements: home/apartment/condo. Accessibility Concerns:2 stairs to enter. Current Functional Ability: Independent DME used at home: none DME Needed at Discharge: none Other DME Needs: *Suction machine Patient is insured through: Primary Insurance: MVP Payor: MVP / Plan: [place] / Product Type: *No Product type* / Secondary Insurance: N/A Prescription Coverage: Yes This plan was formulated with input from patient, pt and (please identify family/friend involved if applicable) and team. All are in agreement with plan. Huong Root MSN, RN Pager #[phone] * Plan of Care - Corazon Perry RN - 07/22/2022 1:16 PM EDT 9212-1884: Patient OX4, pleasant. C/o moderate pain when swallowing, see eMAR for med aministration. R neck incision ANGELA, nathalia intact; no warmth, redness or drainage noted. R neck EULALIO drain with minimal serosanguineous output. Using suction to clear increased oral secretions. Tolerating full liquid diet but c/o throat discomfort w/ PO intake. Takes pills whole. Showered and walked around hospital today w/ 's assistance. Bradycardia at baseline per pt, HR 40-60s today. On RA. No CP or SOB reported. Plan of care reviewed with patient. * Initial Assessments - Luz Elena Waller RN - 07/21/2022 10:08 AM EDT Office of Care Management Initial Assessment Medical record reviewed. Introduced self and explained role to patient. Services accepted. Reason for Hospitalization: Neck Sx; tonsils s/p partial glossectomy, limited pharyngectomy, cervical lymphadenectomy. 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 Has not had any COVID vaccines. Present on Admission: ??? Cancer of base of tongue Hospitalizations Within the Past 30 Days: no previous admission in last 30 days Patient receiving hospital care under Inpatient status. Admission order reviewed. Primary Insurance on file: MVP Secondary Insurance on file:@ Primary care provider on file: Wilfrid Peck MD [phone] Pharmacy: [facility] - [place], [place] - [address] [facility] [id number] [id number] AT [facility] & [address] [address] Health/Prescription Coverage: Primary Insurance: MVP Payor: MVP / Plan: MVP [place] / Product Type: *No Product type* / Secondary Insurance: N/A ; Prescription Coverage: Yes Preferred Pharmacy: [facility] - [place], [place] - [address] [facility] [phone] [id number] - [place] [address] [facility] [address] [facility] [address] [facility] [address] [facility] [address] [address] [facility] [phone] Advance Care Planning: Attempt Cardiopulmonary Resuscitation - Inpatient <no information> -Advanced Directive: Yes, not on file (None on file. Spouse would be surrogate.) Who is your DPOA-HC?: Spouse (spouse will bring copy in) he said that he thought the hospital had a copy but CM did not find any on file. 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 Home Environment: Others in the home: spouse. Current Living Arrangements: home/apartment/condo. Accessibility Concerns:2 stairs to enter. Current DME: N/A [address] [place] [id number] Social & Family Supports: All names listed below confirmed with patient as current and correct Extended Emergency Contact Information Primary Emergency Contact: ANUSHALORETTA Address: [address] [place] [address] [facility] Relation: Spouse Current Care Provided by: self Transportation: no concerns Transportation Anticipated: spouse Assessment: Patient with no apparent RNCM/SW needs at this time. No housing, transportation, insurance, resources concerns identified at this time. Supports in place to achieve a safe post-hospital transition. No identified barriers to accessing necessary care and/or follow-up after discharge. Plan: Patient to d/c to home with spouse when medically ready. Registered Nurse Clinical Trials Data Coordinator / Automobile Parts Assembler will continue to follow patient???s progress and remain available if situation changes for coordination of care, psychosocial support and/or discharge planning. Office of Care Management Covering pager #[phone] for today. * Op Note - Cyrus Isaac MD - 07/19/2022 12:40 PM EDT Pre and postoperative diagnosis: T1N1 HPV positive right tongue base cancer Procedure: 1. Microlaryngoscopy with biopsy 2. Right selective neck dissection levels 2A, 2B, 3, 4 3. 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 After reviewing treatment and management options he is elected to proceed with transoralrobotic resection. Findings: Exposure of the tongue base and pharynx was excellent with the laryngoscopy and the CroweDavis retractor. The primary tumor itself was quite small and appeared localized to the right lateral tongue with gross margins appearing negative on final resection. 1 pathologically enlarged node was identified in level 2A without fixation to surrounding structures. Procedure description: After informed consent was obtained the patient was placed under general anesthesia via nasal intubation, table was turned 180 degrees, and timeout was called. We started with a microlaryngoscopy using a Arvind operating laryngoscope and a 0 and 30 degree telescope. Careful examination of the larynx, hypopharynx, and oropharynx was carried out. Mapping biopsies were submitted via frozen section of the midline base of tongue and the lateral pharyngeal wall. These were reported as negative on final frozen. Mapping tattoos were placed with methylene blue to delineate theedges of the resection. Next the laryngoscope was removed and the patient was prepped and draped for the resection portion of the procedure. A hockey-stick incision was made in the neck and injected with 1% Xylocaine with 1200,000 epinephrine. Skin incision was made and flaps were elevated superiorly and inferiorly. Levels 2 through 4 neck dissection was then performed in the usual fashion elevating the fascia off the sternocleidomastoid muscle and coming along the medial aspect of the muscle towards the posterior border. The 11th nerve, cervical rootlets, omohyoid muscle were all identified. The contents of the neck were then elevated off the floor the neck towards the carotid sheath and the internal jugular vein was skeletonized in the 360 degree fashion. The neck section contents were then removed laterally off the carotid artery and the hypoglossal nerve and the ansa hypoglossal. Specimens were submitted separately as levels 2A, 3, and 4. Level 2B was also dissected out as a separate specimen submitted.We then retracted the digastric muscle and this carried our dissection up into the parapharyngeal sp triston identifying the lingual artery which appeared to be arising off of the common trunk feeding thefacial as well as the lingual. A medium Ligaclip was placed on neck, and trunk to minimize blood flow into the pharynx. Once this was done a pledget was placed in the parapharyngeal space medial to the carotid and the neck was covered with gauze and Ioban. Next we performed the robotic portion of the procedure. The oropharynx was exposed with a Nery Arsen retractor with a 3-1/2 blade and placed in suspension with excellent exposure. Aqua Plast splint was placed on the lower dentition as well. The lips were retracted with a spandex retractor. The da Federico surgical system was then brought into the field and a 30 degree telescope, [place] grasper and Bovie cautery were used. We started laterally along the lateral pharyngeal wall just inferior to the tonsil itself where we had marked out and had demonstrated negative frozen section and then came along the lateral pharynx performing a lateral pharyngectomy and continue this into the base of tongue staying just posterior to the circumvallate papillae we then carried our resection along the circumvallate papillae posteriorly to this line and came up to the midline and then extended our resection down along the midline into the lingual tonsil and then subsequently into the vallecula. We then returned to the lateral pharynx and came along the posterior aspect of the pharyngeal wall extendingher resection down towards the hypopharynx and then coming across into the base of tongue inferiorly down into the vallecula and then coming up along the lingual aspect of the epiglottis to include this mucosa with the resection and then continued this cut with the previous midline tongue base cut that we had performed. We maintained a depth of resection into the base of tongue musculature to ensure negative margin around our tumor. The specimen was then removed and oriented on anatomically derived pathology card and the edges were all labeled. An additional margin was resected from the anterior base of tongue to ensure a clear mucosal and deep margin anteriorly. We then reviewed the PET scan once again and there was mention of increased uptake in the right tonsil and despite this being negative on biopsy just to ensure that we were not missing disease deeper in the tonsil we performed a right tonsillectomy which was also included with the main specimen. The specimen was then submitted to pathology as right tongue base resection, pharyngectomy, and tonsillectomy. The wound was copiously irrigated and bipolar cautery from the [place] was used for hemostasis. The wound was then covered with Floseal and the retractor system was then removed. The neck was then closed after irrigating and performing Valsalva demonstrated no significant bleeding. A 15 Bhutanese Jose drain was placed and secured with 3-0 silk stitch. Neck incision was closed in layers using a 3-0 Vicryl for the deep layer and nathalia for the skin. The patient was then turned back to anesthesia for extubation with no complications. Total console time was 50 minutes. Attestation: Case Date: 07/19/2022 I was present and I participated during the entire procedure (does not need to include opening and closing). CYRUS ISAAC MD 07/19/2022 documented in this encounter Plan of Treatment Not on file documented as of this encounter Procedures Procedure Name Priority Date/Time Associated Diagnosis Comments HC PHOSPHORUS, SERUM Routine 07/20/2022 12:49 AM EDT HC MAGNESIUM, SERUM Routine 07/20/2022 1 2:49 AM EDT HC VENIPUNCTURE Routine 07/20/2022 12:49 AM EDT HC VENIPUNCTURE Routine 07/19/2022 3:44 PM EDT LARYNGOSCOPY, MICROSCOPE, WITH BIOPSY Routine 07/19/2022 12:41 PM EDT Cancer of base of tongue SPECIMEN TO PATHOLOGY Routine 07/19/2022 12:34 PM EDT SPECIMEN TO PATHOLOGY Routine 07/19/2022 11:20 AM EDT SPECIMEN TO PATHOLOGY Routine 07/19/2022 11:13 AM EDT SPECIMEN TO PATHOLOGY Routine 07/19/2022 11:10 AM EDT SPECIMEN TO PATHOLOGY Routine 07/19/2022 11:10 AM EDT SPECIMEN TO PATHOLOGY STAT 07/19/2022 9:26 AM EDT SURGICAL PATHOLOGY REPORT Routine 07/19/2022 9:19 AM EDT SPECIMEN TO PATHOLOGY STAT 07/19/2022 9:19 AM EDT MODIFIER ROBOT,CALLII XI Yes 07/19/2022 8:29 AM EDT Cancer of base of tongue Laryngoscopy, Dirct, Op Scope, Biopsy ([id number]) Yes 07/19/2022 8:29 AM EDT Cancer of base of tongue Cervical Lymphadectomy Modified Radical Neck Dissection ([id number]) Yes 07/19/2022 8:29 AM EDT Cancer of base of tongue Partial Removal Of Pharynx ([id number]) Yes 07/19/2022 8:29 AM EDT Cancer of base of tongue Part Removal Tongue, <1/2 ([id number]) Yes 07/19/2022 8:29 AM EDT Cancer of base of tongue PHARYNGECTOMY, LIMITED, ROBOT Routine 07/19/2022 7:16 AM EDT Cancer of base of tongue GLOSSECTOMY, PARTIAL, ROBOT Routine 07/19/2022 7:16 AM EDT Cancer of base of tongue CERVICAL LYMPHADENECTOMY (MODIFIED RADICAL NECK DISSECTION) Routine 07/19/2022 7:16 AM EDT Cancer of base of tongue documented in this encounter Results * Phosphorus (07/20/2022 12:49 AM EDT) Phosphorus 3.0 2.5 - 4.5 mg/dL [facility] Blood 07/20/2022 12:4 9 AM EDT 07/20/2022 1:01 AM EDT Narrative Resulting Agency Comment Spec In Lab Cyrus Isaac MD CHEMISTRY ORDERABL ES [facility] [place] [address] * Magnesium (07/20/2022 12:49 AM EDT) Magnesium 0.80 0.69 - 1.07 mmol/L [facility] Blood 07/20/2022 12:4 9 AM EDT 07/20/2022 1:01 AM EDT Narrative Resulting Agency Comment Spec In Lab Cyrus Isaac MD CHEMISTRY ORDERABL ES Performing Organization Address City/[facility]/ZIP Co de Phone Number [facility] [place] [address] * Basic Metabolic Panel (non-fasting) (07/20/2022 12:49 AM EDT) Glucose 165 65 - 199 mg/dL [facility] Comment:Diabetes: >=200 mg/d L plus symptoms Blood Urea Nitrogen 18 10 - 20 mg/dL [facility] Creatinine 0.92 0.80 - 1.50 mg/dL [facility] Sodium 138 135 - 145 mmol/L [facility] Potassium 4.4 3.5 - 5.0 mmol/L [facility] Comment: Please note: ??Patients with WBC >100,000 may have falsely elevated Potassium levels. ??For accurate Potassium quantification in these patients send serum separator tube (gold top) for subsequent determinations. ??Contact the Clinical Chemistry Laboratory if there are any questions. Chloride 103 98 - 107 mmol/L [facility] Carbon Dioxide 24 22 - 31 mmol/L [facility] Anion Gap 11 5 - 15 mmol/L [facility] Calcium 9.0 8.5 - 10.5 mg/dL [facility] Est Glomerular Filtration Rate 94 >=60 mL/min/1. 73 m?? [facility] Comment: This patient's estimated GFR was [...] and symptoms in addition to eGFR. Blood 07/20/2022 12:4 9 AM EDT 07/20/2022 1:01 AM EDT Narrative Resulting Agency Comment Spec In Lab Cyrus Isaac MD CHEMISTRY ORDERABL ES [facility] [place] [address] * Basic Metabolic Panel (non-fasting) (07/19/2022 3:44 PM EDT) Glucose 158 65 - 199 mg/dL [facility] Comment:Diabetes: >=200 mg/d L plus symptoms Blood Urea Nitrogen 18 10 - 20 mg/dL [facility] Creatinine 0.97 0.80 - 1.50 mg/dL [facility] Sodium 139 135 - 145 mmol/L [facility] Potassium 4.5 3.5 - 5.0 mmol/L [facility] Comment: Please note: ??Patients with WBC >100,000 may have falsely elevated Potassium levels. ??For accurate Potassium quantification in these patients send serum separator tube (gold top) for subsequent determinations. ??Contact the Clinical Chemistry Laboratory if there are any questions. Chloride 104 98 - 107 mmol/L [facility] Carbon Dioxide 23 22 - 31 mmol/L [facility] Anion Gap 12 5 - 15 mmol/L [facility] Calcium 9.3 8.5 - 10.5 mg/dL [facility] Est Glomerular Filtration Rate 88 >=60 mL/min/1. 73 m?? [facility] Comment: This patient's estimated GFR was [...] and symptoms in addition to eGFR. Blood 07/19/2022 3:44 PM EDT 07/19/2022 3:54 PM EDT Narrative Resulting Agency Comment Spec In Lab Cyrus Isaac MD CHEMISTRY ORDERABL ES Performing Organization Address [facility] [place] [address] * Specimen to Pathology (07/19/2022 12:34 PM EDT) AP Specimen 07/19/2022 12:3 4 PM EDT 07/19/2022 12:34 PM EDT Narrative [facility] - 07/19/2022 12:34 PM EDT Specimen requisition ordered. ??Separate Pathology report to follow Cyrus Isaac MD PATHOLOGY/CYTOLOGY ORDERABLES Performing Organization Address [facility] [place] [address] * Specimen to Pathology (07/19/2022 11:20 AM EDT) AP Specimen 07/19/2022 11:2 0 AM EDT 07/19/2022 11:20 AM EDT Narrative [facility] - 07/19/2022 11:20 AM EDT Specimen requisition ordered. ??Separate Pathology report to follow Cyrus Isaac MD PATHOLOGY/CYTOLOGY ORDERABLES Performing Organization Address [facility] Co de Phone Number [facility] [place] [address] * Specimen to Pathology (07/19/2022 11:13 AM EDT) AP Specimen 07/19/2022 11:1 3 AM EDT 07/19/2022 11:13 AM EDT Narrative [facility] - 07/19/2022 11:13 AM EDT Specimen requisition ordered. ??Separate Pathology report to follow Cyrus Isaac MD PATHOLOGY/CYTOLOGY ORDERABLES Performing Organization Address [facility] [place] [address] * Specimen to Pathology (07/19/2022 11:10 AM EDT) AP Specimen 07/19/2022 11:1 0 AM EDT 07/19/2022 11:10 AM EDT [facility] - 07/19/2022 11:10 AM EDT Specimen requisition ordered. ??Separate Pathology report to follow Cyrus Isaac MD PATHOLOGY/CYTOLOGY ORDERABLES Performing Organization Address [facility] [place] [address] * Specimen to Pathology (07/19/2022 11:10 AM EDT) AP Specimen 07/19/2022 11:1 0 AM EDT 07/19/2022 11:10 AM EDT [facility] - 07/19/2022 11:10 AM EDT Specimen requisition ordered. ??Separate Pathology report to follow Cyrus Isaac MD PATHOLOGY/CYTOLOGY ORDERABLES Performing Organization Address [facility] [place] [address] * Specimen to Pathology (07/19/2022 9:26 AM EDT) AP Specimen 07/19/2022 9:26 AM EDT 07/19/2022 9:26 AM EDT Narrative [facility] - 07/19/2022 9:26 AM EDT Specimen requisition ordered. ??Separate Pathology report to follow Cyrus Isaac MD PATHOLOGY/CYTOLOGY ORDERABLES [facility] [place] [address] * Surgical Pathology Report (07/19/2022 9:19 AM EDT) Final Diagnosis [id number] ? Location: [facility]; [facility]; A The signing pathologist has (i) examined the relevant preparation(s) for the specimen(s) and (ii) rendered or confirmed the diagnosis(es). . ?Surgical Pathology DIAGNOSIS A - Left lingual tonsil, biopsy ?? for frozen section: - Squamous mucosa with tonsillar tissue. - No evidence of malignancy. B - Right lateral pharynx, biopsy ?? for frozen section: - Squamous mucosa with tonsillar tissue. - No evidence of malignancy. 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 - Margins are uninvolved. - No tumor is seen the ?? right palatine tonsil . D - ??Right level 2A neck dissection, excision: - Metastatic carcinoma to one cystic node (3.4 cm greatest ?dimension ) with perinodal fibrosis but no overt extranodal extension. - Seven ??additional lymph nodes, negative for malignancy (1/8). E - ??Right level 3 neck dissection, excision: - Five lymph nodes, negative for malignancy (0/5). F - ??Right level 4 neck dissection, excision: - Two lymph nodes, negative for malignancy (0/2). G - ??Right level 2B neck dissection, excision: - One lymph node, negative for malignancy (0/1). Electronically signed by: ?Radha Patiño DO Verified: ??07/31/2022 12:43 ??Pathologist Performed at: ??-[facility] [place] Dept. of Pathology, [facility] [place], [place] SYNOPTIC Specimen ? Procedure: ??Right tongue base, tonsillectomy, and phayrengectomy Tumor ? Tumor Focality: ??Unifocal ? Tumor Site: ??Oropharynx ?Tumor Subsite: ??Base of tongue, including lingual tonsil ? Tumor Laterality: ??Right ? Tumor Size: ??0.4 Centimeters (cm) ? 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 Histologic Grade: ??G1, well differentiated ? Lymphovascular Invasion: ??Not identified ? Perineural Invasion: ??Not identified Margins ? Margin Status for Invasive Tumor: ??All margins negative for invasive tumor ?Distance from Invasive Tumor to Closest Margin: ??3.2 mm ?Closest Margin(s) to Invasive Tumor: ??right lateral pharynx Regional Lymph Nodes ? Regional Lymph Node Status: ??Tumor present in regional lymph node(s) ?Number of Lymph Nodes with Tumor: ??1 . SYNOPTIC ?Laterality of Lymph Node(s) with Tumor: ??Ipsilateral (including midline) ?Size of Largest Zaira Metastatic Deposit: ??3.4 cm ? Number of Lymph Nodes Examined: ??16 Pathologic Stage Classification (pTNM, AJCC 8th Edition) ? pT Category: ??pT1 ? pN Category: ??pN1 Best Tumor Blocks for Future Studies ? Tumor Block(s): ??C21,C35 ? [facility] 2021 Q1 Release ADDITIONAL STUDIES Immunohistochemistry Studies: Formalin-fixed, paraffin-embedded tissue sections are studied using the polymer technique with appropriate positive and negative controls. ?These IHC studies provide the pathologist with adjunctive diagnostic information. Antibody specificity has been verified by testing antibodies on a series of in-house tissues with known immunohistochemical performance characteristics. The clinical interpretation of any antibody positive staining or its absence is evaluated within the context of clinical presentation, morphology, histopathological criteria and other diagnostic tests. Block ? Antibody ?Result (Positive/Negative) C35 ?P16 ?Positive in lesional cells. SPECIMEN(S) SUBMITTED A - Left lingual tonsil, biopsy ?? for frozen section: B - Right lateral pharynx, biopsy ?? for frozen section: C - Right tongue base, tonsillectomy and pharyngectomy: D - ??Right level 2A neck dissection, excision: E - ??Right level 3 neck dissection, excision: F - ??Right level 4 neck dissection, excision: G - ??Right level 2B neck dissection, excision: CLINICAL INFORMATION Oropharyngeal cancer SPECIMEN PROCESSING A - Labeled/Fixative: Left lingual tonsil, fresh for frozen section. Quantity/Size: ??Two, 0.4 and 0.5 cm Tissue Description: Melgar-pink soft tissue Sections/Processing: The specimen is totally submitted for frozen section in 1 cassettes as follows: ?A1: ??FS1 remnant: Left lingual tonsil B - Labeled/Fixative: Right lateral pharynx, fresh for frozen section. Quantity/Size: ??Two, 0.3 and 0.5 cm Tissue Description: Melgar-pink soft tissue Sections/Processing: The specimen is totally submitted for frozen section in 1 cassette as follows: ?B1: ??FS2 remnant: Right lateral pharynx C - Labeled/Fixative: Right tongue base resection, tonsillectomy and pharyngectomy, fresh. Quantity/Size: Single, 4.5 x 6.5 x 0.7 cm. . SPECIMEN PROCESSING Tissue Description: Intact, right, composite resection consisting of oropharynx, sublingual gland, tongue. Orientation: ??The specimen is received oriented by the surgeon with sutures as follows: Anterior tongue base margin, right lateral tongue, right lateral pharynx, right tonsil, lingual surface of epiglottis, midline lingual tonsil. LESION (likely describing tonsil; will need to correlate histologically as gross lesion not appreciated): ? 1.6 cm Anterior-Posterior. ? 1.5 cm Medial - Lateral. ? 0.8 cm Superior - Inferior. ? Lesion Configuration: Polypoid, exophytic ? Location: Right tonsil. ? Color: Melgar-brown. ? Consistency: Firm, rubbery ? Involving adjacent structures: Right tonsil. ? Focality: Unifocal. ? Nearest margin: 1.5 cm to Right lateral pharynx margin. ? Other margins: 4.4 cm to Anterior tongue base margin. ? Other margins: 4.0 cm to Right lateral tongue margin. ? Other margins: 1.6 cm to Lingual surface of epiglottis margin. ? Other margins: 3.7 cm to Midline lingual tonsil margin. Sections/Processing: Photographs are taken Inferior/deep inked black. Right lateral tongue- Blue, Right lateral pharynx - [place], Right tonsil Right lateral side - Blue, Right tonsil posterior - green, Right tonsil median side - orange, Lingual surface of epiglottis - Blue, Anterior tongue base - yellow, Midline lingual tonsil - Red. Entirely submitted in 37 cassettes as follows: ?C1-C4: ??Lingual surface of epiglottis margin (blue), perpendicular sections, ? medial to lateral. ?C5-C10: ??Midline lingual tonsil margin (red), perpendicular sections, posterior to ? anterior ?C11-C17: ??Anterior tongue base margin (yellow), perpendicular sections, medial to ? lateral (including right lateral tongue margin (blue) ?C18-C23: ??Right lateral pharynx margin (orange), perpendicular sections, posterior ? to anterior. Anterior tip includes right lateral tongue margin (blue). ?C24-C25: ??Right tonsil posterior margin (green), perpendicular sections, medial to ? lateral ?C26-C28: ??Right tonsil, serially sectioned from posterior (green ink reapplied) to ? anterior). This part of the specimen became disconnected from the main specimen, ? prior to inking. ?C29-C37: ??Remainder of specimen, serially sectioned from posterior (reapplied blue ? after lingual) to anterior (reapplied yellow), including midline (red) and right ? lateral pharynx (orange). D - Labeled/Fixative: Right level 2A neck dissection, fresh. Quantity/Size: Four, 4.9 x 3.2 x 2.4 cm. Tissue Description: Adipose tissue with multiple lymph nodes, up to 3.4 x 2.4 x 2.1 cm. Sections/Processing: Entirely submitted in 13 cassettes as follows: ?D1-D7: ??One lymph node serially sectioned (filled with gelatinous material and ? also with yellow residue). ?D8: ??Three lymph nodes ?D9-D10: ??One lymph node serially sectioned ?D11: ??Two lymph nodes ?D12: ??One lymph node bisected ?D13: ??One lymph node bisected E - Labeled/Fixative: Right level 3 neck dissection, fresh. Quantity/Size: Single, 5.5 x 4.1 x 1.5 cm. Tissue Description: Adipose tissue with six lymph nodes, up to 0.3 x 1.5 x 0.7 cm. Sections/Processing: Entirely submitted in 4 cassettes as follows: ?E1: ??One lymph node serially sectioned . SPECIMEN PROCESSING ?E2: ??Three lymph nodes ?E3: ??One lymph node bisected ?E4: ??One lymph node bisected F - Labeled/Fixative: Right level 4 neck dissection, fresh. Quantity/Size: Two, 3.8 x 3.2 x 1.0 cm. Tissue Description: Adipose tissue with three lymph nodes, up to 1.0 x 1.0 x 0.5 cm. Sections/Processing: Entirely submitted in 3 cassettes as follows: ?F1: ??One lymph node bisected ?F2: ??One lymph node bisected ?F3: ??One lymph node serially sectioned G - Labeled/Fixative: Right level 2B neck dissection, fresh. Quantity/Size: Single, 2.8 x 1.7 x 1.0 cm. Tissue Description: Adipose tissue with one lymph node, up to 0.1 x 1.5 x 0.6 cm. Sections/Processing: Entirely submitted in 2 cassettes as follows: ?G1-G2: ??One lymph node serially sectioned ??vmj ?Frozen Section FROZEN SECTION DIAGNOSIS AFS1 - Left lingual tonsil, ?? for frozen section: - ??There is no evidence of malignancy. 07/19/22 09:41 /jrp BFS1 - Right lateral pharynx, ?? for frozen section: - ??There is no evidence of malignancy. 07/19/22 09:55 /jrp Electronically signed by: ?MD Cale, Fernando Duran Verified: ??07/19/2022 9:59 ?? Pathologist Performed at: ??-[facility] [place] Dept. of Pathology, [place], [place] This intraoperative consultation should be interpreted as a preliminary diagnosis pending review of the entire specimen and special studies, if any. A final Surgical Pathology report will follow this preliminary Frozen Section report(s). 07/31/2022 12:43 PM EDT [facility] LYMPH NODE SPECIMEN / Unknown 07/19/2022 9:19 AM EDT 07/19/2022 9:19 AM EDT Frozen Specimen 07/19/2022 9 :19 AM EDT 07/19/2022 9:19 AM EDT MOUTH REGION STRUCTURE / Unknown 07/19/2022 9:19 AM EDT 07/19/2022 9:19 AM EDT LYMPH NODE SPECIMEN / Unknown 07/19/2022 9:19 AM EDT 07/19/2022 9:19 AM EDT LYMPH NODE SPECIMEN / Unknown 07/19/2022 9:19 AM EDT 07/19/2022 9:19 AM EDT LYMPH NODE SPECIMEN / Unknown 07/19/2022 9:19 AM EDT 07/19/2022 9:19 AM EDT LYMPH NODE SPECIMEN / Unknown 07/19/2022 9:19 AM EDT 07/19/2022 9:19 AM EDT Cyrus Isaac MD PATHOLOGY/CYTOLOGY ORDERABLES Performing Organization Address City/[facility]/ZIP Co de Phone Number [facility] [place] [address] * Specimen to Pathology (07/19/2022 9:19 AM EDT) AP Specimen 07/19/2022 9:19 AM EDT 07/19/2022 9:19 AM EDT Narrative [facility] - 07/19/2022 9:19 AM EDT Specimen requisition ordered. ??Separate Pathology report to follow Cyrus Isaac MD PATHOLOGY/CYTOLOGY ORDERABLES [facility] [place] [address] documented in this encounter Visit Diagnoses Diagnosis Cancer of base of tongue Malignant neoplasm of base of tongue Tonsil cancer Malignant neoplasm of tonsil Lymphadenopathy of head and neck Cancer of base of tongue Malignant neoplasm of base of tongue documented in this encounter Admitting Diagnoses Diagnosis Cancer of base of tongue Malignant neoplasm of base of tongue documented in this encounter Administered Medications Inactive Administered Medications - up to 3 most recent administrations Medication Order MAR Action Action Date Dose Rate Site acetaminophen (Ofirmev) (1000 mg/100 mL) infusion 1,000 mg 1,000 mg, Intravenous, at 400 mL/hr, Administer over 15 Minutes, EVERY 8 HOURS SCHEDULED, 3 doses, First dose on Fri07/19/22 at 1400, Last dose on Fri07/20/22 at 0600, Maximum dose of acetaminophen is 4000 mg from all sources in 24 hours. When ordered for pain, acetaminophen should be given even when other ordered pain medications are indicated. , Routine, Is ketorolac (Toradol) IV contraindicated? No, Can this patient tolerate oral medications or suppositories? No / ENT Surgery Given 07/20/2022 5:09 AM EDT 1,000 mg 400 mL/hr Given 07/19/2022 10:19 PM EDT 1,000 mg 400 mL/hr Given 07/19/2022 1:35 PM EDT 1,000 mg 400 mL/hr acetaminophen (Ofirmev) (1000 mg/100 mL) infusion 1,000 mg 1,000 mg, Intravenous, at 400 mL/hr, Administer over 15 Minutes, EVERY 8 HOURS SCHEDULED, 3 doses, First dose (after last reorder) on 07/20/22 at 1300, Last dose on 07/21/22 at 0500, Maximum dose of acetaminophen is 4000 mg from all sources in 24 hours. When ordered for pain, acetaminophen should be given even when other ordered pain medications are indicated. , Routine, Is ketorolac (Toradol) IV contraindicated? No, Can this patient tolerate oral medications or suppositories? No / ENT Surgery Given 07/21/2022 5:24 AM EDT 1,000 mg 400 mL/hr Given 07/20/2022 8:05 PM EDT 1,000 mg 400 mL/hr Given 07/20/2022 2:33 PM EDT 1,000 mg 400 mL/hr acetaminophen (Tylenol) (32.02 mg/mL) oral liquid 650 mg 650 mg, Oral, EVERY 6 HOURS SCHEDULED, First dose on 07/21/22 at 0800, Until Discontinued, Maximum dose of acetaminophen is 4000 mg from all sources in 24 hours. When ordered for pain, acetaminophen should be given even when other ordered pain medications are indicated. , Routine Given 07/22/2022 11:01 AM EDT 650 mg Given 07/22/2022 5:34 AM EDT 650 mg Given 07/22/2022 12:01 AM EDT 650 mg acetaminophen (Tylenol) tablet 650 mg 650 mg, Oral, EVERY 6 HOURS SCHEDULED, First dose on 07/22/22 at 1230, Until Discontinued, Maximum dose of acetaminophen is 4000 mg from all sources in 24 hours. When ordered for pain, acetaminophen should be given even when other ordered pain medications are indicated. We do not order the liquid tylenol or ibuprofen because it has sorbitol and can contribute to diarrhea., Routine Given 07/24/2022 5:36 AM EDT 650 mg Given 07/24/2022 12:10 AM EDT 650 mg Given 07/23/2022 5:36 PM EDT 650 mg acetaminophen (Tylenol) tablet 975 mg 975 mg, Oral, EVERY 6 HOURS SCHEDULED, First dose (after last modification) on Fri07/24/22 at 1200, Until Discontinued, Maximum dose of acetaminophen is 4000 mg from all sources in 24 hours. When ordered for pain, acetaminophen should be given even when other ordered pain medications are indicated. We do not order the liquid tylenol or ibuprofen because it has sorbitol and can contribute to diarrhea., Routine Given 07/24/2022 12:46 PM EDT 975 mg ampicillin-sulbactam (Unasyn) 3 g vial attach to sodium chloride 0.9% 100 mL Mini-Bag Plus 3 g, Intravenous, EVERY 8 HOURS, First dose (after last reorder) on Fri07/19/22 at 1815, Until Discontinued, Warning Vesicant/Irritant Medication , Indication for (Active or Suspected): Prophylaxis New Bag 07/24/2022 9:44 AM EDT 3 g New Bag 07/24/2022 2:10 AM EDT 3 g New Bag 07/23/2022 5:36 PM EDT 3 g chlorhexidine (Peridex) 0.12 % oral solution 15 mL 15 mL, Oral, 3 TIMES DAILY, First dose on Fri07/19/22 at 1615, Until Discontinued, Okay to swish and spit gently., Routine Given 07/24/2022 8:08 AM EDT 15 mLs Given 07/23/2022 8:18 PM EDT 15 mLs Given 07/23/2022 3:50 PM EDT 15 mLs dexAMETHasone (PF) (Decadron) (10 mg/mL) injection 8 mg 8 mg, Intravenous, EVERY 8 HOURS SCHEDULED, 3 doses, First dose on Fri07/19/22 at 1615, Last dose on Fri07/20/22 at 0600 Given 07/20/2022 5:10 AM EDT 8 mg Given 07/19/2022 10:19 PM EDT 8 mg Given 07/19/2022 5:34 PM EDT 8 mg docusate sodium (Colace) (10 mg/mL) oral liquid 100 mg 100 mg, Oral, 2 TIMES DAILY, First dose on Fri07/20/22 at 0900, Until Discontinued, Routine Given 07/22/2022 9:34 AM EDT 100 mg Given 07/21/2022 8:40 PM EDT 100 mg Given 07/21/2022 8:18 AM EDT 100 mg enoxaparin (Lovenox) (40 mg/0.4 mL) subcutaneous injection 40 mg 40 mg, Subcutaneous, NIGHTLY, First dose on Fri07/19/22 at 2100, Until Discontinued, Routine Given 07/20/2022 8:04 PM EDT 40 mg Given 07/19/2022 8:26 PM EDT 40 mg hydroCHLOROthiazide (Hydrodiuril) tablet 12.5 mg 12.5 mg, Oral, DAILY, First dose on Fri07/20/22 at 0900, Until Discontinued, Routine Given 07/24/2022 8:08 AM EDT 12.5 mg Given 07/23/2022 8:09 AM EDT 12.5 mg Given 07/22/2022 9:34 AM EDT 12.5 mg HYDROmorphone (Dilaudid) (0.5 mg/0.5 mL) injection syringe 0.2 mg 0.2 mg, Intravenous, EVERY 4 HOURS SCHEDULED, First dose on Fri07/19/22 at 1615, Until Discontinued, Please hold for RR <6, O2 is <80, or patient appears sedated (concern for opiate overdose)., Routine Given 07/20/2022 9:17 AM EDT 0.2 mg Given 07/20/2022 12:10 AM EDT 0.2 mg Given 07/19/2022 7:32 PM EDT 0.2 mg HYDROmorphone (Dilaudid) (0.5 mg/0.5 mL) injection syringe 0.2 mg 0.2 mg, Intravenous, EVERY 2 HOURS PRN, Starting on Fri07/19/22 at 1522, Until Fri07/24/22 at 0637, Pain, For breakthrough pain, Routine Given 07/24/2022 4:34 AM EDT 0.2 mg Given 07/24/2022 2:10 AM EDT 0.2 mg Given 07/23/2022 11:19 PM EDT 0.2 mg HYDROmorphone (Dilaudid) (1 mg/ml) oral liquid 2 mg 2 mg, Oral, EVERY 3 HOURS PRN, Starting on Fri07/24/22 at 1319, Until Fri07/24/22 at 1825, Pain, Routine Given 07/24/2022 1:29 PM EDT 2 mg ibuprofen (Advil) tablet 600 mg 600 mg, Oral, EVERY 6 HOURS, First dose on Fri07/22/22 at 1230, Until Discontinued, Administer orally with milk or food to minimize GI irritation. Maximum dose of 3,200 mg from all sources in 24 hours. We do not order the liquid tylenol or ibuprofen because it has sorbitol and can contribute to diarrhea., Routine Given 07/24/2022 12:46 PM EDT 600 mg Given 07/24/2022 5:36 AM EDT 600 mg Given 07/24/2022 12:11 AM EDT 600 mg ibuprofen (Advil;Motrin) (20 mg/mL) oral liquid 600 mg 600 mg, Oral, EVERY 6 HOURS SCHEDULED, First dose on Fri07/21/22 at 0800, Until Discontinued, Administer orally with milk or food to minimize GI irritation Should be given concomitantly if other Analgesics are ordered., Routine Given 07/22/2022 11:01 AM EDT 600 mg Given 07/22/2022 5:34 AM EDT 600 mg Given 07/22/2022 12:01 AM EDT 600 mg ketorolac (Toradol) (30 mg/mL) injection 15 mg 15 mg, Intravenous, EVERY 6 HOURS, 7 doses, First dose on Fri07/19/22 at 1430, Last dose on Fri07/21/22 at 0230, Routine Given 07/21/2022 3:06 AM EDT 15 mg Given 07/20/2022 8:05 PM EDT 15 mg Given 07/20/2022 2:33 PM EDT 15 mg lactated ringers infusion 1,000 mL, at 100 mL/hr, Intravenous, CONTINUOUS, Starting on Fri07/19/22 at 0815, Until Fri07/19/22 at 1436, Day of Surgery (Day of Procedure) New Bag 07/19/2022 8:09 AM EDT 1,000 mLs 100 mL/hr lactated ringers infusion 1,000 mL, at 100 mL/hr, Intravenous, CONTINUOUS, Starting on Fri07/19/22 at 1330, Until Fri07/19/22 at 1436, PACU Recovery New Bag 07/19/2022 1:41 PM EDT 1,000 mLs 100 mL/hr lisinopriL (Zestril) tablet 10 mg 10 mg, Oral, DAILY, First dose on 07/20/22 at 0900, Until Discontinued, Routine Given 07/24/2022 8:08 AM EDT 10 mg Given 07/23/2022 8:09 AM EDT 10 mg Given 07/22/2022 9:34 AM EDT 10 mg melatonin tablet 3 mg 3 mg, Oral, NIGHTLY PRN, Starting on Fri07/20/22 at 2053, Until Fri07/23/22 at 1757, for sleep, May give additional 3mg if patient requests, Routine Given 07/22/2022 8:30 PM EDT 3 mg Given 07/21/2022 8:40 PM EDT 3 mg Given 07/20/2022 9:15 PM EDT 3 mg melatonin tablet 6 mg 6 mg, Oral, NIGHTLY PRN, Starting on Fri07/23/22 at 2100, Until Fri07/24/22 at 1825, for sleep, May give additional 3mg if patient requests, Routine Given 07/23/2022 8:18 PM EDT 6 mg oxyCODONE (Roxicodone) (1 mg/mL) oral liquid 5-10 mg 5-10 mg, Oral, EVERY 3 HOURS PRN, Starting on 07/21/22 at 1053, Until Fri07/22/22 at 1141, Pain, Give 5 mg for pain 1-5; GIve 10 mg for pain 6-10; for breakthrough pain, Routine Given 07/22/2022 11:01 AM EDT 5 mg Given 07/21/2022 11:09 PM EDT 5 mg Given 07/21/2022 5:10 PM EDT 5 mg oxyCODONE (Roxicodone) tablet 10 mg 10 mg, Oral, EVERY 3 HOURS PRN, Starting on Fri07/23/22 at 1740, Until Fri07/24/22 at 0918, Pain, Routine Given 07/24/2022 8:08 AM EDT 10 mg oxyCODONE (Roxicodone) tablet 5-10 mg 5-10 mg, Oral, EVERY 3 HOURS PRN, Starting on Fri07/22/22 at 1141, Until Fri07/23/22 at 1740, Pain, Give 5 mg for pain 1-5; Give 10 mg for pain 6-10; breakthrough pain, Routine Given 07/23/2022 3:53 PM EDT 5 mg Given 07/23/2022 11:54 AM EDT 5 mg Given 07/23/2022 8:09 AM EDT 10 mg pantothenic Ac-Min Oil-Pet,Hyd (Aquaphor) 41 % ointment 1 each 1 each, Topical (Top), 2 TIMES DAILY, First dose on Fri07/19/22 at 2100, Until Discontinued, Clean incision with sterile saline or half strength hydrogen peroxide and apply aquaphor incision twice daily. Given 07/24/2022 8:18 AM EDT 1 each Given 07/23/2022 8:19 PM EDT 1 each Given 07/22/2022 8:31 PM EDT 1 each senna-docusate (Pericolace) 8.6-50 mg per tablet 1 tablet 1 tablet, Oral, 2 TIMES DAILY, First dose on Fri07/23/22 at 0900, Until Discontinued, Routine Given 07/24/2022 8:08 AM EDT 1 tablet sennosides (Senokot) (1.76 mg/mL) oral liquid 17.6 mg 17.6 mg, Oral, 2 TIMES DAILY, First dose on Fri07/20/22 at 0900, Until Discontinued, Routine Given 07/22/2022 9:34 AM EDT 17.6 mg Given 07/21/2022 8:40 PM EDT 17.6 mg Given 07/21/2022 8:18 AM EDT 17.6 mg documented in this encounter Active and Recently Administered Medications Times are shown in EDT. Scheduled Medication Order 07/22/2022 07/23/2022 07/24/2022 acetaminophen (Tylenol) (32.02 mg/mL) oral liquid 650 mg (CANCELED) 650 mg, Oral, EVERY 6 HOURS SCHEDULED, First dose on Fri07/21/22 at 0800, Until Discontinued, Maximum dose of acetaminophen is 4000 mg from all sources in 24 hours. When ordered for pain, acetaminophen should be given even when other ordered pain medications are indicated. , Routine 0001 (Given - Provider: Kamar Martínez RN)0534 (Given - Provider: Kamar Martínez RN)1101 (Given - Provider: Ester Ellsworth RN) acetaminophen (Tylenol) tablet 650 mg (CANCELED) 650 mg, Oral, EVERY 6 HOURS SCHEDULED, First dose on Fri07/22/22 at 1230, Until Discontinued, Maximum dose of acetaminophen is 4000 mg from all sources in 24 hours. When ordered for pain, acetaminophen should be given even when other ordered pain medications are indicated. We do not order the liquid tylenol or ibuprofen because it has sorbitol and can contribute to diarrhea., Routine 1230 (Not Given - Provider: Corazon Perry RN - Reason: See comment - Comment: gave liquid solution at 1101)1709 (Given - Provider: Ester Ellsworth RN)2342 (Given - Provider: Kamar Martínez RN) 0506 (Given - Provider: Kamar Martínez RN)1154 (Given - Provider: Ester Ellsworth RN)1736 (Given - Provider: Ester Ellsworth RN) 0010 (Given - Provider: Kamar Martínez RN)0536 (Given - Provider: Kamar Martínez RN) acetaminophen (Tylenol) tablet 975 mg 975 mg, Oral, EVERY 6 HOURS SCHEDULED, First dose (after last modification) on Fri07/24/22 at 1200, Until Discontinued, Maximum dose of acetaminophen is 4000 mg from all sources in 24 hours. When ordered for pain, acetaminophen should be given even when other ordered pain medications are indicated. We do not order the liquid tylenol or ibuprofen because it has sorbitol and can contribute to diarrhea., Routine 1246 (Given - Provider: Jennifer Lion RN) ampicillin-sulbactam (Unasyn) 3 g vial attach to sodium chloride 0.9% 100 mL Mini-Bag Plus 3 g, Intravenous, EVERY 8 HOURS, First dose (after last reorder) on Fri07/19/22 at 1815, Until Discontinued, Warning Vesicant/Irritant Medication , Indication for (Active or Suspected): Prophylaxis 0153 (New Bag - Provider: Kamar Martínez RN)0934 (New Bag - Provider: Corazon Perry RN)1715 (New Bag - Provider: Ester Ellsworth RN) 0214 (New Bag - Provider: Kamar Martínez RN)0923 (New Bag - Provider: Ester Ellsworth RN)1736 (New Bag - Provider: Ester Ellsworth RN) 0210 (New Bag - Provider: Kamar Martínez RN)0944 (New Bag - Provider: Macario Torres RN)1825 (Due: Stopped) chlorhexidine (Peridex) 0.12 % oral solution 15 mL 15 mL, Oral, 3 TIMES DAILY, First dose on Fri07/19/22 at 1615, Until Discontinued, Okay to swish and spit gently., Routine 0934 (Given - Provider: Corazon Perry RN)1425 (Given - Provider: Corazon Perry RN)2030 (Given - Provider: Kamar Martínez RN) 0811 (Given - Provider: Ester Ellsworth RN)1550 (Given - Provider: Ester Ellsworth RN)2018 (Given - Provider: Kamar Martínez RN) 0808 (Given - Provider: Liam Diego RN)1500 (Due) docusate sodium (Colace) (10 mg/mL) oral liquid 100 mg (CANCELED) 100 mg, Oral, 2 TIMES DAILY, First dose on 07/20/22 at 0900, Until Discontinued, Routine 0934 (Given - Provider: Corazon Perry RN) hydroCHLOROthiazide (Hydrodiuril) tablet 12.5 mg 12.5 mg, Oral, DAILY, First dose on 07/20/22 at 0900, Until Discontinued, Routine 0934 (Given - Provider: Corazon Perry RN) 0809 (Given - Provider: Ester Ellsworth RN) 0808 (Given - Provider: Liam Diego RN) ibuprofen (Advil) tablet 600 mg 600 mg, Oral, EVERY 6 HOURS, First dose on 07/22/22 at 1230, Until Discontinued, Administer orally with milk or food to minimize GI irritation. Maximum dose of 3,200 mg from all sources in 24 hours. We do not order the liquid tylenol or ibuprofen because it has sorbitol and can contribute to diarrhea., Routine 1230 (Not Given - Provider: Corazon Perry RN - Reason: See comment - Comment: gave liquid solution at 1101)1830 (Given - Provider: Ester Ellsworth RN)2342 (Given - Provider: Kamar Martínez RN) 0506 (Given - Provider: Kamar Martínez RN)0630 (Given - Provider: Kamar Martínez RN)1154 (Given - Provider: Ester Ellsworth RN)1736 (Given - Provider: Ester Ellsworth RN) 0011 (Given - Provider: Kamar Martínez RN)0536 (Given - Provider: Kamar Martínez RN)1246 (Given - Provider: Jennifer Lion RN) ibuprofen (Advil;Motrin) (20 mg/mL) oral liquid 600 mg (CANCELED) 600 mg, Oral, EVERY 6 HOURS SCHEDULED, First dose on Fri07/21/22 at 0800, Until Discontinued, Administer orally with milk or food to minimize GI irritation Should be given concomitantly if other Analgesics are ordered., Routine 0001 (Given - Provider: Kamar Martínez RN)0534 (Given - Provider: Kamar Martínez RN)1101 (Given - Provider: Ester Ellsworth RN) lisinopriL (Zestril) tablet 10 mg 10 mg, Oral, DAILY, First dose on Fri07/20/22 at 0900, Until Discontinued, Routine 0934 (Given - Provider: Corazon Perry RN) 0809 (Given - Provider: Ester Ellsworth RN) 0808 (Given - Provider: Liam Diego, EUGENIE) pantothenic Ac-Min Oil-Pet,Hyd (Aquaphor) 41 % ointment 1 each 1 each, Topical (Top), 2 TIMES DAILY, First dose on Fri07/19/22 at 2100, Until Discontinued, Clean incision with sterile saline or half strength hydrogen peroxide and apply aquaphor incision twice daily. 0936 (Given - Provider: Corazon Perry RN)203 (Given - Provider: Kamar Martínez RN) 0900 (Not Given - Provider: Ester Ellsworth RN - Reason: Patient/family refused)2019 (Given - Provider: Kamar Martínez RN) 0818 (Given - Provider: Liam Diego RN) senna-docusate (Pericolace) 8.6-50 mg per tablet 1 tablet 1 tablet, Oral, 2 TIMES DAILY, First dose on Fri07/23/22 at 0900, Until Discontinued, Routine 0809 (Not Given - Provider: Ester Ellsworth RN - Reason: Patient/family refused)2100 (Discarded - Provider: Kamar Martínez RN - Comment: Patient refused it claiming that he has a bowel movement regularly.) 0808 (Given - Provider: Liam Diego, EUGENIE) sennosides (Senokot) (1.76 mg/mL) oral liquid 17.6 mg (CANCELED) 17.6 mg, Oral, 2 TIMES DAILY, First dose on Fri07/20/22 at 0900, Until Discontinued, Routine 0934 (Given - Provider: Corazon Perry, EUGENIE) PRN Medication Order 07/22/2022 07/23/2022 07/24/2022 HYDROmorphone (Dilaudid) (0.5 mg/0.5 mL) injection syringe 0.2 mg (CANCELED) 0.2 mg, Intravenous, EVERY 2 HOURS PRN, Starting on Fri07/19/22 at 1522, Until Fri07/24/22 at 0637, Pain, For breakthrough pain, Routine 1811 (Given - Provider: Ester Ellsworth RN - Comment: Ana TRAORE, witness)2018 (Given - Provider: Kamar Martínez RN)2319 (Given - Provider: Kamar Martínez RN) 0210 (Given - Provider: Kamar Martínez RN)0434 (Given - Provider: Kamar Martínez RN) HYDROmorphone (Dilaudid) (1 mg/ml) oral liquid 2 mg 2 mg, Oral, EVERY 3 HOURS PRN, Starting on Fri07/24/22 at 1319, Until Fri07/24/22 at 1825, Pain, Routine 1329 (Given - Provider: Liam Diego, EUGENIE) melatonin tablet 3 mg (CANCELED) 3 mg, Oral, NIGHTLY PRN, Starting on Fri07/20/22 at 2053, Until Fri07/23/22 at 1757, for sleep, May give additional 3mg if patient requests, Routine 2030 (Given - Provider: Kamar Martínez RN) melatonin tablet 6 mg 6 mg, Oral, NIGHTLY PRN, Starting on Fri07/23/22 at 2100, Until Fri07/24/22 at 1825, for sleep, May give additional 3mg if patient requests, Routine 2017 (Given - Provider: Kamar Martínez RN) oxyCODONE (Roxicodone) (1 mg/mL) oral liquid 5-10 mg (CANCELED) 5-10 mg, Oral, EVERY 3 HOURS PRN, Starting on 07/21/22 at 1053, Until Fri07/22/22 at 1141, Pain, Give 5 mg for pain 1-5; GIve 10 mg for pain 6-10; for breakthrough pain, Routine 1101 (Given - Provider: Ester Ellsworth RN) oxyCODONE (Roxicodone) tablet 10 mg (CANCELED) 10 mg, Oral, EVERY 3 HOURS PRN, Starting on Fri07/23/22 at 1740, Until Fri07/24/22 at 0918, Pain, Routine 0808 (Given - Provider: Liam Diego RN) oxyCODONE (Roxicodone) tablet 5-10 mg (CANCELED) 5-10 mg, Oral, EVERY 3 HOURS PRN, Starting on Fri07/22/22 at 1141, Until Fri07/23/22 at 1740, Pain, Give 5 mg for pain 1-5; Give 10 mg for pain 6-10; breakthrough pain, Routine 1425 (Given - Provider: Corazon Perry RN)1712 (Given - Provider: Ester Ellsworth RN)2030 (Given - Provider: Kamar Martínez RN)2344 (Given - Provider: Kamar Martínez RN) 0254 (Given - Provider: Kamar Marítnez RN)0809 (Given - Provider: Ester Ellsworth RN)1154 (Given - Provider: Ester Ellsworth RN)1553 (Given - Provider: Ester Ellsworth RN) documented in this encounter Care Teams Diesel Engineer Relationship Specialty Start Date End Date Wilfrid Peck MD [address] [place] [id number] PCP - General 10/09/10 documented as of this encounter
--- OUTSIDE RECORDS SUMMARY | 2024-08-16 18:22 | XMS_ITS | Encounter Summary ---
Author Organization [facility] Address [address] [facility] [place] [address] Care Team Providers Care Call Center Professional Name Role Phone Wilfrid Peck MD Primary Care Provider [phone] Encounter Details Date Type Department Care Team (Late st Contact Info) Description 07/19/2022 Interpretation Only Radiology 1 [facility] [place] [id number] Unknown None Social History Tobacco Use Types Packs/Day Years [...] Procedure Name Priority Date/Time Associated Diagnosis Comments DH OR ENDOSCOPY Routine 07/19/2022 documented in this encounter Results * DH OR Endoscopy (07/19/2022) Anatomical Region Laterality Modality Other 07/19/2022 Narrative 07/19/2022 12:00 AM EDT Photographs - Images Procedure Note Unknown - 07/19/2022 Photographs - Images Unknown EA IMAGES documented in this encounter Visit Diagnoses Not on filedocumented in this encounter Care Teams Call Center Professional Relationship Specialty Start Date End Date Wilfrid Peck MD [address] [place] [phone] PCP - General 10/09/10 documented as of this encounter
--- OUTSIDE RECORDS SUMMARY | 2024-08-16 18:22 | XMS_ITS | Encounter Summary ---
Author Organization [facility] Address [facility] [place] [address] Care Team Providers Care Clinical Nurse Leader Name Role Phone Wilfrid Peck MD Primary Care Provider + [phone] Encounter Details Date Type Department Care Team (Late st Contact Info) Description 10/24/2022 11:00 AM EST Office [place] [address] Cyrus Nugent MD [facility] [place] [address] Cancer of base of tongue Social History [...] place to sleep or slept in a prison (including now)? No 05/29/2022 Sex and Gender Information Value Date Recorded Sex Assigned at Not on file Gender Identity Not on file Sexual Orientation Not on file documented as of this encounter Last Filed Vital Signs Vital Sign Reading Time Taken Comments Blood Pressure - - Pulse - - Temperature - - Respiratory Rate - - Oxygen Saturation - - Inhaled Oxygen Concentration - - Weight 96.2 kg (212 lb) 10/24/2022 11:06 AM EST Height 190.5 cm (6' 3) 10/24/2022 11:06 AM EST Body Mass Index 26.5 10/24/2022 11:06 AM EST documented in this encounter Progress Notes * Cyrus Nugent MD - 10/24/2022 11:00 AM EST [facility] [place] OTOLARYNGOLOGY HEAD AND NECK TUMOR CLINIC FOLLOW UP NOTE Feliciano Hill is a 62 y.o. 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 No adjuvant radiation therapy recommended. New issues since last visit: Doing great - no issues with swallowing. No pain. No adenopathy. He is wondering why he cannot flexhis platysma muscle PROBLEM LIST Patient Active Problem List Diagnosis Code ??? Lymphadenopathy of head and neck R59.1 ??? 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 Cancer of base of tongue C01 PAST MEDICAL HISTORY Past Medical History: Diagnosis Date ??? Hypercholesterolemia SOCIAL HISTORY Social History Tobacco Use ??? Smoking status: Never ??? Smokeless tobacco: Never Substance Use Topics ??? Alcohol use: Yes Alcohol/week: 7.0 standard drinks Types: 7 Cans of beer per week MEDICATIONS Current Outpatient Medications on File Prior to Visit Medication Sig Dispense Refill ??? ascorbic acid (VITAMIN C ORAL) Take by mouth daily. ??? ergocalciferol, vitamin D2, (VITAMIN D ORAL) Take by mouth daily. ??? KRILL OIL ORAL Take by mouth daily. ??? acetaminophen (Tylenol) 325 mg Tablet Take 3 tablets by mouth every 6 hours. 30 tablet 1 ??? ibuprofen (Advil) 600 mg Tablet Take 1 tablet by mouth every 6 hours. 30 tablet 12 ??? lisinopriL (Zestril) 10 mg Tablet Take 1 tablet by mouth daily. 90 tablet 3 ??? chlorhexidine (Peridex) 0.12 % Mouthwash Take 15 mLs by mouth 3 times daily. (Patient not taking: Reported on 08/29/2022) 120 mL 0 No current facility-administered medications on file prior to visit. ALLERGIES No Known Allergies ROS Pertinent positive findings discussed above. No other findings on review of constitutional visual, cardiovascular, respiratory, gastrointestinal, genitourinary, musculoskeletal, dermatologic, neurological, psychiatric, endocrine, hematologic or immunologic systems. PHYSICAL EXAMINATION Wt Readings from Last 3 Encounters: 10/24/22 96.2 kg (212 lb) 09/24/22 97.5 kg (215 lb) 08/29/22 97.9 kg (215 lb 13.3 oz) General: Well developed, no distress Head/face: Normocephalic, atraumatic Oral cavity: Normal exam of the lips, teeth/gums, floor of mouth, tongue. Normal oral mucosa. Normal palate. Oropharynx: Normal pharyngeal exam.. Neck: S/p right neck dissection, no adenopathy.. Resp: Normal speech, no stridor, normal respirations. Skin: Normal skin survey of the head and neck. MSK: No trismus, normal neck range of motion Neuro: AxOx3; CN II-XII is grossly intact Psych: Normal mood and affect. Responds appropriately to questions. PROCEDURES Procedure Flexible Fiberoptic Laryngoscopy Indication Oropharyngeal cancer Description Informed verbal consent obtained and time out performed. A flexible laryngoscope was used to evaluate bilateral nasal cavity, nasopharynx, oropharynx, hypopharynx and larynx. The examination was recorded on the TelePack Unit and uploaded to the [employer] Inspector. Findings Nasal cavity normal Nasopharynx normal Oropharynx S/p tongue base resection with no recurrence Larynx normal Hypopharynx normal REVIEW OF IMAGES CT neck and chest reviewed: EXAMINATION: CT NECK SOFT TISSUE W CONTRAST (GENERIC) ?? 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 TECHNIQUE: CT neck performed after the intravenous administration of contrast. 110 cc of Omnipaque 350 were injected intravenously for contrast. ?? COMPARISON: CT neck 02/28/2022 and PET/CT scan 05/16/2020 ?? FINDINGS: There is tissue volume loss at the right tongue base related to prior resection. No mass or abnormal enhancement to suggest recurrent tumor. ?? Incidental 8 mm left thyroid lobe hypodense nodule. No additional mass lesion throughout the neck. ?? Surgical clips are seen in the right neck from prior right neck dissection. No cervical lymphadenopathy bilaterally throughout the neck. ?? The visualized portions of the lungs show no pulmonary nodules. The visualized portions of the brain show no abnormal enhancement. No focal osseous lesions to suggest metastatic disease. ? IMPRESSION 1. No evidence of local tumor recurrence. 2. No cervical lymphadenopathy. 3. No evidence of regional distant metastases. 4. Incidental 8 mm left thyroid nodule which does not require further workup per ACR criteria. ?? The majority of incidental thyroid nodules (ITNs) are benign. ?? To avoid unnecessary evaluation the [employer] recommends the following for ITNs discovered on CTor MRI: ?? In patients less than 35 years of age with normal life expectancy, any ITN without suspicious features, 1cm or larger should undergo dedicated thyroid sonography. ?? In patients greater than 35 years of age with normal life expectancy, any ITN without suspicious features, 1.5 cm or larger should undergo dedicated thyroid Sonography. EXAMINATION: CT CHEST W CONTRAST ?? CLINICAL HISTORY: Head/neck cancer, staging Known squamous cell carcinoma of the tongue HPV+ T1N1 ?? TECHNIQUE: Helical CT of the chest with intravenous contrast administration. 110 cc Omnipaque 350. Thin-section reconstructions as well as coronal and sagittal reformatted images were generated. ?? COMPARISON: PET CT 05/16/2022 ?? FINDINGS: Pulmonary parenchyma: Mild dependent atelectasis. Stable sub-6 mm anterior right middle lobe subpleural ovoid soft tissue nodule, likely intrapulmonary lymph node (series 4 image 290). ?? Airways: Central airways are patent. Pleura: No pleural effusions. No pneumothorax. Lymph nodes: No mediastinal or axillary lymphadenopathy. ?? Heart and vasculature: Normal cardiac size. Mild coronary artery calcifications. Mild aortic atherosclerosis. Normal course and caliber of the aorta. Patent branch vessel origins. No pericardial effusion. Other mediastinal structures: Mediastinal fat is preserved. Normal CT appearance of the esophagus. ?? Lower neck: See separately dictated CT neck for dedicated neck findings. ?? Body wall soft tissues: No significant findings. ?? Upper abdomen: 6.1 x 6.0 x 4.7 [...] No suspicious lytic or blastic osseous lesions. ?? IMPRESSION 1. No pulmonary metastases. No lymphadenopathy. [...] makes a malignant etiology much less likely. ASSESSMENT/RECOMMENDATIONS RIOS clinically or radiographically Follow up in 3-4 months I appreciate the opportunity to be involved in Mr. Hill's care. CYRUS NUGENT MD 10/24/2022 documented in this encounter Plan of Treatment Not on file documented as of this encounter Visit Diagnoses Diagnosis Cancer of base of tongue Malignant neoplasm of base of tongue documented in this encounter Care Teams Clinical Nurse Leader Relationship Specialty Start Date End Date Wilfrid Peck MD [address] [place] [id number] PCP - General 10/09/10 documented as of this encounter
--- OUTSIDE RECORDS SUMMARY | 2024-08-16 18:22 | XMS_ITS | Encounter Summary ---
Author Organization [facility] Address [facility] [place] [address] Care Team Providers Care Wrapper Stripper Name Role Phone Wilfrid Peck MD Primary Care Provider + [phone] Reason for Visit * Reason Comments Follow-up Things are going goo d. Encounter Details Date Type Department Care Team ([facility] st Contact Info) Description 08/21/2023 10:40 AM EDT Office [place] [address] Cyrus Isaac MD [facility] [place] [address] Cancer of base of tongue Social History [...] place to sleep or slept in a long term (including now)? No 05/29/2022 Sex and Gender [...] - Inhaled Oxygen Concentration - - Weight 99.9 kg (220 lb 4.8 oz) 08/21/2023 10:35 AM EDT Height 190.5 cm (6' 3) 08/21/2023 10:35 AM EDT Body Mass Index 27.54 08/21/2023 10:35 AM EDT documented in this encounter Progress Notes * Cyrus Isaac MD - 08/21/2023 10:40 AM EDT Images from the original note were not included. Head and Neck Surgery Clinic Follow Up Note Feliciano Hill is a 62 y.o. 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 No adjuvant radiation therapy recommended. New issues since last visit: He reports the R side of his head, face, and neck he still has some lingering numbness. Denies globus sensation, dysphagia, odynophagia. He does reports hoarseness after the morning of drinking ETOH.6 beers per week. Never smoked. Nasal congestion for 1 week, his reports having a cold, denies sinus pain and pressure. [address] completed today. Interval hx (Copied from [facility] on 02/20/23): Still notes a lot of phlegm. Still irritating though has gotten a little better. No pain, but things feel different from prior to his surgery. Eating everything he used to eat. No choking or coughing when eating or drinking. No odynophagia. Breathing well. Voice is normal. Has noted a small lump in the right neck ,and wonders if it is concerning. Has also felt in his throat with his finger a few times, and feels something there. No trismus. No changes to his health. No fevers, chills, night sweats. EXAMINATION @Weight@ General: Well developed, no distress Head/face: Normocephalic, atraumatic Oral cavity: Normal exam of the lips, teeth/gums, floor of mouth, tongue. Normal oral mucosa. Normal palate. Oropharynx: Normal soft palate, tonsils, lateral pharyngeal wall, posterior pharynx. Neck: No adenopathy, no masses, normal thyroid, normal salivary gland exam. Trachea midline. Resp: Normal speech, no stridor, normal respirations. MSK: No trismus PROCEDURES Procedure Flexible Fiberoptic Laryngoscopy Indication Follow up previous R base of tongue SCCa Description Informed verbal consent obtained and time out performed. A flexible laryngoscope was used to evaluate bilateral nasal cavity, nasopharynx, oropharynx, hypopharynx and larynx. The examination was recorded on the TelePack Unit and uploaded to the [employer]rel. Findings Nasal cavity Edematous R inferior turbinate, no other abnormalities. Nasopharynx Rosenm??ller fossa and eustachian tube orifice normal. Oropharynx Post surgical changes to R tonsillar fossa. Larynx Post surgical changes to BOT, no masses or erythema present. Normal L. Hypopharynx R Arytenoid with post surgical changes but piriform sinus patent bilaterally, remainingstructures normal in appearance and function. REVIEW OF IMAGES CT Neck 08/21/23: Stable postsurgical changes without evidence for tumor recurrence. Inflammatory changes of the left maxillary sinus and left-sided ethmoid air cells. ASSESSMENT/RECOMMENDATIONS Feliciano Hill is a 62 y.o. male presenting for 1 year follow up of R BOT SCCa s/p TORS resection SND 2-4 on 07/19/22. No adjuvant radiation therapy recommended. Recommend saline rinses and intranasal steroids OTC PRN for his nasal congestion, he says it has already improved since the symptom onset and is okay without medical management. Reassuring scan, history, and physical examination. Can plan to follow up per GRID in 4-6 months. All questions and concerns addressed at this time. I appreciate the opportunity to be involved in Mr. Hill's care. Leslye Argueta PA-C Resident 08/21/2023 [facility] [place] Attending Note Patient seen and examined with the Associate Provider. I have reviewed and agree with the history, physical, and assessment and plan. Pertinent Exam Findings/Procedure Performed/Imaging Reviewed This patient is 1 year s/p TORs tongue base resection and neck dissection. No adjuvant therapy. He has been doing well with no new complaints. Swallowing is normal. On exam he has no palpable adenopathy. I performed flexible laryngoscopy and there is no evidence of recurrence. I personally reviewed his CT neck and chest with no evidence of recurrence. Assessment/Recommendations RIOS Follow up in 4-6 months documented in this encounter Plan of Treatment Not on file documented as of this encounter Visit Diagnoses Diagnosis Cancer of base of tongue Malignant neoplasm of base of tongue documented in this encounter Care Teams Wrapper Stripper Relationship Specialty Start Date End Date Wilfrid Peck MD [address] [place] [id number] PCP - General 10/09/10 documented as of this encounter
--- OUTSIDE RECORDS SUMMARY | 2024-08-16 18:22 | XMS_ITS | Encounter Summary ---
Author Organization [facility] Address [facility] [place] [address] Care Team Providers Care Navy Seal Name Role Phone Wilfrid Peck MD Primary Care Provider + [phone] Encounter Details Date Type Department Care Team (Late st Contact Info) Description 07/24/2022 Orders [place] [id number] Yudi Guardado MD [facility] [place] [address] Social History Tobacco Use Types Packs/Day Years [...] on filedocumented in this encounter Care Teams Navy Seal Relationship Specialty Start Date End Date Wilfrid Peck MD [address] [place] [id number] PCP - General 10/09/10 documented as of this encounter
--- OUTSIDE RECORDS SUMMARY | 2024-08-16 18:22 | XMS_ITS | Encounter Summary ---
Author Organization [facility] Address [facility] [place] [address] Care Team Providers Care Check Writer Salesperson Name Role Phone Wilfrid Peck MD Primary Care Provider + [phone] Reason for Visit * Reason Comments Follow-up Doing well, numbness is spreading Encounter Details Date Type Department Care Team (Late st Contact Info) Description 06/24/2024 4:40 PM EDT Office [place] [address] [facility] [place] [address] Cancer of base of tongue Social History [...] place to sleep or slept in a halfway (including now)? No 05/29/2022 Sex and Gender [...] - Inhaled Oxygen Concentration - - Weight 97.5 kg (215 lb) 06/24/2024 4:38 PM EDT Height 189.2 cm (6' 2.5) 06/24/2024 4:38 PM EDT Body Mass Index 27.24 06/24/2024 4:38 PM EDT documented in this encounter Progress Notes * Cyrus Nugent MD - 06/24/2024 4:40 PM EDT Images from the original note were not included. Head and Neck Surgery Clinic Follow Up Note Feliciano Hill is a 63 y.o. 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 No adjuvant radiation therapy recommended. New issues since last visit: No new concerns. Sensation in the neck is returning. He is swallowing normally with no pain or adenopathy. EXAMINATION Wt Readings from Last 3 Encounters: 06/24/24 97.5 kg (215 lb) 01/29/24 97.5 kg (215 lb) 08/21/23 99.9 kg (220 lb 4.8 oz) General: Well developed, no distress Head/face: Normocephalic, atraumatic Oral cavity: Normal exam of the lips, teeth/gums, floor of mouth, tongue. Normal oral mucosa. Normal palate. Oropharynx: Normal soft palate, tonsils, lateral pharyngeal wall, posterior pharynx. Neck: S/p right neck dissection with no adenopathy, no masses, normal thyroid, normal salivary gland exam. Trachea midline. Resp: Normal speech, no stridor, normal respirations. MSK: No trismus PROCEDURES Procedure Flexible Laryngoscopy Indication Tongue base cancer Description Informed verbal consent obtained and time out performed. A flexible laryngoscope was used to evaluate bilateral nasal cavity, nasopharynx, oropharynx, hypopharynx and larynx. The examination was recorded on the TelePack Unit and uploaded to the [email or web address] Person. Findings Nasal cavity normal Nasopharynx normal Oropharynx S/p right tongue base resection without evidence of recurrence Larynx normal Hypopharynx abdulaziz ASSESSMENT/RECOMMENDATIONS RIOS RTC per grid I appreciate the opportunity to be involved in Mr. Hill's care. CYRUS NUGENT MD 06/24/2024 documented in this encounter Plan of Treatment Not on file documented as of this encounter Visit Diagnoses Diagnosis Cancer of base of tongue Malignant neoplasm of base of tongue documented in this encounter Care Teams Check Writer Salesperson Relationship Specialty Start Date End Date Wilfrid Peck MD [address] [place] [id number] PCP - General 10/09/10 documented as of this encounter
--- OUTSIDE RECORDS SUMMARY | 2024-08-16 18:22 | XMS_ITS | Encounter Summary ---
Author Organization [facility] Address [facility] [place] [address] Care Team Providers Care Cake Knocker Name Role Phone Wilfrid Peck MD Primary Care Provider [phone] Encounter Details Date Type Department Care Team (Latest Contact Info) Description 10/17/2022 Travel Social History Tobacco Use Types Packs/Day [...] place to sleep or slept in a [facility] (including now)? No 05/29/2022 Sex and Gender Information Value Date Recorded Sex Assigned at Not on file Gender Identity Not on file Sexual Orientation Not on file documented as of this encounter Plan of Treatment Not on file documented as of this encounter Visit Diagnoses Not on filedocumented in this encounter Care Teams Cake Knocker Relationship Specialty Start Date End Date Wilfrid Peck MD [address] [place] [id number] PCP - General 10/09/10 documented as of this encounter
--- OUTSIDE RECORDS SUMMARY | 2024-08-16 18:22 | XMS_ITS | Encounter Summary ---
Author Organization [facility] Address [facility] [place] [address] Care Team Providers Care Construction Cost Estimator Name Role Phone Wilfrid Peck MD Primary Care Provider + [phone] Encounter Details Date Type Department Care Team (Latest Contact Info) Description 08/05/2022 11:00 AM EDT Office Visit [place] [address] Elo Mcclellan APRN [facility] [place] [address] Postoperative examination Social History Tobacco Use Types Packs/Day [...] place to sleep or slept in a mcfp (including now)? No 05/29/2022 Sex and Gender [...] - Inhaled Oxygen Concentration - - Weight 95.3 kg (210 lb) 08/05/2022 10:40 AM EDT Height 190.5 cm (6' 3) 08/05/2022 10:40 AM EDT Body Mass Index 26.25 08/05/2022 10:40 AM EDT documented in this encounter Progress Notes * Elo Mcclellan, ART PSYCHOTHERAPIST OR THERAPIST - 08/05/2022 11:00 AM EDT [facility] [place] Feliciano Hill is a 61 y.o. 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 This patient presented with right neck mass which has been present since November 2021. 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 After reviewing treatment and management options he is elected to proceed with transoral robotic resection. He underwent the following procedures on 07/19/22: 1. Microlaryngoscopy with biopsy 2. Right selective neck dissection levels 2A, 2B, 3, 4 3. Robot-assisted transoral tongue base resection, pharyngectomy, tonsillectomy right side Findings at the time of surgery as follows: Exposure of the tongue base and pharynx was excellent with the laryngoscopy and the Nery Arsen retractor. The primary tumor itself was quite small and appeared localized to the right lateral tongue with gross margins appearing negative on final resection. 1 pathologically enlarged node was identified in level 2A without fixation to surrounding structures. He was discharge home on 07/24/22 on a full liquid diet, with his neck drain removed prior to discharge. He returns today for a hospital check. New issues since last visit: Overall pain is improving. Taking Tylenol during the day and Dilaudid at night. He is hoping to start eating more. HE is on soft diet. Speech is improving. No hemoptysis. Breathing wnl. Would like tostart riding his bike. He continues to feel numb along the right side of his neck. PROBLEM LIST Patient Active Problem List Diagnosis Code ??? Lymphadenopathy of head and neck R59.1 ??? 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 Cancer of base of tongue C01 PAST MEDICAL HISTORY Past Medical History: Diagnosis Date ??? Hypercholesterolemia SOCIAL HISTORY Social History Tobacco Use ??? Smoking status: Never Smoker ??? Smokeless tobacco: Never Used Substance Use Topics ??? Alcohol use: Yes Alcohol/week: 7.0 standard drinks Types: 7 Cans of beer per week MEDICATIONS Current Outpatient Medications on File Prior to Visit Medication Sig Dispense Refill ??? lidocaine (Xylocaine) 2 % Solution Take 10 mLs by mouth as needed for Pain (Use as needed about15 minutes prior to eating.). 100 mL 5 ??? acetaminophen (Tylenol) 325 mg Tablet Take 3 tablets by mouth every 6 hours. 30 tablet 1 ??? ibuprofen (Advil) 600 mg Tablet Take 1 tablet by mouth every 6 hours. 30 tablet 12 ??? chlorhexidine (Peridex) 0.12 % Mouthwash Take 15 mLs by mouth 3 times daily. 120 mL 0 ??? lisinopriL (Zestril) 10 mg Tablet Take 1 tablet by mouth daily. 90 tablet 3 ??? hydroCHLOROthiazide (Hydrodiuril) 12.5 mg Tablet Take 1 tablet by mouth daily. 90 tablet 3 ??? HYDROmorphone (Dilaudid) 1 mg/mL Liquid Take 2 mLs by mouth every 3 hours as needed for Pain. 100 mL 0 No current facility-administered medications on file prior to visit. ALLERGIES No Known Allergies ROS 8 point Review of Systems was normal except for pertinent positives and negatives included in the History of Present Illness. PHYSICAL EXAMINATION Physical Examination: VITALS - Weight : 210 lbs GENERAL - Well dressed and well nourished. - Breathing comfortably without stridor. - No acute distress. FACE - Full and symmetric facial movement. - No dysmorphic facial features. MOUTH - Lips and gingiva pink, moist, without lesions. - Gums/dentition healthy. - Tongue and floor of mouth soft without lesions or masses. - Hard palate without lesions. PHARYNX - Left tonsil , without evidence of bleeding or infection. - Uvula is midline. - Oropharynx symmetric. NECK - Right neck incision with vickie in place; well-approximated, clean, dry, with minor jacy-incisional fullness that is soft. - Thyroid gland without masses or asymmetry. - Trachea midline without deviation. NEURO - Cranial nerves II-XII intact and symmetric. - Responds appropriately to questions. PSYCHE - Normal mood and affect. Pathology [id number] ? Location: [facility]; [facility]; A The signing pathologist has (i) examined the relevant preparation(s) for the specimen(s) and (ii) rendered or confirmed the diagnosis(es). . ? Surgical Pathology DIAGNOSIS A - Left lingual tonsil, [...] (HPV mediated) 0.4 mm upon reconstruction (C21,C35) ??of right base of tongue. - Margins are uninvolved. - No tumor is seen the ?? right palatine tonsil . D - ??Right level 2A neck dissection, excision: - Metastatic carcinoma to one cystic node (3.4 cm greatest ?dimension ) with perinodal ??fibrosis but no overt extranodal extension. - Seven ??additional lymph nodes, negative for malignancy (18). E - ??Right level 3 neck dissection, excision: - Five lymph nodes, negative for malignancy (0/5). F - ??Right level 4 neck dissection, excision: - Two lymph nodes, negative for malignancy (0/2). G - ??Right level 2B neck dissection, excision: - One lymph node, negative for malignancy (0/1). Electronically signed by: ?Radha Patiño DO Verified: ??07/31/2022 12:43 ??Pathologist Performed at: ??-[facility] [place], [place], [place] SYNOPTIC Specimen ?Procedure: ??Right tongue base, tonsillectomy, and phayrengectomy Tumor ?Tumor Focality: ??Unifocal ?Tumor Site: ??Oropharynx ? Tumor Subsite: ??Base of tongue, including lingual tonsil ?Tumor Laterality: ??Right ?Tumor Size: ??0.4 Centimeters (cm) ?Histologic Type: ??Human papillomavirus (HPV)-mediated (positive) squamous ? cell carcinoma (oropharynx only) ?Histologic Grade: ??G1, well differentiated ?Lymphovascular Invasion: ??Not identified ?Perineural Invasion: ??Not identified Margins ?Margin Status for Invasive Tumor: ??All margins negative for invasive tumor ? Distance from Invasive Tumor to Closest Margin: ??3.2 mm ? Closest Margin(s) to Invasive Tumor: ??right lateral pharynx Regional Lymph Nodes ?Regional Lymph Node Status: ??Tumor present in regional lymph node(s) ? Number of Lymph Nodes with Tumor: ??1 . SYNOPTIC ? Laterality of Lymph Node(s) with Tumor: ??Ipsilateral (including midline) ? Size of Largest Zaira Metastatic Deposit: ??3.4 cm ?Number of Lymph Nodes Examined: ??16 Pathologic Stage Classification (pTNM, AJCC 8th Edition) ?pT Category: ??pT1 ?pN Category: ??pN1 Best Tumor Blocks for Future Studies ?Tumor Block(s): ??C21,C35 ?[facility] 2021 Q1 Release ADDITIONAL STUDIES Immunohistochemistry Studies: Formalin-fixed, paraffin-embedded tissue sections are studied using the polymer ??technique with appropriate positive and negative controls. ?These IHC studies ??provide the pathologist with adjunctive diagnostic information. Antibody specificity ??has been verified by testing antibodies on a series of in-house tissues with known ??immunohistochemical performance characteristics. The clinical interpretation of ??any antibody positive staining or its absence is evaluated within the context of ??clinical presentation, morphology, histopathological criteria and other diagnostic ??tests. Block ? Antibody ?Result (Positive/Negative) C35 ?P16 [...] frozen section in 1 cassettes as follows: ? A1: ??FS1 remnant: Left lingual tonsil B - Labeled/Fixative: Right lateral pharynx, fresh for frozen section. Quantity/Size: ??Two, 0.3 and 0.5 cm Tissue Description: Melgar-pink soft tissue Sections/Processing: The specimen is totally submitted for frozen section in 1 cassette as follows: ? B1: ??FS2 remnant: Right lateral pharynx C - Labeled/Fixative: Right tongue base resection, tonsillectomy and pharyngectomy, ??fresh. Quantity/Size: Single, 4.5 x 6.5 x 0.7 cm. 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 Doing well. REcommendations: - Recovering well from his procedures, with no significant postoperative complications since discharge; -Will review the pathology at this week and call pt with the plan. -Able to start progressing diet as tolerated but stay clear of dry bread or rough items. HE should be able to stop the Dilaudid at night and take Tylenol/Ibuprofen for the pain\ - Monitor for any infection issues. F/u will depend on the plan of the TB. -The patient expressed understanding of these points and agreement with the plan, and all questionsthat were asked were answered to the patient's satisfaction. > Patient should call if their symptoms worsen or fail to improve, if new concerning symptoms arise, or if they have any questions or concerns regarding their treatment. I appreciate the opportunity to be involved in Mr. Hill's care. Elo Mcclellan APRN [place], [place] [address] Office 08/05/2022 documented in this encounter Plan of Treatment Not on file documented as of this encounter Visit Diagnoses Diagnosis Postoperative examination Follow-up examination, following unspecified surgery documented in this encounter Care Teams Construction Cost Estimator Relationship Specialty Start Date End Date Wilfrid Peck MD [address] [address] PCP - General 10/09/10 documented as of this encounter
--- OUTSIDE RECORDS SUMMARY | 2024-08-16 18:22 | XMS_ITS | Encounter Summary ---
Author Organization [facility] Address [facility] [place] [address] Care Team Providers Care Inventory Control Analyst Name Role Phone Wilfrid Peck MD Primary Care Provider [phone] Encounter Details Date Type Department Care Team (Latest Contact Info) Description 01/28/2024 Travel Social History Tobacco Use Types Packs/Day [...] place to sleep or slept in a fdc (including now)? No 05/29/2022 Sex and Gender Information Value Date Recorded Sex Assigned at Not on file Gender Identity Not on file Sexual Orientation Not on file documented as of this encounter Plan of Treatment Not on file documented as of this encounter Visit Diagnoses Not on filedocumented in this encounter Care Teams Inventory Control Analyst Relationship Specialty Start Date End Date Wilfrid Peck MD [address] [place] [phone] PCP - General 10/09/10 documented as of this encounter
--- OUTSIDE RECORDS SUMMARY | 2024-08-16 18:22 | XMS_ITS | Encounter Summary ---
Author Organization [facility] [place] [address] Care Team Providers Care Loom Inspector Name Role Phone Wilfrid Peck MD Primary Care Provider [phone] Encounter Details Date Type Department Care Team (Latest Contact Info) Description 10/24/2022 7:00 AM EST Laboratory Appointment Lab 3L [facility] [place] [id number] Cancer of base of tongue Social History [...] Name Priority Date/Time Associated Diagnosis Comments HC CREATININE Routine 10/24/2022 6:59 AM EST Cancer of base of tongue documented in this encounter Results * Creatinine (10/24/2022 6:59 AM EST) Creatinine 0.84 0.80 - 1.50 mg/dL [facility] Est Glomerular Filtration Rate 98 >=60 mL/min/1. 73 m?? [facility] Comment: This patient's estimated GFR [...] Lab Glen Esparza MD CHEMISTRY ORDERABLE S [facility] [place] [address] documented in this encounter Visit Diagnoses Diagnosis Cancer of base of tongue Malignant neoplasm of base of tongue documented in this encounter Care Teams Loom Inspector Relationship Specialty Start Date End Date Wilfrid Peck MD [address] [place] [address] PCP - General 10/09/10 documented as of this encounter
--- OUTSIDE RECORDS SUMMARY | 2024-08-16 18:22 | XMS_ITS | Encounter Summary ---
Author Organization [facility] Address [facility] [place] [address] Care Team Providers Care Rn Occupational Name Role Phone Wilfrid Peck MD Primary Care Provider [phone] Encounter Details Date Type Department Care Team (Late st Contact Info) Description 08/13/2023 Telephone Otolaryngology at [facility] [place] [address] Kelsie Kern Social History Tobacco Use Types Packs/Day Years [...] place to sleep or slept in a snf (including now)? No 05/29/2022 Sex and Gender Information Value Date Recorded Sex Assigned at Not on file Gender Identity Not on file Sexual Orientation Not on file documented as of this encounter Miscellaneous Notes * Telephone Encounter - Kelsie Kern - 08/13/2023 2:27 PM EDT Pt called regarding orders entered. Pt needs to be scheduled for CT's & OV with EULALIO or MITZI. He ispast due. Pt is calling his to see if we are able to get the CT's done tomorrow if they would be able to come to appt. There are current openings at 4pm with EULALIO and MITZI. documented in this encounter Plan of Treatment Not on file documented as of this encounter Visit Diagnoses Not on filedocumented in this encounter Care Teams Rn Occupational Relationship Specialty Start Date End Date Wilfrid Peck MD [address] [place] [id number] PCP - General 10/09/10 documented as of this encounter
--- OUTSIDE RECORDS SUMMARY | 2024-08-16 18:22 | XMS_ITS | Encounter Summary ---
Author Organization [facility] Address [facility] [place] [address] Care Team Providers Care Gear Shaper Name Role Phone Wilfrid Peck MD Primary Care Provider [phone] Encounter Details Date Type Department Care Team (Latest Contact Info) Description 01/08/2024 Travel Social History Tobacco Use Types Packs/Day [...] place to sleep or slept in a mcc (including now)? No 05/29/2022 Sex and Gender Information Value Date Recorded Sex Assigned at Not on file Gender Identity Not on file Sexual Orientation Not on file documented as of this encounter Plan of Treatment Not on file documented as of this encounter Visit Diagnoses Not on filedocumented in this encounter Care Teams Gear Shaper Relationship Specialty Start Date End Date Wilfrid Peck MD [address] [place] [id number] PCP - General 10/09/10 documented as of this encounter
--- OUTSIDE RECORDS SUMMARY | 2024-08-16 18:22 | XMS_ITS | Encounter Summary ---
Author Organization [facility] [place] [address] Care Team Providers Care Hydrodynamics Professor Name Role Phone Wilfrid Peck MD Primary Care Provider [phone] Reason for Referral * Diagnostic Test (Routine) - Closed Specialty Diagnoses / Procedures Referred By Contac t Referred To Contact Radiology Diagnoses Cancer of base of tongue Procedures CT Chest w Contrast Cyrus Isaac MD [facility] [place] [address] [facility] [place] [address] Referral ID Status Reason Start Date Expiration Date V isits Requested Visits Authorized [id number] Closed Specialty Service Requested 08/11/2023 02/08/2025 1 1 * Diagnostic Test (Routine) - Closed Specialty Diagnoses / Procedures Referred By Contac t Referred To Contact Radiology Diagnoses Cancer of base of tongue Procedures CT Neck Soft Tissue w Contrast (Generic) Cyrus Isaac MD [facility] [place] [address] [facility] [place] [address] Referral ID Status Reason Start Date Expiration Date V isits Requested Visits Authorized [id number] Closed Specialty Service Requested 08/11/2023 02/08/2025 1 1 Encounter Details Date Type Department Care Team (Late st Contact Info) Description 08/11/2023 Orders [place] [address] Gladis Fritz, RN Cancer of base of tongue (Primary Dx) Social History Tobacco Use Types Packs/Day Years [...] documented as of this encounter Results * CT Chest w Contrast (08/21/2023 8:19 AM EDT) Anatomical Region Laterality Modality Chest Computed Tomogra phy Impressions 08/21/2023 9:35 AM EDT 1. ??No metastases. 2. ??No significant change in appearance of the chest. Thank you for letting us participate in the care of this patient. ??If you are a health care provider and have any questions regarding this report, please contact the number below. ??For patients who have questions please contact the health adult daycare coordinator that requested your imaging first. ? Electronically signed by: Julius Shelton MD, [facility] ([phone]), at 08/21/2023 9:35 AM Narrative 08/21/2023 9:35 AM EDT EXAMINATION: CT CHEST W CONTRAST CLINICAL HISTORY: Head/neck cancer, monitor TECHNIQUE: Helical CT of the chest after the intravenous administration of contrast, 110 mL of Omnipaque 350. Thin-section reconstructions as well as coronal and sagittal reformatted images were generated. COMPARISON: October 24, 2022 FINDINGS: Pulmonary parenchyma: There is a 5 mm subpleural nodule in the posterior segment of the right upper lobe (series 5, image 31) that was not seen previously but has the appearance most suggestive of focal atelectasis or mild inflammation. No significant pulmonary nodules are seen. Airways: No central endobronchial abnormality. Pleura: There is no pleural effusion, pleural thickening or pneumothorax. Mediastinum and lymph nodes: No lymphadenopathy. Heart and vasculature: The heart size is normal. Calcification is present in the left anterior descending and left circumflex coronary arteries. There is no pericardial effusion Chest wall/lower neck: No significant findings. Upper abdomen: The previously described hemangioma in the right lobe of the liver is unchanged in appearance. Skeletal structures: No acute osseous pathology. Procedure Note Julius Shelton MD - 08/21/2023 EXAMINATION: CT CHEST W CONTRAST CLINICAL HISTORY: Head/neck cancer, monitor TECHNIQUE: Helical CT of the chest after the intravenous administrationof contrast, 110 mL of Omnipaque 350. Thin-section reconstructions as wellas coronal and sagittal reformatted images were generated. COMPARISON: October 24, 2022 FINDINGS: Pulmonary parenchyma: There is a 5 mm subpleural nodule in the posteriorsegment of the right upper lobe (series 5, image 31) that was not seen previouslybut has the appearance most suggestive of focal atelectasis or mildinflammation. No significant pulmonary nodules are seen. Airways: No central endobronchial abnormality. Pleura: There is no pleural effusion, pleural thickening orpneumothorax. Mediastinum and lymph nodes: No lymphadenopathy. Heart and vasculature: The heart size is normal. Calcification is presentin the left anterior descending and left circumflex coronary arteries. There isno pericardial effusion Chest wall/lower neck: No significant findings. Upper abdomen: The previously described hemangioma in the right lobe ofthe liver is unchanged in appearance. Skeletal structures: No acute osseous pathology. IMPRESSION 1. No metastases. 2. No significant change in appearance of the chest. Thank you for letting us participate in the care of this patient. If youare a health care provider and have any questions regarding this report,please contact the number below. For patients who have questions please contactthe health adult daycare coordinator that requested your imaging first. Electronically signed by: Julius Shelton MD, [facility]([phone]), at 08/21/2023 9:35 AM Cyrus Isaac MD IMG CT ORDERABLES * CT Neck Soft Tissue w Contrast (Generic) (08/21/2023 8:19 AM EDT) Anatomical Region Laterality Modality Neck, Head Computed Tomogra phy Impressions 08/21/2023 9:33 AM EDT Stable postsurgical changes without evidence for tumor recurrence. Inflammatory changes of the left maxillary sinus and left-sided ethmoid air cells. Thank you for letting us participate in the care of this patient. ??If you are a health care provider and have any questions regarding this report, please contact the number below. ??For patients who have questions please contact the health adult daycare coordinator that requested your imaging first. ? Electronically signed by: ANOOP Monroy [facility] ([phone]), at 08/21/2023 9:33 AM Narrative 08/21/2023 9:33 AM EDT EXAMINATION: CT NECK SOFT TISSUE W CONTRAST (GENERIC) CLINICAL HISTORY: Head/neck cancer, monitor TECHNIQUE: CT neck performed after the intravenous administration of contrast. 110 cc of Omnipaque 350 administered.. COMPARISON: CT neck 10/24/2022 and PET/CT scan dated 05/16/2020. FINDINGS: Stable postsurgical soft tissue defects at the right tongue base and right palatine tonsil without evidence for recurrent mass. Stable appearance of left-sided tonsilloliths. No masses along the visualized upper aerodigestive tract. Lung apices are clear. Evidence for prior right-sided neck dissection. No lymphadenopathy. Thyroid gland is normal as are the bilateral submandibular and parotid glands. Partial opacification of the left maxillary sinus and left-sided ethmoid air cells. No evidence for recurrent mass. Severe right-sided facet arthropathy at C4-C5. Moderate disc space narrowing C6-C7. Procedure Note David Perez MD - 08/21/2023 EXAMINATION: CT NECK SOFT TISSUE W CONTRAST (GENERIC) CLINICAL HISTORY: Head/neck cancer, monitor TECHNIQUE: CT neck performed after the intravenous administration of contrast. 110 ccof Omnipaque 350 administered.. COMPARISON: CT neck 10/24/2022 and PET/CT scan dated 05/16/2020. FINDINGS: Stable postsurgical soft tissue defects at the right tongue base andright palatine tonsil without evidence for recurrent mass. Stable appearanceof left-sided tonsilloliths. No masses along the visualized upperaerodigestive tract. Lung apices are clear. Evidence for prior right-sided neckdissection. No lymphadenopathy. Thyroid gland is normal as are the bilateralsubmandibular and parotid glands. Partial opacification of the left maxillary sinus and left-sided ethmoidair cells. No evidence for recurrent mass. Severe right-sided facet arthropathy at C4-C5. Moderate disc spacenarrowing C6-C7. IMPRESSION Stable postsurgical changes without evidence for tumor recurrence. Inflammatory changes of the left maxillary sinus and left-sided ethmoidair cells. Thank you for letting us participate in the care of this patient. If youare a health care provider and have any questions regarding this report,please contact the number below. For patients who have questions please contactthe health adult daycare coordinator that requested your imaging first. Cyrus Isaac MD IMG CT ORDERABLES documented in this encounter Visit Diagnoses Diagnosis Cancer of base of tongue- Primary Malignant neoplasm of base of tongue Cancer of base of tongue Malignant neoplasm of base of tongue documented in this encounter Care Teams Hydrodynamics Professor Relationship Specialty Start Date End Date Wilfrid Peck MD [address] [place] [phone] PCP - General 10/09/10 documented as of this encounter
--- OUTSIDE RECORDS SUMMARY | 2024-08-16 18:22 | XMS_ITS | Encounter Summary ---
Author Organization [facility] Address [facility] [place] [address] Care Team Providers Care Contracts Attorney Name Role Phone Wilfrid Peck MD Primary Care Provider + [phone] Encounter Details Date Type Department Care Team (Late st Contact Info) Description 01/09/2024 Telephone Otolaryngology at [facility] [place] [address] Kelsie Kern Social History Tobacco [...] place to sleep or slept in a correction (including now)? No 05/29/2022 Sex and Gender Information Value Date Recorded Sex Assigned at Not on file Gender Identity Not on file Sexual Orientation Not on file documented as of this encounter Miscellaneous Notes * Telephone Encounter - Kelsie Kern - 01/09/2024 10:32 AM EST LVM for pt, sent text and MyD msg regarding 01/12 EULALIO bump due to urgent clinical needs. documented in this encounter Plan of Treatment Not on file documented as of this encounter Visit Diagnoses Not on filedocumented in this encounter Care Teams Contracts Attorney Relationship Specialty Start Date End Date Wilfrid Peck MD [address] [place] [phone] PCP - General 10/09/10 documented as of this encounter
--- OUTSIDE RECORDS SUMMARY | 2024-08-16 18:22 | XMS_ITS | Encounter Summary ---
Author Organization [facility] Address [facility] [place] [address] Care Team Providers Care Fabricator Foam Rubber Name Role Phone Wilfrid Peck MD Primary Care Provider [phone] Encounter Details Date Type Department Care Team (Latest Contact Info) Description 02/20/2023 Travel Social History Tobacco Use Types Packs/Day [...] on filedocumented in this encounter Care Teams Fabricator Foam Rubber Relationship Specialty Start Date End Date Wilfrid Peck MD [address] [place] [phone] PCP - General 10/09/10 documented as of this encounter
--- OUTSIDE RECORDS SUMMARY | 2024-08-16 18:22 | XMS_ITS | Encounter Summary ---
Author Organization [facility] Address [facility] [place] [address] Care Team Providers Care Dog Trainer Name Role Phone Wilfrid Peck MD Primary Care Provider + [phone] Reason for Visit * Reason Comments Follow-up Encounter Details Date Type Department Care Team ([facility] st Contact Info) Description 02/20/2023 9:00 AM EDT Office [place] [address] Martell Camargo PA [facility] [place] [address] Cancer of base of tongue Social History [...] place to sleep or slept in a longterm (including now)? No 05/29/2022 Sex and Gender [...] - Inhaled Oxygen Concentration - - Weight 100.2 kg (220 lb 12.8 oz) 02/20/2023 8:50 AM EDT Height - - Body Mass Index 27.6 10/24/2022 11:06 AM EST documented in this encounter Progress Notes * Martell Camargo PA - 02/20/2023 9:00 AM EDT [facility] FO[place] NOTE Feliciano Hill is a 62 y.o. 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 No adjuvant radiation therapy recommended. ?? At his last ENT visit on 10/24/22, he was doing well, with no difficulties with swallowing, and no pain. There was no evidence of recurrence on clinical exam, or CT neck and chest imaging that day. New issues since last visit: Still notes a lot of phlegm. Still [...] his health. No fevers, chills, night sweats. PROBLEM LIST Patient Active Problem List Diagnosis [...] taking: Reported on 08/29/2022) 120 mL 0 ??? lisinopriL (Zestril) 10 mg Tablet Take 1 tablet by mouth daily. 90 tablet 3 No current facility-administered medications on file prior to visit. ALLERGIES No Known Allergies ROS 8 point Review of Systems was normal except for pertinent positives and negatives included in the History of Present Illness. PHYSICAL EXAMINATION Physical Examination: VITALS - There were no vitals taken for this visit. GENERAL - Well dressed and well nourished. - Breathing comfortably without stridor. - No acute distress. FACE - Full and symmetric facial movement. - No dysmorphic facial features. EYES - Periocular structures and conjunctiva healthy without lesions. - Pupils are equal, round, and reactive to light. - Extraocular movement is full and intact. - No evidence of nystagmus. NOSE Please see findings under Flexible Laryngoscopy procedure. MOUTH - Lips and gingiva pink, moist, without lesions. - Gums/dentition healthy. - Tongue and floor of mouth soft without lesions or masses. - Hard palate without lesions. PHARYNX - Soft palate without lesions. - Uvula is midline. - Oropharynx symmetric. NECK - Soft, supple, without significant lymphadenopathy. - Right neck incision well-healed. - Thyroid gland without masses or asymmetry. - Trachea midline without deviation. NEURO - Cranial nerves II-XII intact and symmetric. - Responds appropriately to questions. PSYCHE - Normal mood and affect. PROCEDURES Procedure: Flexible Laryngoscopy: Indications: Evaluation for mucosal lesion of the upper airway. The risks of the procedure were reviewed, and verbal consent was obtained. Topical anesthetic and decongestant applied to the nasal cavity. The scope was passed through the nasal cavity, through the nasopharynx, and into the oropharynx. The examination was recorded on the TelePack Unit and uploadedto the [facility] Re[facility]at. Patient tolerated the procedure well without any complications. Nasal Cavity: Normal appearing mucosa. No obstructions or lesions noted. Nasopharynx: No lesions or masses noted. Oropharynx: Post-surgical changes noted. No masses, ulcerations or mucosal lesions noted. Larynx: Epiglottis is thin and non-edematous; with some mild erythema along the superior aspect, right morethan left; no associated ulceration. Arytenoids are symmetric. True cords demonstrate full and symmetric motion. Hypopharynx: Piriform sinuses are clear bilaterally, without evidence of masses or lesions. No significant pooling of secretions was noted. No overt laryngeal penetration or aspiration. REVIEW OF IMAGES/STUDIES ASSESSMENT/RECOMMENDATIONS -No evidence of recurrence. Discussed his return to clinic in a few months, but that he should callin the interim for any concerning new symptoms in the interim. Discussed also that he should not try to touch any of the structures in his throat, as this can cause irritation, and may be why he has some erythema of the epiglottis. - The patient expressed understanding of these points and agreement with the plan, and all questions that were asked were answered to the patient's satisfaction. Plan: > Return to clinic per grid. > Patient should call if new concerning symptoms arise, or if they have any questions or concerns regarding their treatment. I appreciate the opportunity to be involved in Mr. Hill's care. Martell Camargo PA-C [place], [place] [address] Office 02/20/2023 documented in this encounter Plan of Treatment Not on file documented as of this encounter Visit Diagnoses Diagnosis Cancer of base of tongue Malignant neoplasm of base of tongue documented in this encounter Care Teams Dog Trainer Relationship Specialty Start Date End Date Wilfrid Peck MD [address] [place] [id number] PCP - General 10/09/10 documented as of this encounter
--- OUTSIDE RECORDS SUMMARY | 2024-08-16 18:22 | XMS_ITS | Encounter Summary ---
Author Organization [facility] Address [facility] [place] [address] Care Team Providers Care Journeyman Wireman Name Role Phone Wilfrid Peck MD Primary Care Provider [phone] Encounter Details Date Type Department Care Team (Latest Contact Info) Description 08/21/2023 Travel Social History Tobacco Use Types Packs/Day [...] place to sleep or slept in a fci (including now)? No 05/29/2022 Sex and Gender Information Value Date Recorded Sex Assigned at Not on file Gender Identity Not on file Sexual Orientation Not on file documented as of this encounter Plan of Treatment Not on file documented as of this encounter Visit Diagnoses Not on filedocumented in this encounter Care Teams Journeyman Wireman Relationship Specialty Start Date End Date Wilfrid Peck MD [address] [place] [id number] PCP - General 10/09/10 documented as of this encounter
--- OUTSIDE RECORDS SUMMARY | 2024-08-16 18:22 | XMS_ITS | Encounter Summary ---
Author Organization [facility] [place] [address] Care Team Providers Care Lead Burner Name Role Phone Wilfrid Peck MD Primary Care Provider + [phone] Encounter Details Date Type Department Care Team (Late st Contact Info) Description 06/24/2022 Telephone Otolaryngology at [facility] [place] [address] Adri Cruz Social History Tobacco Use Types Packs/Day Years Used Date Smoking Tobacco: Never Smokeless Tobacco: Never Overall Financial Resource Strain (CARDIA) Answe r [...] place to sleep or slept in a senior living (including now)? No 05/29/2022 Sex and Gender Information Value Date Recorded Sex Assigned at Not on file Gender Identity Not on file Sexual Orientation Not on file documented as of this encounter Miscellaneous Notes * Telephone Encounter - Adri Cruz - 06/24/2022 1:27 PM EDT [place], Patient is scheduled to have surgery on 07/19/2022 and the packet has been mailed to the verified address on file. Follow up appointment is as follows: No follow up indicated in case Thank you!! documented in this encounter Plan of Treatment Not on file documented as of this encounter Visit Diagnoses Not on filedocumented in this encounter Care Teams Lead Burner Relationship Specialty Start Date End Date Wilfrid Peck MD [address] [place] [phone] PCP - General 10/09/10 documented as of this encounter
--- OUTSIDE RECORDS SUMMARY | 2024-08-16 18:22 | XMS_ITS | Encounter Summary ---
Author Organization [facility] Address [facility] [place] [address] Care Team Providers Care Metalizing Machine Operator Automatic Name Role Phone Wilfrid Peck MD Primary Care Provider [phone] Encounter Details Date Type Department Care Team (Latest Contact Info) Description 06/24/2024 Travel Social History Tobacco Use Types Packs/Day [...] on filedocumented in this encounter Care Teams Metalizing Machine Operator Automatic Relationship Specialty Start Date End Date Wilfrid Peck MD [address] [place] [phone] PCP - General 10/09/10 documented as of this encounter
--- OUTSIDE RECORDS SUMMARY | 2024-08-16 18:22 | XMS_ITS | Encounter Summary ---
Author Organization [facility] [place] [address] Care Team Providers Care Slurry Man Name Role Phone Wilfrid Peck MD Primary Care Provider [phone] Reason for Visit * Auth/Cert Specialty Diagnoses [...] MICROSCOPE (WRVU 2.57) MODIFIER ROBOT,Cyrus Cha MD [facility] [place]OLARY[place] [address] [facility] Referral ID Status Reason Start Date Expiration Date Visits Re quested Visits Authorized [id number] 1 1 Encounter Details Date Type Department Care Team (Late st Contact Info) Description 07/19/2022 8:30 AM EDT Anesthesia [place] [id number] Asad Brady MD [facility] ANESTHESIOLOGY [place] [address] Anesthesia Record Procedure Summary Procedure Name Responsible Anesthesiologist Anesthesia Start Time Anesthesia Stop Time ROBOTIC GLOSSECTOMY, PARTIAL (WRVU 11.14) (Right: Neck) Asad Brady MD 07/19/22 0830 07/19/22 1321 Events Date Time Event Comment 07/19/2022 0810 0830 AN Verify 0830 Start 0830 An Start Data 0835 An Induction 0855 An Intubation 0909 Anesthesia Ready 1303 Extubation/LMA Out 1310 an stop data 1321 Recovery or ICU Handoff Vida ent care was transferred to the destination unit staff after review of the patient's medical history, current anesthetic/surgical status and plan, according to the Provider Handoff Checklist. Nasal intubation difficulties discussed with PACU nurse. Patient VSS 1321 Stop Meds Name Total Midazolam 2 mg fentaNYL 250 mcg Propofol 500 mg Rocuronium 100 mg Ondansetron 4 mg Dexamethasone 10 mg Glycopyrrolate 0.2 mg Succinylcholine 140 mg ampicillin-sulbactam (Unasyn ) 3 g vial attach to sodium chloride 0.9% 100 mL Mini-Bag Plus 6 g Ketamine 10 mg/mL 50 mg HYDROmorphone 2 mg/mL 2 mg Sugammadex 200 mg Labetalol 15 mg Lactated Ringers 1,400 mL * Agents Name O2 Air N2O Sevoflurane (et) * Blood No blood administrations on file. Lines, Drains, and Airways Type Details Placement Removal Incision 07/19/22; 0938; anterior; neck 07/19/22 0938 by Lucia Copeland RN (RETIRED) Peripheral IV Line - Single Lumen 07/19/22; 0808; median cubital vein (antecubital fossa), left; qasv-[id number] catheter system; 20 gauge; 07/24/22; 1448 07/19/22 0808 by Bahman Burleson RN 07/24/22 1448 by Liam Diego RN Urethral Catheter 07/19/22; 0830; Surg mila longer than 2 hours; indwelling catheter with core temperature probe; latex; 14; inserted at this facility; 1; 10; 10; other (see comments) (general anes); drainage bag to dependent drainage; 07/19/22; 1300 07/19/22 0830 by Lucia Copeland RN 07/19/22 1300 by Lucia Copeland, RN ETT Mask Ventilation: Ea geoff (1); ETT Type: Cuffed, PRESCHOOL PARAPROFESSIONAL; ETT Size: 6 mm; Mac Blade: 4; Indirect: Video; Notes: Asleep, Pre-O2; Attempts: 3; Laryngoscopy Grade: 1; ETT Placement Verified By: Auscultation, Capnometry, Visual; Intubation Injury: Soft Tissue, Other; Removal Date: 07/19/22; Removal Time: 1303 07/19/22 0855 by Benjamin Becker CRNA 07/19/22 1303 by Benjamin Becker CRNA (RETIRED) Peripheral IV Line - Single Lumen 07/19/22; 908; dorsal arch vein (top of hand), right; qqal-miz-whlhxv catheter system; Anatomical Landmarks; 18 gauge; 07/21/22; 1733 07/19/22 0909 by Benjamin Becker CRNA 07/21/22 173 by Ester Joseph RN Drain/Device Site 07/19/22; 1242; Righ t; anterior; neck; collapsible closed device; Sterile prep and drape; 15 fr wolfgang; 07/24/22; 1448 07/19/22 1242 by Lucia Copeland RN 07/24/22 1448 by Liam Diego RN documented in this encounter Social History Tobacco Use Types Packs/Day Years [...] money to buy more. Never true 05/29/20 Ran Out of Food in the Last [...] on file documented as of this encounter OR Notes * Anesthesia Postprocedure Evaluation - Asad Brady MD - 07/19/2022 2:51 PM EDT Department of Anesthesiology Post-procedure Note Patient: Asad Hill Procedure Summary Date: 07/19/22 Room / Location: [facility] OR [address] [place] [address] MAIN OR Anesthesia Start: 829 Anesthesia Stop: 1320 Procedures: GLOSSECTOMY, PARTIAL, ROBOT (WRVU 11.14) (Right Neck) PHARYNGECTOMY, LIMITED, ROBOT (WRVU 19.13) (Right Neck) @CERVICAL LYMPHADENECTOMY (MODIFIED RADICAL NECK DISSECTION) (WRVU 23.95) (Right Neck) LARYNGOSCOPY, MICROSCOPE, WITH BIOPSY (WRVU 3.55) (N/A Throat) MODIFIER ROBOT,DAVINCI XI (N/A Neck) 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 Patient Location: PACU/[facility] Level of Consciousness: Conscious but Sleepy Pain Management: Satisfactory Analgesia PONV: None Cardiovascular Status: Hemodynamically Stable Respiratory Status: Stable Respiratory Status Postoperative Fluid Status: Intravascular EUvolemia Possible Anesthetic Complications: NONE apparent at time of evaluation Final Primary Anesthesia Type: General (The anesthetic type performed was the same as planned.) Comments: Patient had a significant amount of bleeding from his nose after attempt at nasal intubation, we intubated him orally with ease and eventually swapped the oral tube for a nasal tube, surgery team was aware and monitored bleeding from the nose, no active bleeding seen at the end of the case. ASAD BRADY MD * Anesthesia Preprocedure Evaluation - Asad Brady MD - 07/19/2022 8:07 AM EDT Pre-Anesthesia Evaluation for: Asad Hill a 61 y.o. male. Procedure(s): GLOSSECTOMY, PARTIAL, ROBOT (WRVU 11.14) PHARYNGECTOMY, LIMITED, ROBOT (WRVU 19.13) @CERVICAL LYMPHADENECTOMY (MODIFIED RADICAL NECK DISSECTION) (WRVU 23.95) LARYNGOSCOPY, WITH MICROSCOPE (WRVU 2.57) MODIFIER ROBOT,DAVINCI XI Patient Active Problem List Diagnosis Date Noted ??? 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 Lymphadenopathy of head and neck 03/29/2022 Past Medical History: Diagnosis Date ??? Hypercholesterolemia Past Surgical History: Procedure Laterality Date ??? IR FNA THYROID NODULE 05/07/2022 IR FNA Thyroid Nodule 05/07/2022 Cyrus Tran MD [facility] INTERVENTIONL RAD ??? PRO LARYNGOSCOPY, DIRCT, OP SCOPE, BIOPSY N/A 05/27/2022 LARYNGOSCOPY, MICROSCOPE, WITH BIOPSY (WRVU 3.55) performed by Glen Esparza MD at [facility] MAIN OR Social History Tobacco Use ??? Smoking status: Never Smoker ??? Smokeless tobacco: Never Used Substance Use Topics ??? Alcohol use: Yes Alcohol/week: 7.0 standard drinks Types: 7 Cans of beer per week Social History Substance and Sexual Activity Drug Use Never No Known Allergies Medications: MAR and/or home medications have been reviewed. Physical Exam: Preprocedure Vitals Current as of 07/19/22 0807 BP: 149/86 Pulse: 54 Resp: 18 SpO2: 97 Temp: 36.1 ??C (97 ??F) Height: 190.5 cm (6' 3) (07/19/22) Weight: 100.3 kg (221 lb 3.2 oz) (07/19/22) BMI: 27.65 IBW: 84.5 kg (186 lb 4.6 oz) Last edited 07/19/22725 by BLOSSOM Airway Assessment: Mallampati: I TM distance: >3 FB Neck ROM: full Cardiovascular Assessment: system normal Pulmonary Assessment: pulmonary exam normal Dental Assessment: - normal exam Misc Assessment: IV access: Peripheral line Last Filed Perioperative Cognitive Screening None Anesthesia Plan: ASA 2 general, with a(n) intravenous induction 61 yo presents for surgery for right tonsillar ca, including DL, TORS, and right neck dissection HTN (lisinopril-hctz) Increased choelsterol 1 drink/day nonsmoker No hx of problems with anesthesia, 6MLT placed by surgeon previously Denies recent CP SOB URI or GERD > 4 mets Risks and benefits of GA discussed All questions answered ASAD BRADY MD Region - Other Informed Consent: Anesthetic plan and risks discussed with patient and spouse. Use of blood products discussed with patient who consented to blood products. Plan discussed with CORPORATE COMMUNICATIONS SPECIALIST. Anesthesia Screening documented in this encounter Plan of Treatment Not on file documented as of this encounter Visit Diagnoses Not on filedocumented in this encounter Administered Medications Inactive Administered Medications - up to 3 most recent administrations Medication Order MAR Action Action Date Dose Rate Site ampicillin-sulbactam (Unasyn) 3 g vial attach to sodium chloride 0.9% 100 mL Mini-Bag Plus 3 g, Intravenous, ONCE, 1 dose, On Fri07/19/22 at 0830, Warning Vesicant/Irritant Medication , Indication for (Active or Suspected): Prophylaxis Bolus 07/19/2022 11:02 AM EDT 3 g New Bag 07/19/2022 9:07 AM EDT 3 g dexAMETHasone (Decadron) injection Intravenous, PRN, Starting on Fri07/19/22 at 0917, Until Fri07/19/22 at 1321, Anesthesia Intra-op, Routine Given 07/19/2022 9:17 AM EDT 10 mg fentaNYL (pf) (50 mcg/mL) multi-dose injection Intravenous, PRN, Starting on Fri07/19/22 at 0919, Until Fri07/19/22 at 1321, Anesthesia Intra-op, Routine Given 07/19/2022 9:19 AM EDT 100 mcg Given 07/19/2022 9:14 AM EDT 100 mcg Given 07/19/2022 8:33 AM EDT 50 mcg glycopyrrolate (Robinul) (0.2 mg/mL) multi-dose injection Intravenous, PRN, Starting on Fri07/19/22 at 1018, Until Fri07/19/22 at 1321, Anesthesia Intra-op, Routine Given 07/19/2022 10:18 AM EDT 0.2 mg HYDROmorphone (Dilaudid) (2 mg/mL) multi-dose injection solution Intravenous, PRN, Starting on Fri07/19/22 at 1009, Until Fri07/19/22 at 1301, Anesthesia Intra-op, Routine Given 07/19/2022 1:03 PM EDT 0.5 mg Given 07/19/2022 11:46 AM EDT 0.5 mg Given 07/19/2022 11:26 AM EDT 0.5 mg ketamine (Ketalar) (10 mg/mL) IV bolus injection (Anesthesia) Intravenous, PRN, Starting on Fri07/19/22 at 0937, Until Fri07/19/22 at 1321, Anesthesia Intra-op Given 07/19/2022 12:22 PM EDT 10 mg Given 07/19/2022 11:26 AM EDT 10 mg Given 07/19/2022 10:36 AM EDT 10 mg labetaloL (Normodyne) (5 mg/mL) multi-dose injection Intravenous, PRN, Starting on Fri07/19/22 at 1320, Until Fri07/19/22 at 1322, Anesthesia Intra-op, Routine Given 07/19/2022 1:20 PM EDT 10 mg Given 07/19/2022 1:11 PM EDT 5 mg lactated ringers infusion Intravenous, CONTINUOUS PRN, Starting on Fri07/19/22 at 0833, Until Fri07/19/22 at 1321, Anesthesia Intra-op New Bag 07/19/2022 8:33 AM EDT midazolam (pf) (Versed) (1 mg/mL) multi-dose injection Intravenous, PRN, Starting on Fri07/19/22 at 0831, Until Fri07/19/22 at 1321, Anesthesia Intra-op, Routine Given 07/19/2022 8:31 AM EDT 2 mg ondansetron (pf) (Zofran) (2 mg/mL) injection Intravenous, PRN, Starting on Fri07/19/22 at 1229, Until Fri07/19/22 at 1321, Anesthesia Intra-op, Routine Given 07/19/2022 12:29 PM EDT 4 mg propofoL (Diprivan) 10 mg/mL bolus injection (Anesthesia) Intravenous, PRN, Starting on Fri07/19/22 at 0835, Until Fri07/19/22 at 1321, Anesthesia Intra-op Given 07/19/2022 8:53 AM EDT 100 mg Given 07/19/2022 8:49 AM EDT 100 mg Given 07/19/2022 8:36 AM EDT 100 mg rocuronium (Zemuron) (10 mg/mL) multi-dose injection Intravenous, PRN, Starting on Fri07/19/22 at 1125, Until Fri07/19/22 at 1321, Anesthesia Intra-op, Routine Given 07/19/2022 11:29 AM EDT 30 mg Given 07/19/2022 11:25 AM EDT 70 mg succinylcholine (Anectine;Quelicin) (20 mg/mL) injection Intravenous, PRN, Starting on Fri07/19/22 at 0836, Until Fri07/19/22 at 1321, Anesthesia Intra-op, Routine Given 07/19/2022 8:36 AM EDT 140 mg sugammadex (Bridion) 100 mg/mL injection Intravenous, PRN, Starting on Fri07/19/22 at 1246, Until Fri07/19/22 at 1321, Anesthesia Intra-op, Routine Given 07/19/2022 12:46 PM EDT 200 mg documented in this encounter Care Teams Slurry Man Relationship Specialty Start Date End Date Wilfrid Peck MD [address] [address] PCP - General 10/09/10 documented as of this encounter
--- OUTSIDE RECORDS SUMMARY | 2024-08-16 18:22 | XMS_ITS | Encounter Summary ---
Author Organization [facility] Address [facility] [place] [address] Care Team Providers Care Gun Perforator Loader Name Role Phone Wilfrid Peck MD Primary Care Provider + [phone] Encounter Details Date Type Department Care Team (Latest Contact Info) Description 08/08/2022 Multidisciplinary Ca re [place] [id number] Joseph Granados MD [facility] [place] [address] Social History Tobacco Use Types Packs/Day Years [...] place to sleep or slept in a long-term (including now)? No 05/29/2022 Sex and Gender Information Value Date Recorded Sex Assigned at Not on file Gender Identity Not on file Sexual Orientation Not on file documented as of this encounter Progress Notes * Joseph Granados MD - 08/08/2022 6:08 AM EDT Images from the original note were not included. 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 male followed for: Right base of tongue cancer ?? This patient presented with right neck mass which has been present since November 2021. His work-up initially performed by Dr. 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 He was then referred to Dr. Isaac, and after reviewing treatment and management options he elected to proceed with transoral robotic resection. He underwent the following procedures on 07/19/22: ?? 1. Microlaryngoscopy with biopsy 2. Right selective neck dissection levels 2A, 2B, 3, 4 3. Robot-assisted transoral tongue base resection, pharyngectomy, tonsillectomy right side ?? Findings at the time of surgery as follows: ?? Exposure of the tongue base and pharynx was excellent with the laryngoscopy and the Nery Arsen retractor. The primary tumor itself was quite small and appeared localized to the right lateral tongue with gross margins appearing negative on final resection. 1 pathologically enlarged node was identified in level 2A without fixation to surrounding structures. Pathology DIAGNOSIS A - Left lingual tonsil, [...] One lymph node, negative for malignancy (0/1). SYNOPTIC Specimen ?Procedure: ??Right tongue base, tonsillectomy, [...] Number of Lymph Nodes with Tumor: ??1 Imaging EXAMINATION: NM PET CT STANDARD PLUS HEAD AND NECK ?? CLINICAL HISTORY: Head/neck cancer, staging ?? TECHNIQUE: Following IV injection of 46-kyoszw-0-deoxyglucose (FDG) a standard uptake of approximately 60 minutes, a noncontrast CT scan followed by a PET scan were acquired from the top of head to mid thighs. The noncontrast CT was used for anatomic localization and photon attenuation correction of the PET scan. No oral contrast was administered. ?? Blood glucose level: 114 (mg/dL) ?? FDG dose: 14.5 mCi ?? COMPARISON: Contrast-enhanced neck CT 02/28/2022 from outside institution ?? FINDINGS: ?? HEAD/NECK: Focal asymmetric FDG avidity seen in the region the right tonsil with slight asymmetric fullness noted anatomically (axial image 72). Interval mild decrease in the complex cystic mass at the right level 2A leeann station, with scattered peripheral and somewhat nodular FDG avidity along its inferior extent, favored to represent necrotic lymphadenopathy. At a similar level as measured on the comparison CT, this currently measures approximately 32 mm AP x 32 mm transverse (axial CT image 77) x 40 mm craniocaudal as compared to 35 x 36 x 49 mm previously. Normal activity in all other soft tissue regions the neck and head. ?? CHEST: Normal activity in all soft tissue regions. Incidental bilateral dependent atelectasis, coronary artery calcifications. ?? ABDOMEN/PELVIS: Normal activity in all soft tissue regions CT evaluation of the upper abdomen is limited by beam hardening artifact from the patient's arms. Apparent heterogeneous attenuation in the right lobe of the liver. Tiny fat-containing umbilical hernia. Right lateral bladder diverticulum. Colonic diverticulosis without acuity. ?? SKELETON/EXTREMITIES: Degenerative uptake in the lower lumbar spine. Normal activity in all other regions of the axial and visualized appendicular skeleton. CT visualized small sclerotic focus in the intertrochanteric region of the right femur is favored to represent a bone island. Slight dextroconvex curvature of the lumbar spine. ?? IMPRESSION 1. Asymmetric FDG avid focus in the right tonsillar region with slight asymmetric fullness on CT, suspicious for malignancy. 2. Mild decrease in right level 2A suspected necrotic leeann metastasis. 3. No distant sites of metastases identified. 4. Heterogeneous CT attenuation of the right lobe of the liver, favored probably artifactual related to beam hardening artifact from the patient's arms; for further evaluation/confirmation, ultrasound is suggested. Tumor Board Recs Clinical observation. Consideration given for adjuvant radiation, but given the adequate margin status, a singular involved node, and lack of other high risk features clinical observation was favored. * (Based on past studies and the information available at the time of presentation) Specific treatment to be undertaken must ultimaly be determined on an individual basis by the patient and those invoved in her/his treatment) Joseph Granados MD PGY-5 [facility] Otolaryngology Pager: [phone] documented in this encounter Plan of Treatment Not on file documented as of this encounter Visit Diagnoses Not on filedocumented in this encounter Care Teams Gun Perforator Loader Relationship Specialty Start Date End Date Wilfrid Peck MD [address] [place] [id number] PCP - General 10/09/10 documented as of this encounter
--- OUTSIDE RECORDS SUMMARY | 2024-08-16 18:22 | XMS_ITS | Encounter Summary ---
Author Organization [facility] [place] [address] Care Team Providers Care Research Home Economist Name Role Phone Wilfrid Peck MD Primary Care Provider [phone] Reason for Visit * Auth/Cert Specialty Diagnoses [...] MICROSCOPE (WRVU 2.57) MODIFIER ROBOT,Cyrus Cha MD [facility] [address] [place] [address] [facility] Referral ID Status Reason Start Date Expiration Date Visits Re quested Visits Authorized [id number] 1 1 Encounter Details Date Type Department Care Team (Late st Contact Info) Description 07/19/2022 8:30 AM EDT - 07/19/2022 1:15 PM EDT Surgery [place] [id number] Cyrus Isaac MD [facility] [place] [address] ROBOTIC GLOSSECTOMY, PARTIAL (WRVU 11.14) Social History Tobacco Use Types Packs/Day Years [...] Sign Reading Time Taken Comments Blood Pressure 169/94 07/19/2022 1:12 PM EDT Pulse 73 07/19/2022 1:12 PM EDT Temperature 36.3 ??C (97.3 ??F) 07/19/2022 1:12 PM ED T Respiratory Rate 19 07/19/2022 1:12 PM EDT Oxygen Saturation 98% 07/19/2022 1:12 PM EDT Inhaled Oxygen Concentration - - Weight 100.3 kg (221 lb 3.2 oz) 07/19/2022 7:26 AM EDT Height 190.5 cm (6' 3) 07/19/2022 7:26 AM EDT Body Mass Index 27.65 07/19/2022 7:26 AM EDT documented in this encounter Discharge Summaries * Jazmine Hinds MD - 07/24/2022 2:42 PM EDT OTOLARYNGOLOGY - HEAD & NECK SURGERY DISCHARGE SUMMARY General Info Patient Name: Feliciano Tavares Patient Age: 61 y.o. Birthdate: 1960 Admit [...] routine care. The patient was admitted on 07/19. POD1: tolerating full liquid diet, pain controlled [...] get Peridex on the $4 list at [facility]. Activity: A good rule of thumb is [...] -You can reach the ENT clinic at [phone] for appointment questions. -The ENT triage nurse is available at [phone] -For urgent issues during evenings (5 PM - 7 AM) and weekends the ENT resident economic manager can be reached through the main hospital white sugar syrup operator at [phone] Follow Up: You will need to follow [...] 11:00 AM Martell Camargo PA Otolaryngology at [facility] Arrive at: Data Acquisition Technician Area [phone] Future Orders Complete By Expires Durable Medical [...] standard Vendor Name/Contact information: [employer] General Instructions None __ Your [...] Center 07/29/2022 11:00 AM Martell Camargo PA [facility] JENSEN [facility] Outpatient Services/Studies: No discharge procedures on file. Primary Care Doctor: Wilfrid Peck MD [phone] Signed: Jazmine Hinds MD 07/24/2022 Routed to [...] get Peridex on the $4 list at [facility]. Activity: A good rule of thumb is [...] -You can reach the ENT clinic at [phone] for appointment questions. -The ENT triage nurse is available at [phone] -For urgent issues during evenings (5 PM - 7 AM) and weekends the ENT resident economic manager can be reached through the main hospital white sugar syrup operator at [phone] Follow Up: You will need to follow [...] 11:00 AM Martell Camargo PA Otolaryngology at [facility] Arrive at: Data Acquisition Technician Area [phone] Future Orders Complete By Expires Durable Medical [...] EDT Graham Encounter Note Patient Name: Feliciano Tavares : [id number] MR#: [id number] Admit Date: 07/19/2022 7:10 AM Hospital Day [...] minutes. Rebekah Marte 07/23/2022 * Ester Joseph V RN - 07/23/2022 3:05 PM EDT OUTCOME [...] where referrals are placed. Provided patient with [facility] Star Quality Rating for Home care hand out. Patient requests referral to : [facility] (Resp Supplies) Central Intake: [place]: [place]: -They cover all [place] *for suction machine Expected date of discharge: 07/23/22. Referral routed to the Hall Tender for matching with agency/vendor and to provide any required information. Houng Root MSN-Ed, RN ACM grocery packer Office of Care Management Pager #[phone] * Jazmine Hinds MD - 07/23/2022 6:05 AM EDT OTOLARYNGOLOGY - HEAD & NECK SURGERY DAILY PROGRESS NOTE Name: Feliciano Tavares Age/Sex: 61 y.o. male Attending: Cyrus Isaac [...] post operative imaging ASSESSMENT & PLAN Feliciano Tavares is a 61 y.o. male s/p TORS [...] PGY1 07/23/22 6:06 AM ENT Team Pager: [phone] * Katheryn Juarez MD - 07/22/2022 12:28 PM EDT OTOLARYNGOLOGY - HEAD & NECK SURGERY DAILY PROGRESS NOTE Name: Feliciano Tavares Age/Sex: 61 y.o. male Attending: Cyrus Isaac [...] reviewed and evaluated ASSESSMENT & PLAN Feliciano Tavares is a 61 y.o. male s/p TORS [...] PGY3 07/22/22 12:28 PM ENT Team Pager: [phone] * Ester Joseph RN - 07/21/2022 11:59 [...] NECK SURGERY DAILY PROGRESS NOTE Name: Feliciano Tavares Age/Sex: 61 y.o. male Attending: Cyrus Isaac [...] reviewed and evaluated ASSESSMENT & PLAN Feliciano Tavares is a 61 y.o. male s/p TORS [...] PGY3 07/21/22 11:32 AM ENT Team Pager: [phone] * Yenni Wyatt RN - 07/21/2022 5:01 AM EDT No acute events. Pt c/o increase salivation. No c/o pain. No visible distress noted. VSS. Call light in reach. * Corazon Varner RCP - 07/21/2022 2:00 AM EDT Received patient on face tent 8L 21%, no significant issues throughout the shift. Will continue to monitor as needed. Corazon Varner RCP * Katheryn Juarez MD - 07/20/2022 10:42 AM EDT OTOLARYNGOLOGY - HEAD & NECK SURGERY DAILY PROGRESS NOTE Name: Feliciano Tavares Age/Sex: 61 y.o. male Attending: Cyrus Isaac [...] reviewed and evaluated ASSESSMENT & PLAN Feliciano Tavares is a 61 y.o. male s/p TORS [...] PGY3 07/20/22 10:42 AM ENT Team Pager: [phone] * Jennifer Lion RN - 07/20/2022 6:00 [...] NECK SURGERY POST OP CHECK Name: Feliciano Tavares Age/Sex: 61 y.o. male Attending: Cyrus Isaac MD Hospital Day: 1 Day of Surgery Patient ID/Reason for Admission Feliciano Tavares is a 61 y.o. male with a hx of tobacco use now s/p partial glossectomy, limited pharyngectomy, cervical lymphadenectomy. Interval History Surgery: Procedure(s): GLOSSECTOMY, PARTIAL, ROBOT (WRVU 11.14) PHARYNGECTOMY, LIMITED, ROBOT (WRVU 19.13) @CERVICAL LYMPHADENECTOMY (MODIFIED RADICAL NECK DISSECTION) (WRVU 23.95) LARYNGOSCOPY, MICROSCOPE, WITH BIOPSY (WRVU 3.55) MODIFIER ROBOT,CALLII XI Subjective/Events: Patient denies fever, chills, chest [...] No postoperative imaging ASSESSMENT & PLAN Feliciano Tavares is a 61 y.o. male s/p Procedure(s): GLOSSECTOMY, PARTIAL, ROBOT (WRVU 11.14) PHARYNGECTOMY, LIMITED, ROBOT (WRVU 19.13) @CERVICAL LYMPHADENECTOMY (MODIFIED RADICAL NECK DISSECTION) (WRVU 23.95) LARYNGOSCOPY, MICROSCOPE, WITH BIOPSY (WRVU 3.55) MODIFIER ROBOT,DAVINCI XI. Patient is doing well postoperatively. Continue with current care plan. __ Jazmine Hinds MD, PGY1 07/19/22 4:38 PM ENT Team Pager: [phone] * Adriane Garcia RN - 07/19/2022 1:30 PM EDT 13:12 Pt arrived to PACU. Sedated. Nathalia to R neck with x1 drain, ANGELA with petroleum dressing. Hypertensive, labetalol given by vice president of procurement. 14:00 Pt awake and alert, oriented x4. Reports some pain to R neck and throat but reports is tolerable. 14:27 Report called to ra Tanner [facility] RN. documented in this encounter H&P Notes * Martell Camargo PA - 07/19/2022 8:01 AM EDT OTOLARYNGOLOGY - HEAD & NECK SURGERY PRE OP H&P Name: Feliciano Tavares Age/Sex: 61 y.o. male Attending: Cyrus Isaac MD Interval History Feliciano Tavares's condition unchanged since H&P originally performed. Denies [...] 2-12 intact bilaterally. ASSESSMENT & PLAN Feliciano Tavares is a 61 y.o. 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 After extensive discussion of the risks, benefits, and alteratives of surgical intervention, the patient consented to proceed with surgery. Proceed to OR for: Procedure(s): GLOSSECTOMY, PARTIAL, ROBOT (WRVU 11.14) PHARYNGECTOMY, LIMITED, ROBOT (WRVU 19.13) @CERVICAL LYMPHADENECTOMY (MODIFIED RADICAL NECK DISSECTION) (WRVU 23.95) LARYNGOSCOPY, WITH MICROSCOPE (WRVU 2.57) MODIFIER ROBOT,JOSELYN XI __ SAE Moreno 07/19/22 8:01 AM Pager: [phone] documented in this encounter Miscellaneous Notes * [...] with plan. Huong Root MSN, RN Pager #[phone] * Plan of Care - Corazon Perry RN - 07/22/2022 1:16 PM EDT 3141-1484: Patient OX4, pleasant. C/o moderate pain when [...] care provider on file: Wilfrid Peck MD [phone] Pharmacy: [facility] - [place], [place] - [address] [facility] [phone] [id number] & [address] [address] Health/Prescription Coverage: Primary Insurance: MVP Payor: MVP / Plan: MVP [place] / Product Type: *No Product type* / Secondary Insurance: N/A ; Prescription Coverage: Yes Preferred Pharmacy: [facility] - [place], [place] - [address] [facility] [address] [id number] - [place] [place] [address] [facility] [address] [facility] [address] [facility] [address] Advance Care Planning: Attempt Cardiopulmonary Resuscitation - [...] Concerns:2 stairs to enter. Current DME: N/A [address] [place] [id number] Social & Family Supports: All names listed below confirmed with patient as current and correct Extended Emergency Contact Information Primary Emergency Contact: LORETTA TAVARES Address: [address] [place] [phone] [facility] Mobile Relation: Spouse Current Care Provided by: [...] with spouse when medically ready. Registered Nurse [address] [employer] / Log Deck Tender will continue to follow patient???s progress and remain available if situation changes for coordination of care, psychosocial support and/or discharge planning. Office of Care Management Covering pager #[phone] for today. * Op Note - Cyrus [...] were retracted with a spandex retractor. The [employer] Federico surgical system was then brought into [...] Valsalva demonstrated no significant bleeding. A 15 Stateless Jose drain was placed and secured with [...] PATHOLOGY STAT 07/19/2022 9:19 AM EDT MODIFIER ROBOT,DAVINCI XI Yes 07/19/2022 8:29 AM EDT Cancer of base of tongue Laryngoscopy, Dirct, Op Scope, Biopsy (25900) Yes 07/19/2022 8:29 AM EDT Cancer of base of tongue Cervical Lymphadectomy Modified Radical Neck Dissection (33066) Yes 07/19/2022 8:29 AM EDT Cancer of base of tongue Partial Removal Of Pharynx (07712) Yes 07/19/2022 8:29 AM EDT Cancer of base of tongue Part Removal Tongue, <1/2 (52052) Yes 07/19/2022 8:29 AM EDT Cancer of [...] EDT) Phosphorus 3.0 2.5 - 4.5 mg/dL [facility] Blood 07/20/2022 12:4 9 AM EDT 07/20/2022 1:01 AM EDT Narrative Resulting Agency Comment Spec In Lab Cyrus Isaac MD CHEMISTRY ORDERABL ES [facility] [place] [address] * Magnesium (07/20/2022 12:49 AM EDT) Magnesium 0.80 0.69 - 1.07 mmol/L [facility] Blood 07/20/2022 12:4 9 AM EDT 07/20/2022 1:01 AM EDT Narrative Resulting Agency Comment Spec In Lab Cyrus Isaac MD CHEMISTRY ORDERABL ES [facility] [place] [address] * Basic Metabolic Panel (non-fasting) (07/20/2022 12:49 AM EDT) Glucose 165 65 - 199 mg/dL [facility] Comment:Diabetes: >=200 mg/d L plus symptoms Blood Urea Nitrogen 18 10 - 20 mg/dL [facility] Creatinine 0.92 0.80 - 1.50 mg/dL [facility] Sodium 138 135 - 145 mmol/L [facility] Potassium 4.4 3.5 - 5.0 mmol/L [facility] Comment: Please note: ??Patients with WBC >100,000 may have falsely elevated Potassium levels. ??For accurate Potassium quantification in these patients send serum separator tube (gold top) for subsequent determinations. ??Contact the Clinical Chemistry Laboratory if there are any questions. Chloride 103 98 - 107 mmol/L [facility] Carbon Dioxide 24 22 - 31 mmol/L [facility] Anion Gap 11 5 - 15 mmol/L [facility] Calcium 9.0 8.5 - 10.5 mg/dL [facility] Est Glomerular Filtration Rate 94 >=60 mL/min/1. 73 m?? [facility] Comment: This patient's estimated GFR [...] Lab Cyrus Isaac MD CHEMISTRY ORDERABL ES [facility] [place] [address] * Basic Metabolic Panel (non-fasting) (07/19/2022 3:44 PM EDT) Glucose 158 65 - 199 mg/dL [facility] Comment:Diabetes: >=200 mg/d L plus symptoms Blood Urea Nitrogen 18 10 - 20 mg/dL [facility] Creatinine 0.97 0.80 - 1.50 mg/dL [facility] Sodium 139 135 - 145 mmol/L [facility] Potassium 4.5 3.5 - 5.0 mmol/L [facility] Comment: Please note: ??Patients with WBC >100,000 may have falsely elevated Potassium levels. ??For accurate Potassium quantification in these patients send serum separator tube (gold top) for subsequent determinations. ??Contact the Clinical Chemistry Laboratory if there are any questions. Chloride 104 98 - 107 mmol/L [facility] Carbon Dioxide 23 22 - 31 mmol/L [facility] Anion Gap 12 5 - 15 mmol/L [facility] Calcium 9.3 8.5 - 10.5 mg/dL [facility] Est Glomerular Filtration Rate 88 >=60 mL/min/1. 73 m?? [facility] Comment: This patient's estimated GFR [...] MD CHEMISTRY ORDERABL ES Performing Organization Address [facility] [place] [place] [address] * Specimen to Pathology (07/19/2022 12:34 PM EDT) AP Specimen 07/19/2022 12:3 4 PM EDT 07/19/2022 12:[address] [facility] - 07/19/2022 12:34 PM EDT Specimen requisition ordered. ??Separate Pathology report to follow Cyrus Isaac MD PATHOLOGY/CYTOLOGY ORDERABLES Performing Organization Address [facility] [place] [place] [address] * Specimen to Pathology (07/19/2022 11:20 AM EDT) AP Specimen 07/19/2022 11:2 0 AM EDT 07/19/2022 11:[address] [facility] - 07/19/2022 11:20 AM EDT Specimen requisition ordered. ??Separate Pathology report to follow Cyrus Isaac MD PATHOLOGY/CYTOLOGY ORDERABLES Performing Organization Address [facility] Co de Phone Number [facility] [place] [address] * Specimen to Pathology (07/19/2022 11:13 AM EDT) AP Specimen 07/19/2022 11:1 3 AM EDT 07/19/2022 11:[address] [facility] - 07/19/2022 11:13 AM EDT Specimen requisition ordered. ??Separate Pathology report to follow Cyrus Isaac MD PATHOLOGY/CYTOLOGY ORDERABLES Performing Organization Address [facility] [place] [place] [address] * Specimen to Pathology (07/19/2022 11:10 AM EDT) AP Specimen 07/19/2022 11:1 0 AM EDT 07/19/2022 11:10 AM EDT [facility] - 07/19/2022 11:10 AM EDT Specimen requisition ordered. ??Separate Pathology report to follow Cyrus Isaac MD PATHOLOGY/CYTOLOGY ORDERABLES Performing Organization Address [facility] [place] [place] [address] * Specimen to Pathology (07/19/2022 11:10 AM EDT) AP Specimen 07/19/2022 11:1 0 AM EDT 07/19/2022 11:10 AM EDT [facility] - 07/19/2022 11:10 AM EDT Specimen requisition ordered. ??Separate Pathology report to follow Cyrus Isaac MD PATHOLOGY/CYTOLOGY ORDERABLES Performing Organization Address [facility] [place] [address] * Specimen to Pathology (07/19/2022 9:26 AM EDT) AP Specimen 07/19/2022 9:26 AM EDT 07/19/2022 9:[address] [facility] - 07/19/2022 9:26 AM EDT Specimen requisition ordered. ??Separate Pathology report to follow Cyrus Isaac MD PATHOLOGY/CYTOLOGY ORDERABLES [facility] [place] [address] * Surgical Pathology Report (07/19/2022 9:19 AM EDT) Final Diagnosis [id number] ? Location: [facility]; [facility]; A The signing pathologist has (i) [...] DO Verified: ??07/31/2022 12:43 ??Pathologist Performed at: ??-[facility] Dept. of Pathology, [facility] [place], [place] SYNOPTIC Specimen ? Procedure: ??Right tongue base, [...] Future Studies ? Tumor Block(s): ??C21,C35 ? [facility] 2021 Q1 Release ADDITIONAL STUDIES Immunohistochemistry [...] lateral tongue- Blue, Right lateral pharynx - [place], Right tonsil Right lateral side - Blue, [...] is no evidence of malignancy. 07/19/22 09:41 /jrmauricio BFS1 - Right lateral pharynx, ?? for frozen section: - ??There is no evidence of malignancy. 07/19/22 09:55 /jrmauricio Electronically signed by: ?MD Cale, Fernando Duran Verified: ??07/19/2022 9:59 ?? Pathologist Performed at: ??-[facility] Dept. of Pathology, [place], [place] This intraoperative consultation should be interpreted as a preliminary diagnosis pending review of the entire specimen and special studies, if any. A final Surgical Pathology report will follow this preliminary Frozen Section report(s). 07/31/2022 12:[address] [facility] LYMPH NODE SPECIMEN / Unknown 07/19/2022 [...] Isaac MD PATHOLOGY/CYTOLOGY ORDERABLES Performing Organization Address City/[facility]/ZIP Co de Phone Number [facility] [place] [address] * Specimen to Pathology (07/19/2022 9:19 AM EDT) AP Specimen 07/19/2022 9:19 AM EDT 07/19/2022 9:[address] [facility] - 07/19/2022 9:19 AM EDT Specimen requisition ordered. ??Separate Pathology report to follow Cyrus Isaac MD PATHOLOGY/CYTOLOGY ORDERABLES Performing Organization Address City/[facility]/[place] [address] documented in this encounter Visit Diagnoses Diagnosis Cancer of base of tongue Malignant neoplasm of base of tongue Tonsil cancer Malignant neoplasm of tonsil Lymphadenopathy of head and neck Cancer of base of tongue Malignant neoplasm of base of tongue Cancer of base of tongue Malignant neoplasm of base of tongue documented in this encounter Admitting Diagnoses Diagnosis Cancer of base of tongue Malignant neoplasm of base of tongue documented in this encounter Administered Medications Inactive Administered Medications - up to 3 most recent administrations Medication Order MAR Action Action Date Dose Rate Site acetaminophen (Tylenol) tablet 975 mg 975 mg, [...] Given 07/23/2022 3:50 PM EDT 15 mLs EPINEPHrine (Adrenalin) nasal solution ONCE PRN, Starting on Fri07/19/22 at 0956, Until Fri07/24/22 at 1825, Intra-Operative (Intra-Procedure), Routine Given 07/19/2022 9:56 AM EDT 30 mLs 19- Surgical Site hydroCHLOROthiazide (Hydrodiuril) tablet 12.5 mg 12.5 mg, Oral, DAILY, First dose on Fri07/20/22 at 0900, Until Discontinued, Routine Given 07/24/2022 8:08 AM EDT 12.5 mg Given 07/23/2022 8:09 AM EDT 12.5 mg Given 07/22/2022 9:34 AM EDT 12.5 mg HYDROmorphone (Dilaudid) (1 mg/ml) oral liquid [...] Given 07/24/2022 12:11 AM EDT 600 mg lidocaine-EPINEPHrine (pf) (1% - 1:200,000) injection ONCE PRN, Starting on Fri07/19/22 at 1002, Until Fri07/24/22 at 1825, Intra-Operative (Intra-Procedure), Routine Given 07/19/2022 10:02 AM EDT 8 mLs 19- Surgical Site lisinopriL (Zestril) tablet 10 mg 10 mg, Oral, DAILY, First dose on Fri07/20/22 at 0900, Until Discontinued, Routine Given 07/24/2022 8:08 AM EDT 10 mg Given 07/23/2022 8:09 AM EDT 10 mg Given 07/22/2022 9:34 AM EDT 10 mg melatonin tablet 6 mg 6 mg, Oral, NIGHTLY PRN, Starting on Fri07/23/22 at 2100, Until Fri07/24/22 at 1825, for sleep, May give additional 3mg if patient requests, Routine Given 07/23/2022 8:18 PM EDT 6 mg pantothenic Ac-Min Oil-Pet,Hyd (Aquaphor) 41 % [...] Given 07/24/2022 8:08 AM EDT 1 tablet documented in this encounter Active and Recently [...] 0808 (Given - Provider: Liam Diego RN) pantothenic Ac-Min Oil-Pet,Hyd (Aquaphor) 41 % ointment 1 each 1 each, Topical (Top), 2 TIMES DAILY, First dose on Fri07/19/22 at 2100, Until Discontinued, Clean incision with sterile saline or half strength hydrogen peroxide and apply aquaphor incision twice daily. 0936 (Given - Provider: Corazon Perry RN)2030 (Given - Provider: Kamar Martínez RN) 0900 (Not Given - Provider: Ester Ellsworth RN - Reason: Patient/family refused)2018 (Given - Provider: Kamar Martínez RN) 0818 [...] movement regularly.) 0808 (Given - Provider: Liam Diego RN) sennosides (Senokot) (1.76 mg/mL) oral liquid 17.6 mg (CANCELED) 17.6 mg, Oral, 2 TIMES DAILY, First dose on Fri07/20/22 at 0900, Until Discontinued, Routine 0934 (Given - Provider: Corazon Perry RN) PRN Medication Order 07/22/2022 07/23/2022 07/24/2022 HYDROmorphone (Dilaudid) (0.5 mg/0.5 mL) injection syringe 0.2 mg (CANCELED) 0.2 mg, Intravenous, EVERY 2 HOURS PRN, Starting on Fri07/19/22 at 1522, Until Fri07/24/22 at 0637, Pain, For breakthrough pain, Routine 181 (Given - Provider: Ester Ellsworth RN - Comment: Ana TRAORE, witness)2017 (Given - Provider: Kamar Martínez RN)2319 (Given - Provider: Kamar Martínez RN) 0210 (Given - Provider: Kamar Martínez RN)0434 (Given - Provider: Kamar Martínez RN) HYDROmorphone (Dilaudid) (1 mg/ml) oral liquid 2 mg 2 mg, Oral, EVERY 3 HOURS PRN, Starting on Fri07/24/22 at 1319, Until Fri07/24/22 at 1825, Pain, Routine 1329 (Given - Provider: Liam Diego RN) melatonin tablet 3 mg (CANCELED) 3 mg, Oral, NIGHTLY PRN, Starting on 07/20/22 at 2053, Until Fri07/23/22 at 1757, for sleep, May give additional 3mg if patient requests, Routine 2029 (Given - Provider: Kamar Martínez RN) melatonin [...] Perry RN)1712 (Given - Provider: Ester Ellsworth RN)2029 (Given - Provider: Kamar Martínez RN)2344 (Given - Provider: Kamar Martínez RN) 0254 (Given - Provider: Kamar Martínez RN)0809 (Given - Provider: Ester Ellsworth RN)1154 (Given - Provider: Ester Ellsworth RN)1553 (Given - Provider: Ester Ellsworth RN) documented in this encounter Care Teams Research Home Economist Relationship Specialty Start Date End Date Wilfrid Peck MD [address] [place] [id number] PCP - General 10/09/10 documented as of this encounter
--- OUTSIDE RECORDS SUMMARY | 2024-08-16 18:22 | XMS_ITS | Encounter Summary ---
Author Organization [place] [address] Care Team Providers Care Velocity Shooter Name Role Phone Wilfrid Peck MD Primary Care Provider [phone] Reason for Referral * Diagnostic Test (Routine) - Closed Specialty Diagnoses / Procedures Referred By Contac t Referred To Contact Radiology Diagnoses Cancer of base of tongue Procedures CT Chest w Contrast Cyrus Isaac MD [facility] [place] [address] [facility] [place] [address] Referral ID Status Reason Start Date Expiration Date V isits Requested Visits Authorized [id number] Closed Specialty Service Requested 08/11/2023 02/08/2025 1 1 * Diagnostic Test (Routine) - Closed Specialty Diagnoses / Procedures Referred By Contac t Referred To Contact Radiology Diagnoses Cancer of base of tongue Procedures CT Neck Soft Tissue w Contrast (Generic) Cyrus Isaac MD [facility] [place] [address] [facility] [place] [address] Referral ID Status Reason Start Date Expiration Date V isits Requested Visits Authorized [id number] Closed Specialty Service Requested 08/11/2023 02/08/2025 1 1 Reason for Visit * Diagnostic Test (Routine) - Closed Specialty Diagnoses / Procedures Referred By Contfior t Referred To Contact Radiology Diagnoses Cancer of base of tongue Procedures CT Neck Soft Tissue w Contrast (Generic) Cyrus Isaac MD [facility] [place] [address] [facility] [place] [address] Referral ID Status Reason Start Date Expiration Date V isits Requested Visits Authorized [id number] Closed Specialty Service Requested 08/11/2023 02/08/2025 1 1 Encounter Details Date Type Department Care Team (Latest Contact Info) Description 08/21/2023 7:32 AM EDT - 08/21/2023 11:59 PM EDT Hospital [place] [address] Cyrus Isaac MD [facility] [place] [address] Cancer of base of tongue Discharge Disposition: Home Social History [...] Diagnosis Comments CT CHEST W CONTRAST Routine 08/21/2023 8 :19 AM EDT Cancer of base of tongue CT NECK SOFT TISSUE W CONTRAST Routine 08/21/2023 8:19 AM EDT Cancer of base of tongue [...] who have questions please contact the health rehab care assistant that requested your imaging first. ? Electronically signed by: Julius Shelton MD, [facility] ([phone]), at 08/21/2023 9:35 AM Narrative 08/21/2023 9:35 [...] patients who have questions please contactthe health rehab care assistant that requested your imaging first. Electronically signed by: Julius Shelton MD, [facility]([phone]), at 08/21/2023 9:35 AM Cyrus Isaac MD [...] who have questions please contact the health rehab care assistant that requested your imaging first. ? Narrative 08/21/2023 9:33 AM EDT EXAMINATION: CT [...] patients who have questions please contactthe health rehab care assistant that requested your imaging first. Cyrus Isaac [...] ONCE PRN, 1 dose, Starting on Blank 08/21/23 at 0819, Until Blank 08/21/23 at 0819, Per Protocol, Warning Vesicant/Irritant Medication , Radiology Contrast, Routine Given 08/21/2023 8:19 AM EDT 110 mLs documented in this encounter Care Teams Velocity Shooter Relationship Specialty Start Date End Date Wilfrid Peck MD [address] [place] [address] PCP - General 10/09/10 documented as of this encounter
--- OUTSIDE RECORDS SUMMARY | 2024-08-16 18:22 | XMS_ITS | Encounter Summary ---
Author Organization [facility] Address [facility] [place] [address] Care Team Providers Care Marketing Sales Supervisor Name Role Phone Wilfrid Peck MD Primary Care Provider [phone] Encounter Details Date Type Department Care Team (Latest Contact Info) Description 02/13/2023 Travel Social History Tobacco Use Types Packs/Day [...] on filedocumented in this encounter Care Teams Marketing Sales Supervisor Relationship Specialty Start Date End Date Wilfrid Peck MD [address] [place] [id number] PCP - General 10/09/10 documented as of this encounter
--- OUTSIDE RECORDS SUMMARY | 2024-08-16 18:22 | XMS_ITS | Encounter Summary ---
Author Organization [facility] Address [facility] [place] [address] Care Team Providers Care Natural Gas Trader Name Role Phone Wilfrid Peck MD Primary Care Provider Reason for Referral * Diagnostic Test (Routine) - Closed Specialty Diagnoses / Procedures Referred By Contac t Referred To Contact Radiology Diagnoses Squamous cell carcinoma of tongue Procedures CT Chest w Contrast PRG CT SCAN THORAX CONTRAST Elo Mcclellan APRN [facility] [place] [address] [facility] [place] [address] Referral ID Status Reason Start Date Expiration Date V isits Requested Visits Authorized [id number] Closed Specialty Service Requested 08/29/2022 02/28/2024 1 1 * Diagnostic Test (Routine) - Closed Specialty Diagnoses / Procedures Referred By Contac t Referred To Contact Radiology Diagnoses Squamous cell carcinoma of tongue Procedures CT Neck Soft Tissue w Contrast (Generic) PRG CT SCAN SOFT TISSUE NECK CONTRAST Elo Mcclellan APRN [facility] [place] [address] [facility] [place] [address] Referral ID Status Reason Start Date Expiration Date V isits Requested Visits Authorized [id number] Closed Specialty Service Requested 08/29/2022 02/28/2024 1 1 Reason for Visit * Reason Comments Follow-up Slowly getting kalyan mariscal Encounter Details Date Type Department Care Team (Brenda martinez Contact Info) Description 08/29/2022 9:00 AM EDT Office Visit Otol[facility]ology at [facility] [place] [address] Elo Mccllelan APRN [facility] [place] [address] Squamous cell carcinoma of tongue Social History Tobacco Use Types [...] place to sleep or slept in a penitentiary (including now)? No 05/29/2022 Sex and Gender [...] - Inhaled Oxygen Concentration - - Weight 97.9 kg (215 lb 14.4 oz) 08/29/2022 8:48 AM EDT Height 190.5 cm (6' 3) 08/29/2022 8:48 AM EDT Body Mass Index 26.99 08/29/2022 8:48 AM EDT documented in this encounter Progress Notes * Eleuterio Elo Yasemin, YARN COMBER - 08/29/2022 9:00 AM EDT [facility] OTOLARYNGOLOGY FOLLOW UP NOTE Feliciano Hill is a 61 y.o. 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 Here for elvie. HPI: This patient presented with right neck mass [...] to discharge. He returns today for a routine recheck. New issues since last visit: Feliciano is doing well. He is eating everything. Weight is stable. No airway issues.. HE did notice his uvula was a bit asymmetrical when he looked in his throat. He denies any cough or hemoptysis. The plan per TB was observation. PROBLEM LIST Patient Active Problem List Diagnosis [...] EXAMINATION Physical Examination: VITALS - Weight : 215 lbs GENERAL - Well dressed and well nourished. - Breathing comfortably without stridor. - No acute distress. FACE - Full and symmetric facial movement. - No dysmorphic facial features. MOUTH - Lips and gingiva pink, moist, without lesions. - Gums/dentition healthy. - Tongue with FROM, The floor of mouth soft without lesions or masses. - Hard palate without lesions. PHARYNX - Left tonsil , without evidence of bleeding or infection. - there is slight asymmetry along the oropharynx with the uvula closer to the R> L with surgicalchanges. No masses or new lesions. NECK - Right neck incision - is c/d/i. No evidence of infection Thyroid gland without masses or asymmetry. - Trachea midline without deviation. NEURO - Cranial nerves II-XII intact and symmetric. - Responds appropriately to questions. PSYCHE - Normal mood and affect. Procedure Note: Flexible Fiberoptic Laryngoscopy: Topical anesthetic and decongestant applied to the nasal cavity. Patient tolerated the procedure well without any complications. Findings: Nasal cavity : anterior examination reveals septum wnl, turbinates non- edematous,no evidence of neoplastic process such as polyps, no mucopurulent drainage. Nasopharynx: clear without masses or lesions. Eustachian tube openings normal. Oropharynx: normal without masses or lesions. Larynx: base of tongue normal, valleculae is clear, epiglottis normal shape and contour without erythema or edema, vocal cords normal without evidence of irritation, discrete lesion or paralysis. Post-cricoid region normal. Piriform sinuses are clear. Hypopharynx:unremarkable. Pathology [id number] ? Location: [facility]; [facility]; A The signing pathologist has [...] Seven ??additional lymph nodes, negative for malignancy (11/24). E - ??Right level 3 neck dissection, excision: - Five lymph nodes, negative for malignancy (0/5). F - ??Right level 4 neck dissection, excision: - Two lymph nodes, negative for malignancy (0/2). G - ??Right level 2B neck dissection, excision: - One lymph node, negative for malignancy (0/1). Electronically signed by: ?Radha Patiño DO Verified: ??07/31/2022 12:43 ??Pathologist Performed at: ??-[facility] Dept. of Pathology, [place], [place] SYNOPTIC Specimen ?Procedure: ??Right tongue base, [...] for Future Studies ?Tumor Block(s): ??C21,C35 ?CAP [facility] 2021 Q1 Release ADDITIONAL STUDIES Immunohistochemistry Studies: [...] x 6.5 x 0.7 cm. Tumor Board: Tumor Board Recs Clinical observation. Consideration given for adjuvant radiation, but given the adequate margin status, a singular involved node, and lack of other high risk features clinical observation was favored. 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 Doing well. Here for a recheck. Doing well. RIOS REcommendations: - Monitor for any infection issues. -PLan for CT of neck and Chest the beginning of October and f/u with on the same day. -monitor for any changes and f/u sooner if needed. -The patient expressed understanding of these points [...] in Mr. Hill's care. Elo Mcclellan APRN [place], [place] [address] Office 08/05/2022 documented in this encounter Plan [...] who have questions please contact the health attending ambulatory care that requested your imaging first. ? Narrative 10/24/2022 11:16 AM EST EXAMINATION: CT [...] patients who have questions please contactthe health attending ambulatory care that requested your imaging first. Electronically signed by: Sarai Weeks MD, [facility] ([phone]), at 10/24/2022 11:16 AM Elo Mcclellan APRN [facility] CT ORDERABLES * CT Neck Soft Tissue [...] are benign. To avoid unnecessary evaluation the [employer] recommends the following for [...] who have questions please contact the health attending ambulatory care that requested your imaging first. ? Narrative 10/24/2022 10:47 AM EST EXAMINATION: CT [...] are benign. To avoid unnecessary evaluation the [employer]iologyrecommends the following for ITNs discovered on CTor MRI: In patients less than 35 years of age with normal life expectancy, anyITN without suspicious features, 1cm or larger should undergo dedicatedthyroid sonography. In patients greater than 35 years of age with normal life expectancy, anyITN without suspicious features, 1.5 cm or larger should undergo dedicatedthyroid sonography. Reference: Jerry SIBLEY, et al. Managing Incidental Thyroid Nodules Detected on Imaging:White Paper of the ACR Incidental Thyroid Findings Committee. J Am Marc Radiol 2015;12:143-150. Thank you for letting us participate in the care of this patient. If youare a health care provider and have any questions regarding this report,please contact the number below. For patients who have questions please contactthe health attending ambulatory care that requested your imaging first. Elo Mcclellan APRN [facility] CT ORDERABLES documented in this encounter Visit Diagnoses Diagnosis Squamous cell carcinoma of tongue Malignant neoplasm of tongue, unspecified site Squamous cell carcinoma of tongue Malignant neoplasm of tongue, unspecified site documented in this encounter Care Teams Natural Gas Trader Relationship Specialty Start Date End Date Wilfrid Peck MD [address] [place] [address] PCP - General 10/09/10 documented as of this encounter
--- OUTSIDE RECORDS SUMMARY | 2024-08-16 18:22 | XMS_ITS | Encounter Summary ---
Author Organization [facility] Address [facility] [place] [address] Care Team Providers Care Internal Revenue Service Agent Name Role Phone Wilfrid Peck MD Primary Care Provider [phone] Encounter Details Date Type Department Care Team (Latest Contact Info) Description 08/20/2023 Travel Social History Tobacco Use Types Packs/Day [...] on filedocumented in this encounter Care Teams Internal Revenue Service Agent Relationship Specialty Start Date End Date Wilfrid Peck MD [address] [place] [address] PCP - General 10/09/10 documented as of this encounter
--- OUTSIDE RECORDS SUMMARY | 2024-08-16 18:22 | XMS_ITS | Encounter Summary ---
Author Organization [facility] Address [facility] [place] [address] Care Team Providers Care Blower And Compressor Assembler Name Role Phone Wilfrid Peck MD Primary Care Provider [phone] Reason for Visit * Reason Comments Follow-up Doing well, no colton rns at this time. Encounter Details Date Type Department Care Team (Late st Contact Info) Description 01/29/2024 10:30 AM EDT Office [place] [address] Martell Camargo PA [facility] [place] [address] Cancer of base of tongue Social History [...] place to sleep or slept in a fpc (including now)? No 05/29/2022 Sex and Gender [...] - - Weight 97.5 kg (215 lb) 01/29/2024 10:06 AM EDT Height 190.5 cm (6' 3) 01/29/2024 10:06 AM EDT Body Mass Index 26.87 01/29/2024 10:06 AM EDT documented in this encounter Progress Notes * Martell Camargo PA - 01/29/2024 10:30 AM EDT [facility] OTOLARYNGOLOGY FOLLOW UP NOTE Feliciano Hill is a 63 y.o. male followed for: cancer of base of tongue. [id number] p16+ SCCa of right base of tongue s/p TORS resection SND 2-4 on 07/19/2022. No adjuvant radiation therapy recommended. At his last ENT visit on 08/21/23, there was no evidence of recurrence on clinical exam, or his CT neck and chest on the same day. New issues since last visit: No new difficulties. Did have a question about the coronary findings on his last chest CT. Side of his head and neck is still numb. No pain. No new swelling. Eating whatever he wants. No changes in breathing. No hemoptysis. No otalgia. No trismus. No new numbness in the tongue or throat. 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 ergocalciferol, vitamin D2, (VITAMIN D ORAL) Take by mouth daily. KRILL OIL ORAL Take by mouth daily. acetaminophen (Tylenol) 325 mg Tablet Take 3 tablets by mouth every 6 hours. 30 tablet 1 ibuprofen (Advil) 600 mg Tablet Take 1 tablet by mouth every 6 hours. 30 tablet 12 chlorhexidine (Peridex) 0.12 % Mouthwash Take 15 mLs by mouth 3 times daily. (Patient not taking: Reported on 08/29/2022) 120 mL 0 lisinopriL (Zestril) 10 mg Tablet Take 1 [...] Oropharynx symmetric. NECK - Right neck incision well-healed. - No significant lymphadenopathy. - Thyroid gland without masses or asymmetry. [...] on the [employer] and uploadedto the [employer]. Patient tolerated the procedure well without any complications. Nasal Cavity: Normal appearing mucosa. No obstructions or lesions noted. Nasopharynx: No lesions or masses noted. Oropharynx: Post surgical changes noted. No masses, ulcerations or mucosal lesions noted. Larynx: Epiglottis is thin and non-edematous. Arytenoids are symmetric. True cords demonstrate full and symmetric motion. Hypopharynx: Piriform sinuses are clear bilaterally, without evidence of masses or lesions. No significant pooling of secretions was noted. No overt laryngeal penetration or aspiration. REVIEW OF IMAGES/STUDIES ASSESSMENT/RECOMMENDATIONS - No evidence of recurrence. - Discussed his return to clinic in about 4 months for reassessment, but that he should call to be seen sooner for any new/concerning lesions in the interim. - Discussed the patient's question about the mild coronary artery atherosclerosis noted on his CT chest imaging form 2021 and 2022; and that he should follow up with his PCP regarding this to determine if there was any further evaluation that was warranted. - The patient expressed understanding of these points and agreement with the plan, and all questions that were asked were answered to the patient's satisfaction. Plan: > Return to clinic in 4 months. > Follow up with PCP regarding coronary atherosclerotic disease. > Patient should call if their symptoms worsen or fail to improve, if new concerning symptoms arise, or if they have any questions or concerns regarding their treatment. I appreciate the opportunity to be involved in Mr. Hill's care. Martell Camargo PA-C [place], [place] [address] Office 01/29/2024 documented in this encounter Plan of Treatment Not on file documented as of this encounter Visit Diagnoses Diagnosis Cancer of base of tongue Malignant neoplasm of base of tongue documented in this encounter Care Teams Blower And Compressor Assembler Relationship Specialty Start Date End Date Wilfrid Peck MD [address] [place] [id number] PCP - General 10/09/10 documented as of this encounter
--- OUTSIDE RECORDS SUMMARY | 2024-08-16 18:22 | XMS_ITS | Encounter Summary ---
Author Organization [facility] Address [facility] [place] [address] Care Team Providers Care Electronic Data Interchange Specialist Name Role Phone Wilfrid Peck MD Primary Care Provider [phone] Encounter Details Date Type Department Care Team (Late st Contact Info) Description 07/29/2022 11:00 AM EDT Office Visit [place] [address] Martell Camargo PA [facility] [place] [address] Cancer of base of tongue Social History [...] - Inhaled Oxygen Concentration - - Weight 91.6 kg (202 lb) 07/29/2022 11:03 AM EDT Height 190.5 cm (6' 3) 07/29/2022 11:03 AM EDT Body Mass Index 25.25 07/29/2022 11:03 AM EDT documented in this encounter Progress Notes * Martell Camargo PA - 07/29/2022 11:00 AM EDT [facility] FOLLOW UP NOTE Feliciano Hill is a 61 y.o. male followed for: Right base of tongue cancer This patient presented with right neck mass [...] hospital check. New issues since last visit: Feels that the pain is crazy. Has been taking tylenol (1000mg every 6 hours) , ibuprofen (600mg every 6 hours), and dilaudid. Doesn't feel like himself due to the meds. Has started taking dilaudid only at night. Pain is getting better every day, though. Hasn't gained any weight back. Eating smoothies, poached eggs, purees, protein drinks. Still doing peridex 2 times per day. If he does some deep coughing, he can hack up some blood; otherwise no hemoptysis. Breathing well. No swelling in the neck. Has been using a stool softener; PROBLEM LIST Patient Active Problem List Diagnosis [...] to Visit Medication Sig Dispense Refill ??? acetaminophen (Tylenol) 325 mg Tablet Take 3 tablets by mouth every 6 hours. 30 tablet 1 ??? ibuprofen (Advil) 600 mg Tablet Take 1 tablet by mouth every 6 hours. 30 tablet 12 ??? amoxicillin-clavulanate (Augmentin) 875-125 mg Tablet Take 1 tablet by mouth 2 times daily for 7 days. 14 tablet 0 ??? chlorhexidine (Peridex) 0.12 % Mouthwash Take [...] Illness. PHYSICAL EXAMINATION Physical Examination: VITALS - Height 190.5 cm (6' 3), weight 91.6 kg (202 lb). GENERAL - Well dressed and well nourished. - Breathing comfortably without stridor. - No acute distress. FACE - Full and symmetric facial movement. - No dysmorphic facial features. EYES - Periocular structures and conjunctiva healthy without lesions. - Pupils are equal, round, and reactive to light. - Extraocular movement is full and intact. - No evidence of nystagmus. MOUTH - Lips and gingiva pink, moist, without lesions. - Gums/dentition healthy. - Tongue and floor of mouth soft without lesions or masses. - Hard palate without lesions. PHARYNX - Left tonsil and base of tongue surgical sites appear healthy, without evidence of bleeding or infection. - [...] PSYCHE - Normal mood and affect. PROCEDURES REVIEW OF IMAGES/STUDIES ASSESSMENT/RECOMMENDATIONS - Recovering well from his procedures, with no significant postoperative complications since discharge; though with challenges related to pain management and nutritional intake. - Discussed that his pathology was not yet returned. Discussed his return to clinic in 1 weeks for reassessment, and review of his pathology which should be back at that point. - Discussed incision care, including allowing the area to get wet, but not scrubbing or submerging in water, and application of aquaphor to the site 2 times per day; activities, including no straining for another week, and then titrating up activities per toleration thereafter; increasing his pain control with trial of viscous lidocaine prior to meals; adding protein powder to his liquid intake to help improve nutrition; and symptoms to monitor for, including swelling, bleeding or drainage, increasing pain, fevers, or any other concerning symptom. - The patient expressed understanding of these points and agreement with the plan, and all questions that were asked were answered to the patient's satisfaction. Plan: > Return to clinic in 1 week. > Continue oral antibiotics for 2 more days. > Viscous lidocaine prior to meals. > Activities and incision care as above. > Patient should call if their symptoms worsen or fail to improve, if new concerning symptoms arise, or if they have any questions or concerns regarding their treatment. I appreciate the opportunity to be involved in Mr. Hill's care. Martell Camargo PA-C [place], [place] [address] Office 07/29/2022 documented in this encounter Plan of Treatment Not on file documented as of this encounter Visit Diagnoses Diagnosis Cancer of base of tongue Malignant neoplasm of base of tongue documented in this encounter Care Teams Electronic Data Interchange Specialist Relationship Specialty Start Date End Date Wilfrid Peck MD [address] [place] [id number] PCP - General 10/09/10 documented as of this encounter
--- OUTSIDE RECORDS SUMMARY | 2024-08-16 18:22 | XMS_ITS | Clinical Summary ---
Author Organization [facility] Address [facility] [place] [address] Care Team Providers Care Lead Carpenter Name Role Phone Wilfrid Peck MD Primary Care Provider [phone] Allergies No known active allergies Medications Medication Sig Dispensed Refills Start Date End Date Status acetaminophen (Tylenol) 325 mg Tablet Take 3 tablets by mouth every 6 hours. 30 tablet 1 07/24/2022 Active ibuprofen (Advil) 600 mg Tablet Take 1 tablet by mouth every 6 hours. 30 tablet 12 07/24/2022 Active chlorhexidine (Peridex) 0.12 % Mouthwash Take 15 mLs by mouth 3 times daily. 120 mL 07/24/2022 Active Additional Information Patient not taking.Reported on 08/29/2022 lisinopriL (Zestril) 10 mg Tablet Take 1 tablet by mouth daily. 90 tablet 3 07/25/2022 Active ascorbic acid (VITAMIN C ORAL) Take by mouth daily. Active ergocalciferol, vitamin D2, (VITAMIN D ORAL) Take by mouth daily. Active KRILL OIL ORAL Take by mouth daily. 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, p16(+), trivial tobacco history Surgery Only Patient's Name: Feliciano Hill Surgery Date: 07/19/2022 Interval Follow Up: Year 1 Post-Op 1 Month 2 Months 3 Months 4 Months 5 Months 6 Months 9 Months 12 Months 08/18/22 09/17/22 10/17/22 11/16/22 12/16/22 03/01/23 05/30/23 08/28/23 JENSEN - MD x x x x x JENSEN - AP x x x x Palliative Care Assess PsychOnc Speech PRN x Soc Work x PT x Nutrition PRN CT Neck x x CT Chest x x PET/CT PRN > 1 YEAR 15 Months 18 Months 21 Months 24 Months 28 Months 32 Months 36 Months 42 Months 48 Months 54 Months 60 Months 10/12/23 01/10/24 04/09/24 07/08/24 11/05/24 03/05/25 07/03/25 12/30/25 06/28/26 12/25/26 06/23/27 JENSEN - MD x x x x x JENSEN - AP x x x x x x > 5 YEAR Surveillence Alternate annual follow-up appointments between AP and MD, beginning with AP at 6-year appt. Lymphadenopathy of head and neck 03/29/2022 Encounters Date Type Department Care Team Description 06/24/2024 4:40 PM EDT Office [place] [address] Cyrus Isaac MD Cancer of base of tongue 06/24/2024 Travel from Last 3 Months Social History Tobacco Use Types Packs/Day Years [...] place to sleep or slept in a [place] facility (including now)? No 05/29/2022 Sex and Gender Information Value Date Recorded Sex Assigned at Not on file Gender Identity Not on file Sexual Orientation Not on file Last Filed Vital Signs Vital Sign Reading Time Taken Comments Blood Pressure 112/66 07/24/2022 12:00 PM EDT Pulse 60 07/24/2022 12:00 PM EDT Temperature 36.5 ??C (97.7 ??F) 07/24/2022 12:00 PM E DT Respiratory Rate 15 07/24/2022 12:00 PM EDT Oxygen Saturation 98% 07/24/2022 12:00 PM EDT Inhaled Oxygen Concentration - - Weight 97.5 kg (215 lb) 06/24/2024 4:38 PM EDT Height 189.2 cm (6' 2.5) 06/24/2024 4:38 PM EDT Body Mass Index 27.24 06/24/2024 4:38 PM EDT Plan of Treatment Health Maintenance Due Date Last Done Comments CT Colonography 1959 Colonoscopy 1959 Colorectal Cancer Screening 1959 FIT DNA 1959 FIT 1959 Sigmoidoscopy (10 year) with FIT yearly 1959 Sigmoidoscopy 1959 HIV screen 1977 Hepatitis C Screening 1977 Lipid Screening 1977 Tetanus/Diphtheria/Pertussis Vaccines (1 - Tdap) 1978 Zoster vaccine (1 of 2) 2009 Covid-19 Vaccine (1 - season) 2024 Influenza (Flu) vaccine (1 o f 1 - Influenza standard series) 07/18/2024 Diabetes Screening (HgbA1C or Glucose) 07/20/2025, 07/19/2022 Procedures Procedure Name Priority Date/Time Associated Diagnosis Comments HC VENIPUNCTURE Routine 07/20/2022 12:49 AM EDT from Last 3 Months or Most Recently Relevant to Health Maintenance Results * Basic Metabolic Panel (non-fasting) (07/20/2022 12:49 AM EDT) Glucose 165 65 - 199 mg/dL [facility] Comment:Diabetes: >=200 mg/d L plus symptoms Blood Urea Nitrogen 18 10 - 20 mg/dL [facility] Creatinine 0.92 0.80 - 1.50 mg/dL [facility] Sodium 138 135 - 145 mmol/L [facility] Potassium 4.4 3.5 - 5.0 mmol/L [facility] Comment: Please note: ??Patients with WBC >100,000 may have falsely elevated Potassium levels. ??For accurate Potassium quantification in these patients send serum separator tube (gold top) for subsequent determinations. ??Contact the Clinical Chemistry Laboratory if there are any questions. Chloride 103 98 - 107 mmol/L [facility] Carbon Dioxide 24 22 - 31 mmol/L [facility] Anion Gap 11 5 - 15 mmol/L [facility] Calcium 9.0 8.5 - 10.5 mg/dL [facility] Est Glomerular Filtration Rate 94 >=60 mL/min/1. 73 m?? 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 directive * Attempt Cardiopulmonary Resuscitation - Inpatient (Latest Code Status on File) Date Activated Date Inactivated Comments 07/19/2022 1:02 PM 07/24/2022 6:25 PM Question Answer Comments Code Status decision made by: Patient Care Teams Lead Carpenter Relationship Specialty Start Date End Date Wilfrid Peck MD [address] [place] [address] PCP - General 10/09/10
--- OUTSIDE RECORDS SUMMARY | 2024-08-16 18:23 | XMS_ITS | Encounter Summary ---
Author Organization [facility] Address [facility] [place] [address] Care Team Providers Care Electrical Systems Designer Name Role Phone Wilfrid Peck MD Primary Care Provider + [phone] Encounter Details Date Type Department Care Team (Late st Contact Info) Description 03/15/2022 Ancillary Procedure Radiology Library at [facility] [place] [address] Cyrus Isaac MD [facility] [place] [address] Neck mass Social History Tobacco Use Types Packs/Day Years Used Date Smoking Tobacco: Never Assessed Smokeless Tobacco: Never Sex and Gender Information Value Date Recorded Sex Assigned at Not on file Gender Identity Not on file Sexual Orientation Not on file documented as of this encounter Plan of Treatment Not on file documented as of this encounter Procedures Procedure Name Priority Date/Time Associated Diagnosis Comments REQUEST FOR 2ND READ CT NECK Routine 03/14/2022 11:29 AM EDT Neck mass documented in this encounter Results * Request For 2nd Read CT Neck (03/14/2022 11:29 AM EDT) Anatomical Region Laterality Modality Neck SO Impressions 03/14/2022 1:06 PM EDT Complex cystic mass at the right level 2A leeann station is a leeann metastasis until proven otherwise. There is concern for a possible right tonsillar primary. Thank you for letting us participate in the care of this patient. ??If you are a health care provider and have any questions regarding this report, please contact the number below. ??For patients who have questions please contact the health care tech that requested your imaging first. ? Narrative 03/14/2022 1:06 PM EDT EXAMINATION: REQUEST FOR 2ND READ CT NECK CLINICAL HISTORY: Right multi-eptated cystic neck mass felt to be possible plunging ranula; malignancy not excluded.; Sending Institution [facility]; Date of exam [id number]; I believe a reinterpretation of this exam may alter care of Patient. Yes TECHNIQUE: Reinterpretation outside CT neck dated 02/28/2022. COMPARISON: None FINDINGS: At the right level 2A leeann station is septated cystic lesion measuring 3.6 cm transverse, 3.5 cm AP and 4.9 cm craniocaudal. A thicker rind of enhancement is present along the inferior margin of the mass best appreciated on coronal images 83 through 87. No surrounding inflammatory change. Anteriorly, the lesion abuts and mildly deforms the posterior margin of the right submandibular gland but does not arise from or invade into the submandibular gland. Mild asymmetric fullness of the right palatine tonsil is best appreciated on coronal image 56. Otherwise no potential masses along the visualized upper aerodigestive tract. No other neck masses are identified. Bilateral parotid glands appear normal. Several subcentimeter hypodensities within the left thyroid lobe. No aggressive osseous lesions. Procedure Note David Perez MD - 03/14/2022 EXAMINATION: REQUEST FOR 2ND READ CT NECK CLINICAL HISTORY: Right multi-eptated cystic neck mass felt to bepossible plunging ranula; malignancy not excluded.; Sending Institution [facility]; Date of exam 20220228; I believe a reinterpretation of this exam may altercare of Patient. Yes TECHNIQUE: Reinterpretation outside CT neck dated 02/28/2022. COMPARISON: None FINDINGS: At the right level 2A leeann station is septated cystic lesion measuring 3.6 cm transverse, 3.5 cm AP and 4.9 cm craniocaudal. A thickerrind of enhancement is present along the inferior margin of the mass bestappreciated on coronal images 83 through 87. No surrounding inflammatory change.Anteriorly, the lesion abuts and mildly deforms the posterior margin of the right submandibular gland but does not arise from or invade into thesubmandibular gland. Mild asymmetric fullness of the right palatine tonsil is best appreciatedon coronal image 56. Otherwise no potential masses along the visualizedupper aerodigestive tract. No other neck masses are identified. Bilateral parotid glands appear normal. Several subcentimeterhypodensities within the left thyroid lobe. No aggressive osseous lesions. IMPRESSION Complex cystic mass at the right level 2A leeann station is a nodalmetastasis until proven otherwise. There is concern for a possible right tonsillarprimary. Thank you for letting us participate in the care of this patient. If youare a health care provider and have any questions regarding this report,please contact the number below. For patients who have questions please contactthe health care tech that requested your imaging first. Electronically signed by: David Perez [facility]([phone]), at 03/14/2022 1:06 PM Cyrus Isaac MD IMG OUTSIDE INTERP RETATION ORDERABLES documented in this encounter Visit Diagnoses Diagnosis Neck mass Swelling, mass, or lump in head and neck documented in this encounter Care Teams Electrical Systems Designer Relationship Specialty Start Date End Date Wilfrid Peck MD [address] [place] [id number] PCP - General 10/09/10 documented as of this encounter
--- OUTSIDE RECORDS SUMMARY | 2024-08-16 18:23 | XMS_ITS | Encounter Summary ---
Author Organization [facility] Address [facility] [place] [address] Care Team Providers Care Swimming Coach Or Instructor Name Role Phone Wilfrid Peck MD Primary Care Provider + [phone] Encounter Details Date Type Department Care Team (Late st Contact Info) Description 06/12/2022 Orders [place] [address] Cyrus Isaac MD [facility] [place] [address] Cancer of base of tongue Social History [...] place to sleep or slept in a assisted (including now)? No 05/29/2022 Sex and Gender Information Value Date Recorded Sex Assigned at Not on file Gender Identity Not on file Sexual Orientation Not on file documented as of this encounter Progress Notes * Cyrus Isaac MD - 06/12/2022 3:05 PM EDT Spoke to patient and last night regarding the option for TORS tongue base resection and neck dissection. I reviewed his imaging, pathology, and endoscopic exams. He would be a good candidate forTORS. Reviewed the procedure, risks, side effects, perioperative course, need for adjuvant therapy based on final pathology. The patient would like to proceed and is comfortable with meeting me the day of surgery. He knows to call if he has any questions or would like to come in for a preoperative visit. documented in this encounter Plan of Treatment Not on file documented as of this encounter Visit Diagnoses Diagnosis Cancer of base of tongue Malignant neoplasm of base of tongue documented in this encounter Care Teams Swimming Coach Or Instructor Relationship Specialty Start Date End Date Wilfrid Peck MD [address] [place] [id number] PCP - General 10/09/10 documented as of this encounter
--- OUTSIDE RECORDS SUMMARY | 2024-08-16 18:23 | XMS_ITS | Encounter Summary ---
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 Procedures PRO LARYNGOSCOPY, DIRCT, OP SCOPE, BIOPSY LARYNGOSCOPY, MICROSCOPE, WITH BIOPSY (WRVU 3.55) Glen Esparza MD [facility] [place] [address] [facility] Referral ID Status Reason Start Date Expiration Date Visits Re quested Visits Authorized [id number] 1 1 Encounter Details Date Type Department Care Team (Late st Contact Info) Description 05/27/2022 7:32 AM EDT Anesthesia Event [place] [address] Tanmay Head MD [facility] [place] [address] Anesthesia Record Procedure Summary Procedure Name Responsible Anesthesiologist Anesthesia Start Time Anesthesia Stop Time LARYNGOSCOPY, MICROSCOPE, WITH BIOPSY (WRVU 3.55) (Throat) Tanmay Head MD 05/27/22 0732 05/27/22 0837 Events Date Time Event Comment 05/27/2022 0646 0732 AN Verify 0732 Start 0735 An Start Data 0745 An Induction 0746 Anesthesia Ready 0749 An Intubation 0827 Extubation/LMA Out 0830 an stop data 0837 Recovery or ICU Handoff Vida ent care was transferred to the destination unit staff after review of the patient's medical history, current anesthetic/surgical status and plan, according to the Provider Handoff Checklist. 0837 Stop Meds Name Total Midazolam 2 mg fentaNYL 100 mcg Propofol 450 mg ePHEDrine 5 mg Ondansetron 4 mg Dexamethasone 10 mg Lidocaine 4% LTA 4 mL ampicillin-sulbactam (Unasyn ) 1.5 g vial attach to sodium chloride 0.9% 50 mL Mini-Bag Plus 1.5 g acetaminophen (Tylenol) tablet 1,000 mg 1,000 mg Succinylcholine 100 mg Propofol INF 119.13 mg Dexmedetomidine 8 mcg Famotidine 20 mg lactated ringers infusion 800 mL * Agents Name O2 Air N2O Sevoflurane (et) * Blood No blood administrations on file. Lines, Drains, and Airways Type Details Placement Removal (RETIRED) Peripheral IV Line - Single Lumen 05/16/22; 0935; median cubital vein (antecubital fossa), right; [id number] catheter system; 22 gauge, 1 in length; tolerated well; LDA not present upon assessment; 05/27/22; 92605/16/22 09 by Wilfrid Kelly 05/27/22926 by Petra Malcolm, EUGENIE (RETIRED) Peripheral IV Line - Single Lumen 05/27/22; 0730; cqok-[id number] catheter system; Anatomical Landmarks; 20 gauge; distraction, tolerated well; no longer indicated, removed per policy/procedure, catheter/device intact; 05/27/2292605/27/22729 by Bere Coronado RN 05/27/22926 by Petra Malcolm, RN ETT Mask Ventilation: No t Attempted (0); ETT Type: Cuffed; ETT Size: 6 mm; Attempts: 1; ETT Placement Verified By: Capnometry; Secured at Teeth: 22 cm; Inserted by: surgeon after apneic look; Removal Date: 05/27/22; Removal Time: 82605/27/22 0749 by Ness Perdue CRNA 05/27/22826 by Ness Perdue CRNA documented in this encounter Social History Tobacco [...] OR Notes * Anesthesia Postprocedure Evaluation - Tanmay Head MD - 05/28/2022 10:10 AM EDT Department of Anesthesiology Post-procedure Note Patient: Feliciano Hill Procedure Summary Date: 05/27/22 Room / Location: 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 Patient Location: PACU/[facility] Level of Consciousness: Awake and Alert Pain Management: Satisfactory Analgesia PONV: None Cardiovascular Status: At Baseline and Hemodynamically Stable Respiratory Status: At Baseline and Room Air Postoperative Fluid Status: Intravascular EUvolemia Possible Anesthetic Complications: NONE apparent at time of evaluation Final Primary Anesthesia Type: General (The anesthetic type performed was the same as planned.) Comments: TANMAY HEAD MD * Anesthesia Preprocedure Evaluation - Tanmay Head MD - 05/27/2022 6:45 AM EDT Pre-Anesthesia Evaluation for: Feliciano Hill a 61 y.o. male. Procedure(s): LARYNGOSCOPY, MICROSCOPE, WITH BIOPSY (WRVU 3.55) Patient Active Problem List Diagnosis Date Noted ??? Lymphadenopathy of head and neck 03/29/2022 No past medical history on file. Past Surgical History: Procedure Laterality Date ??? IR FNA THYROID NODULE 05/07/2022 IR FNA Thyroid Nodule 05/07/[address] [facility] INTERVENTIONL RAD Social History Tobacco Use ??? Smoking status: Never Smoker ??? Smokeless tobacco: Never Used Substance Use Topics ??? Alcohol use: Not on file Social History Substance and Sexual Activity Drug Use Not on file No Known Allergies Medications: MAR and/or home medications have been reviewed. Physical Exam: Preprocedure Vitals Current as of 05/27/22 0645 BP: 137/83 Pulse: 52 Resp: 16 SpO2: 99 Temp: 36.4 ??C (97.5 ??F) Height: 190.5 cm (6' 3) (05/27/22) Weight: 95.3 kg (210 lb) (05/27/22) BMI: 26.25 IBW: 84.5 kg (186 lb 4.6 oz) Last edited 05/27/22625 by BLOSSOM Airway Assessment: Mallampati: II TM distance: >3 FB Cardiovascular Assessment: Rhythm: regular Pulmonary Assessment: unlabored breathing Dental Assessment: Misc Assessment: Last Filed Perioperative Cognitive Screening None Anesthesia Plan: ASA 2 general, with a(n) intravenous induction Region - Other Informed Consent: Anesthetic plan and risks discussed with patient. Plan discussed with COTTON WRINGER. Anesthesia Screening documented in this encounter Plan of Treatment Not on file documented as of this encounter Visit Diagnoses Not on filedocumented in this encounter Administered Medications Inactive Administered Medications - up to 3 most recent administrations Medication Order MAR Action Action Date Dose Rate Site acetaminophen (Tylenol) tablet 1,000 mg 1,000 mg, Oral, ONCE, 1 dose, On Fri05/27/22 at 0730, Maximum dose of acetaminophen is 4000 mg from all sources in 24 hours. When ordered for pain, acetaminophen should be given even when other ordered pain medications are indicated. , Day of Surgery (Day of Procedure), Routine Given 05/27/2022 7:32 AM EDT 1,000 mg ampicillin-sulbactam (Unasyn) 1.5 g vial attach to sodium chloride 0.9% 50 mL Mini-Bag Plus 1.5 g, Intravenous, 30 MIN PRE-OP, 1 dose, On Fri05/27/22 at 0700, Administer over 15 Minutes, Warning Vesicant/Irritant Medication , Day of Surgery (Day of Procedure), Indication for (Active or Suspected): Prophylaxis New Bag 05/27/2022 7:40 AM EDT 1.5 g dexAMETHasone (Decadron) injection Intravenous, PRN, Starting on Fri05/27/22 at 0750, Until Fri05/27/22 at 0954, Anesthesia Intra-op, Routine Given 05/27/2022 7:50 AM EDT 10 mg dexmedeTOMIDine (Precedex) (4 mcg/mL) bolus injection (Anesthsia) Intravenous, PRN, Starting on Fri05/27/22 at 0803, Until Fri05/27/22 at 0954, Anesthesia Intra-op, Routine Given 05/27/2022 8:03 AM EDT 8 mcg ePHEDrine sulfate (5 mg/mL) multi-dose injection Intravenous, PRN, Starting on Fri05/27/22 at 0759, Until Fri05/27/22 at 0954, Anesthesia Intra-op, Routine Given 05/27/2022 7:59 AM EDT 5 mg famotidine (Pepcid) (10 mg/mL) injection Intravenous, PRN, Starting on Fri05/27/22 at 0732, Until Fri05/27/22 at 0954, Anesthesia Intra-op, Routine Given 05/27/2022 7:32 AM EDT 20 mg fentaNYL (pf) (50 mcg/mL) multi-dose injection Intravenous, PRN, Starting on Fri05/27/22 at 0738, Until Fri05/27/22 at 0954, Anesthesia Intra-op, Routine Given 05/27/2022 7:38 AM EDT 50 mcg Given 05/27/2022 7:36 AM EDT 50 mcg lactated ringers infusion 1,000 mL, at 100 mL/hr, Intravenous, CONTINUOUS, Starting on Fri05/27/22 at 0715, Until Fri05/27/22 at 0928, Day of Surgery (Day of Procedure) New Bag 05/27/2022 7:32 AM EDT lidocaine (XYLOCAINE) 4 % external solution Intratracheal, PRN, Starting on Fri05/27/22 at 0755, Until Fri05/27/22 at 0954, Anesthesia Intra-op Given 05/27/2022 7:55 AM EDT 4 mLs midazolam (pf) (Versed) (1 mg/mL) multi-dose injection Intravenous, PRN, Starting on Fri05/27/22 at 0736, Until Fri05/27/22 at 0954, Anesthesia Intra-op, Routine Given 05/27/2022 7:38 AM EDT 1 mg Given 05/27/2022 7:36 AM EDT 1 mg ondansetron (pf) (Zofran) (2 mg/mL) injection Intravenous, PRN, Starting on Fri05/27/22 at 0750, Until Fri05/27/22 at 0954, Anesthesia Intra-op, Routine Given 05/27/2022 7:50 AM EDT 4 mg propofoL (Diprivan) (10 mg/mL) infusion Intravenous, CONTINUOUS PRN, Starting on Fri05/27/22 at 0750, Until Fri05/27/22 at 0954, Anesthesia Intra-op, Routine New Bag 05/27/2022 7:50 AM EDT 50 mcg/kg/min 28.59 mL/hr propofoL (Diprivan) 10 mg/mL bolus injection (Anesthesia) Intravenous, PRN, Starting on Fri05/27/22 at 0755, Until Fri05/27/22 at 0954, Anesthesia Intra-op Given 05/27/2022 8:03 AM EDT 50 mg Given 05/27/2022 7:55 AM EDT 200 mg Given 05/27/2022 7:45 AM EDT 200 mg succinylcholine (Anectine;Quelicin) (20 mg/mL) injection Intravenous, PRN, Starting on Fri05/27/22 at 0745, Until Fri05/27/22 at 0954, Anesthesia Intra-op, Routine Given 05/27/2022 7:45 AM EDT 100 mg documented in this encounter Care Teams Economics Analyst Relationship Specialty Start Date End Date Wilfrid Peck MD [address] [place] [id number] PCP - General 10/09/10 documented as of this encounter
--- OUTSIDE RECORDS SUMMARY | 2024-08-16 18:23 | XMS_ITS | Encounter Summary ---
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 Glen Esparza MD [facility] [place] [address] Stj Rad Onc Office [address] [place] [phone] Referral ID Status Reason Start Date Expiration Date V isits Requested Visits Authorized [id number] Closed Consult, Test & Treat 05/16/2022 05/16/2023 1 1 Encounter Details Date Type Department Care Team (Late st Contact Info) Description 05/29/2022 10:00 AM EDT Office Visit Radiation Oncology at [address] [phone] Forest Grey MD [facility] [place] [address] Squamous cell carcinoma of right tonsil Social History Tobacco Use Types Packs/Day Years [...] Sign Reading Time Taken Comments Blood Pressure 120/80 05/29/2022 10:13 AM EDT Pulse 89 05/29/2022 10:13 AM EDT Temperature 36.8 ??C (98.2 ??F) 05/29/2022 1 0:13 AM EDT Respiratory Rate 20 05/29/2022 10:1 3 AM EDT Oxygen Saturation 100% 05/29/2022 10: 13 AM EDT Inhaled Oxygen Concentration - - Weight 97.7 kg (215 lb 6.4 oz) 05/29/20 22 10:13 AM EDT with shoes Height - - Body Mass Index 26.92 05/27/2022 6:26 AM EDT documented in this encounter Progress Notes * Forest Grey MD - 05/29/2022 10:00 AM EDT Images from the original note were not included. Radiation Oncology New Patient Visit PATIENT NAME: Feliciano Hill DATE OF : 1960 HISTORY OF PRESENT ILLNESS Feliciano Hill is a 61 y.o. 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 After resolution of COVID, the right upper neck mass persistedand did not resolve. He saw his PCP and the patient was then referred to a general surgeon at [facility]. He underwent a CT scan of the neck which revealed a cystic mass in right level II, and saw Dr. Esparza on 05/16/22. Further staging as noted below. Staging & Therapy CT HN w/ contrast 03/14/22: at the right level 2A leeann station is a septated cystic lesion measuring 3.6 cm transverse, 3.5 cm AP and 4.9 cm craniocaudal. Mild asymmetric fullness of the right palatine tonsil. FNA right level II neck mass, 05/14/22: Compatible with squamous cell carcinoma. PET-CT 05/16/22: Focal asymmetric FDG avidity seen in the region the right tonsil with slight asymmetric fullness. Interval mild decrease in the complex cystic mass at the right level 2A leeann station, with scattered peripheral and somewhat nodular FDG avidity along its inferior extent, favored to represent necrotic lymphadenopathy. No distant sites of metastases identified. EUA with NPL, and biopsy, 05/27/22: -Findings: small sub centimeter lesion of the right lateral base of tongue. Prominent R vs left palatine tonsil. -Path: A - Right palatine tonsil, excision: ?? - Benign ??tonsil-type mucosa. B - Right lateral lingual tonsil, biopsy: ?? - Squamous cell carcinoma, nonkeratinizing, p16 positive, HPV-mediated. C - Left palatine tonsil, biopsy: ?? - Benign tonsil-type mucosa. Other Pertinent Issues: None Currently, he has the following symptoms: Symptom Description Ongoing Intervention Oropharyngeal Pain Denies Dysphagia Denies Xerostomia / Dysgeusia Denies Otalgia Denies Dental Issues / Trismus Recent dental visit, sees dentist twice yearly. Nutritional Intake Eating Normal Diet PEG Not present Neck Pain Denies Neck Fibrosis / Lymphedema Denies HN sensory Changes Denies HN strength Changes Denies Voice Changes Denies Social Issues Travels 30 minutes to [facility] Tobacco / EtOH Not currently smoking. Nightly beer, been habit since twenties. Total Pack Years < 5 PY in high school. Other No Issues ECOG PS: 0 Grade ECOG PERFORMANCE STATUS 0 Fully active, able to carry on all pre-disease performance without restriction 1 Restricted in physically strenuous activity but ambulatory and able to carry out work of a light or sedentary nature 2 Ambulatory and capable of all selfcare but unable to carry out any work activities; up and about > 50% of waking hours 3 Capable of only limited selfcare; confined to bed or chair more than 50% of waking hours 4 Completely disabled; cannot carry on any selfcare; totally confined to bed or chair EXAM There were no vitals filed for this visit. Physical Exam Constitutional: Appearance: He is well-developed. HENT: Mouth/Throat: Comments: Visual inspection of OC and OP reveals an exophytic mass in the right tonsil, with escharc/w prior biopsy. No extension to soft palate, tongue base, or RMT. Left tonsillar biopsy site evident. Palpation revealed no suspicious masses and no induration along the posterior tongue. Moisture good. Pt with teeth in good repair. Eyes: Pupils: Pupils are equal, round, and reactive to light. Neck: Comments: Palpation reveals an ~ 3 cm node, right level II, mobile. Otherwise no adenopathy in cervical, SCLV, ICLV leeann basins. Cardiovascular: Rate and Rhythm: Normal rate. Pulmonary: Effort: Pulmonary effort is normal. Breath sounds: Normal breath sounds. Skin: Findings: No erythema. Neurological: Mental Status: He is alert and oriented to person, place, and time. Cranial Nerves: No cranial nerve deficit. Psychiatric: Behavior: Behavior normal. PROCEDURE Stream connect reviewed HISTORY Allergies as of 05/29/2022 ??? (No Known Allergies) No past medical history on file. Past Surgical History: Procedure Laterality Date ??? IR FNA THYROID NODULE 05/07/2022 IR FNA Thyroid Nodule 05/07/2022 Cyrus Tran MD [facility] INTERVENTIONL RAD ??? PRO LARYNGOSCOPY, DIRCT, OP SCOPE, BIOPSY N/A 05/27/2022 LARYNGOSCOPY, MICROSCOPE, WITH BIOPSY (WRVU 3.55) performed by Glen Esparza MD at [facility] MAIN OR Social History Socioeconomic History ??? Marital status: Spouse name: Not on file ??? Number of children: Not on file ??? Years of education: Not on file ??? Highest education level: Not on file Occupational History ??? Not on file Tobacco Use ??? Smoking status: Never Smoker ??? Smokeless tobacco: Never Used Substance and Sexual Activity ??? Alcohol use: Not on file ??? Drug use: Not on file ??? Sexual activity: Not on file Other Topics Concern ??? Not on file Social History Narrative ??? Not on file Social Determinants of Health Financial Resource Strain: Not on file Food Insecurity: Not on file Transportation Needs: Not on file Physical Activity: Not on file Housing Stability: Not on file No family history on file. ROS: I reviewed and agree with the nursing review of systems accompanying this encounter. The remainder of the comprehensive review of systems was negative with the exception of the pertinent positives and negatives noted above. MEDICATIONS Current Outpatient Medications on File Prior to Visit Medication Sig Dispense Refill ??? acetaminophen (Tylenol) 325 mg Tablet Take 2 tablets by mouth every 4 hours as needed for Pain.30 tablet 0 ??? ibuprofen (Motrin) 400 mg Tablet Take 1 tablet by mouth every 6 hours as needed for Pain. 30 tablet 0 ??? lisinopril-hydrochlorothiazide (PRINZIDE;ZESTORETIC) 10-12.5 mg Tablet take 1 tablet by mouth once daily 0 ??? atorvastatin (LIPITOR) 20 mg Tablet take 1 tablet by mouth once daily 0 No current facility-administered medications on file prior to visit. IMAGING I have personally reviewed the imaging reports and images referenced in the oncologic hx and agree with the assessment as stated. Further pertinent imaging data below LABORATORY VALUES CONTRAINDICATIONS TO RADIOTHERAPY NO YES: Date, site, dose (women only) X Prior Radiotherapy X Collagen-Vascular dz X ASSESSMENT /PLAN HN CANCER Staging CT HN PET-CT EUA w/ DL ; Pathologic evaluation of the primary Further Staging None Required Therapy Discussion Feliciano Hill has been referred to discuss radiotherapy in his care. He has a Stage I HPV-associated right tonsillar malignancy with minimal smoking history. There may be concern for MARTELL associatedwith his node, and we will review imaging at HN TB. We discussed the relative risks and benefits ofradiotherapy and surgical therapy in detail. He may be a candidate for [facility] HN005 and we discussed that as well. he has not been discussed at [facility] tumor board and we will do so. We discussed the rationale and logistics (including simulation, planning, and treatment) of definitive radiotherapy. We discussed the risks of therapy, including but not limited to short term sequelae (fatigue, skin erythema, mucositis, dysphagia, ageusia, xerostomia, weight loss) and termite technician sequelae (tissue fibrosis, lymphedema, senior care dysphagia potentially requiring a permanent feeding tube, xerostomia, osteoradionecrosis, increased risk of dental caries, esophageal stricture, and the possibility of significant damage to soft tissue, bone or skin requiring surgical or medical intervention). Mr. Hill expressed an understanding of these risks. The patient had a number of questions regarding optimal therapy and potential side effects. These questions were answered to his satisfaction Concurrent chemotherapy recommendations: to discuss with medical oncology Therapy Decision Await HN TB, patient decision Supportive Care Prophylactic feeding tube: TBD Referral to Chassis Inspector / APPIAN DEVELOPER Dental Issues: to obtain dental clearance OTHER ISSUES None * Kelle Catherine RN - 05/29/2022 10:00 AM EDT RADIATION ONCOLOGY NURSING INITIAL NURSING ASSESSMENT IDENTIFICATION: Feliciano Hill is a 61 y.o. year-old male with SCCa of the head and neck with unknown primary. PRESENTING SYMPTOMS/CHIEF COMPLAINT: Presented with right neck mass. REVIEW OF SYSTEMS: Review of Systems Constitutional: Positive for unexpected weight change (about 5 pounds). Negative for appetite change. Please see ROS filed by patient. IN THE PAST 12 MONTHS HAVE YOU: Fallen more than one time? No Injured yourself as result of the fall? n/a Experienced difficulty with walking/problems with balance? No Do you use any assistive devices? No Any history of collagen vascular diseases:No Any Implanted Devices/Hardware: No If yes please put alert in ARIA patient summary Prior Radiotherapy: no Prior Chemotherapy: no Prior Hormone Therapy: no LEARNING ASSESSMENT REVIEWED: Yes ADVANCED DIRECTIVE: PAIN ASSESSMENT: 0 out of 10 *eD-H Adult PCS Flow Sheet if 4 or above SOCIAL ASSESSMENT: See [facility] social assessment information entered. Support Systems: Here today with Loretta. Barriers to treatment: None identified by patient. 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 Referrals/Interventions: CHARGE PREPARATION TECHNICIAN per routine RADIATION SPECIFIC TEACHING: [facility] Radiation Therapy and You Site specific teaching : Head and neck teaching to be done by nursing on day of simulation. Other: PLAN: Per Dr. Grey Answers for HPI/ROS submitted by the patient on 05/29/2022 Distress: 3 documented in this encounter Plan of Treatment Not on file documented as of this encounter Visit Diagnoses Diagnosis Squamous cell carcinoma of right tonsil Malignant neoplasm of tonsil documented in this encounter Care Teams Test Car Driver Relationship Specialty Start Date End Date Wilfrid Peck MD [address] [address] PCP - General 10/09/10 documented as of this encounter
--- OUTSIDE RECORDS SUMMARY | 2024-08-16 18:23 | XMS_ITS | Encounter Summary ---
Author Organization [facility] [place] [address] Care Team Providers Care Special Certificate Dictator Name Role Phone Wilfrid Peck MD Primary Care Provider [phone] Encounter Details Date Type Department Care Team (Late st Contact Info) Description 05/17/2022 Telephone Otolaryngology at [facility] [place] [phone] Nano Dumont Social History Tobacco Use Types Packs/Day Years Used Date Smoking Tobacco: Never Smokeless Tobacco: Never Sex and Gender Information Value Date Recorded Sex Assigned at Not on file Gender Identity Not on file Sexual Orientation Not on file documented as of this encounter Miscellaneous Notes * Telephone Encounter - Nano Dumont - 05/17/2022 4:38 PM EDT Lamont, Patient is scheduled to have surgery on 05/27/2022 and the packet has been mailed to the verified address on file. Follow up appointment is as follows: Follow-up visit: 1 week postop with coordinated visits with medical oncology and radiation oncology. Orders have been signed Thank you!! documented in this encounter Plan of Treatment Not on file documented as of this encounter Visit Diagnoses Not on filedocumented in this encounter Care Teams Special Certificate Dictator Relationship Specialty Start Date End Date Wilfrid Peck MD [address] [place] [id number] PCP - General 10/09/10 documented as of this encounter
--- OUTSIDE RECORDS SUMMARY | 2024-08-16 18:23 | XMS_ITS | Encounter Summary ---
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 Glen Esparza MD [facility] [place] [address] [facility] Hem Onc [address] [place] [address] Referral ID Status Reason Start Date Expiration Date V isits Requested Visits Authorized [id number] Closed Consult, Test & Treat 05/16/2022 05/16/2023 1 1 Encounter Details Date Type Department Care Team (Late st Contact Info) Description 06/06/2022 9:30 AM EDT Office Visit Hematology [place] [address] Joe Leger MD [address] [place] [address] [place] [address] Blaire Castro APRN [facility] [address] [place] [address] Tonsil cancer Social History Tobacco Use Types Packs/Day Years [...] Sign Reading Time Taken Comments Blood Pressure 143/75 06/06/2022 9:24 AM EDT Pulse 55 06/06/2022 9:24 AM EDT Temperature 36.7 ??C (98.1 ??F) 06/06/2022 9:24 AM ED T Respiratory Rate 18 06/06/2022 9:24 AM EDT Oxygen Saturation 98% 06/06/2022 9:24 AM EDT Inhaled Oxygen Concentration - - Weight 96.4 kg (212 lb 9.6 oz) 06/06/2022 9:24 A M EDT Height 190.3 cm (6' 2.92) 06/06/2022 9:24 AM ED T Body Mass Index 26.63 06/06/2022 9:24 AM EDT documented in this encounter Progress Notes * Joe Leger MD - 06/06/2022 9:30 AM EDT Head and Neck Cancer Medical Oncology Patient Active Problem List Diagnosis ??? Tonsil cancer cT1 N1 M0, p16(+), trivial tobacco history ??? Lymphadenopathy of head and neck CC: referred for medical oncology consultation by Dr. Esparza. The patient is a healthy 61-year-old who contracted COVID-19 in the early part of 2021. With this he noted development of painless right neck adenopathy. The adenopathy did not resolve with resolution of the other signs and symptoms of his infection. He was referred to a general surgeon at [facility]. A CT scan was then done showing a cystic right neck mass. There was concern for a branchial cleft cyst. He was referred to Dr. Esparza who saw him in mid March. On his exam there was subtle asymmetry of the palatine tonsils. Further investigation included a PET/CT and plans to go to the operating room for laryngoscopy with biopsies. The PET/CT was informative in the right neck with s ubtle findings in the right tonsil. Laryngoscopy was performed 05/27 showing again prominence of theright more than the left palatine tonsil and a subcentimeter lesion of the right lateral base of tongue. The right lateral tongue base proved positive for p16 positive squamous cell carcinoma. He was referred to me into Dr. Forest Mo of radiation oncology for discussion of chemoradiationas 1 treatment option. His case was reviewed at head and neck tumor board this morning, and transoral robotic surgery is being considered as another option. He feels entirely well with no dysphagia, odynophagia, obstructive or aspiration symptoms. He is up-to-date with dental checkups. He denies hearing problems or peripheral neuropathy. He has no major comorbidities. He is on medication for high blood pressure. He lives in the [facility] area with his . 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 He has a very trivial tobacco exposure history, a distant history of less than 5 pack years. Physical exam: He looks well, in good spirits Oral exam shows no trismus, fully mobile tongue. There is a very subtle thickness to the right palatine tonsil, but no obvious mass lesion. Neck exam shows a right mid neck node approximately 2 cm. It is mobile and nontender. The lungs are clear Cardiac exam is normal Abdomen is benign without hepatosplenomegaly Extremities normal, no clubbing cyanosis or edema Neurologic exam is normal including cranial nerves. Reflexes 2+ Imaging: CT scan demonstrates a partially cystic septated right neck mass consistent with exam; there is no clear sign of extracapsular tumor extension. PET/CT confirms the above, with very subtle uptake in the right tonsil. There are no signs of metastases. I see only a single right-sided neck node with central photopenia on the scan. Pathology: P16 positive nonkeratinizing squamous cell carcinoma in the right lateral lingual tonsilbiopsy Impression: Healthy 61-year-old non-smoker presents with an early stage right lingual tonsil cancerwith low-volume ipsilateral neck adenopathy. Plan: We had a long talk about the natural history of this cancer, and our treatment options. He isalready learned quite a bit of the pouch the cancer and its treatment from Dr. Tommie Grey radiation oncology, and I only filled in a few gaps in his knowledge and give a bit more detail about the chemotherapy we sometimes use. We talked quite a bit about the option for transoral robotic resection, and I think he is a good candidate for this. He understands that there is some uncertainty involved with proceeding with surgery, namely that we may find pathologic indications to give him postoperative radiation or radiation plus chemotherapy. He is inclined towards the surgical approach, and will be checking in later today with otolaryngology about this option. I have not made a follow-up appointment but would be happy to see him if he needs additional information or if we need to proceed with chemotherapy as part of his treatment. Joe Leger MD, FACP magazine journalist Hematology/Oncology Section [place] [phone] Voice recognition software used for this note; please excuse clock assembler errors. I personally reviewed past medical, surgical, family medical histories, reviewed current medications, vital signs, labs, and performed full review of systems. These are documented below the narrativefor clarity and succinctness. Outpatient Medications Marked as Taking for the 06/06/22 encounter (Office Visit) with Ej Leger MD Medication Sig Dispense Refill ??? UNABLE TO FIND Poten C ??? UNABLE TO FIND Nattokinase Plus ??? UNABLE TO FIND Glucomic DMG ??? KRILL OIL ORAL Take by mouth. ??? ergocalciferol, vitamin D2, (VITAMIN D ORAL) Take by mouth. ??? cyanocobalamin, vitamin B-12, (VITAMIN B-12 ORAL) Take by mouth. ??? ascorbic acid (VITAMIN C ORAL) Take by mouth. ??? UNABLE TO FIND Healthy Veins ??? lisinopril-hydrochlorothiazide (PRINZIDE;ZESTORETIC) 10-12.5 mg Tablet take 1 tablet by mouth once daily 0 Past Medical History: Diagnosis Date ??? Hypercholesterolemia Past Surgical History: Procedure Laterality Date ??? IR FNA THYROID NODULE 05/07/2022 IR FNA Thyroid Nodule 05/07/2022 Cyrus Tran MD [facility] INTERVENTIONL RAD ??? PRO LARYNGOSCOPY, DIRCT, OP SCOPE, BIOPSY N/A 05/27/2022 LARYNGOSCOPY, MICROSCOPE, WITH BIOPSY (WRVU 3.55) performed by Glen Esparza MD at [facility] MAIN OR History reviewed. No pertinent family history. Social History Socioeconomic History ??? Marital status: Spouse name: Not on file ??? Number of children: Not on file ??? Years of education: Not on file ??? Highest education level: Not on file Occupational History ??? Not on file Tobacco Use ??? Smoking status: Never Smoker ??? Smokeless tobacco: Never Used Vaping Use ??? Vaping Use: Never used Substance and Sexual Activity ??? Alcohol use: Not on file ??? Drug use: Never ??? Sexual activity: Not on file Other Topics Concern ??? 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 Difficulty of Paying Living Expenses: Not very hard Food Insecurity: Unknown ??? Worried About Running Out of Food in the Last Year: Never true ??? Ran Out of Food in the Last Year: Not on file Transportation Needs: No Transportation Needs ??? Lack of Transportation (Medical): No ??? Lack of Transportation (Non-Medical): No Physical Activity: Not on file Housing Stability: Low Risk ??? Unable to Pay for Housing in the Last Year: No ??? Number of Places Lived in the Last Year: 1 ??? Unstable Housing in the Last Year: No Review of Systems: Review of systems is negative for other BRISKET PULLER, bone, pulmonary, cardiac, GI, , extremity, neurologic, endocrine, skin, constitutional, emotional, or functional problems. Vitals Flowsheet Row Office [place] 06/06/2022 in [place] [facility] [place] Weight 96.4 kg (212 lb 9.6 oz) Height 190.3 cm (6' 2.92) BSA (Calculated - sq m) 2.26 sq meters BMI (Calculated) 26.63 Temp 36.7 ??C (98.1 ??F) Temp src Temporal Heart Rate 55 Heart Rate Source Monitor Resp 18 BP 143/75 BP Location Right arm Patient Position Sitting SpO2 98 % Body surface area is 2.26 meters squared. Wt Readings from Last 3 Encounters: 06/06/22 96.2 kg (212 lb) 06/06/22 96.4 kg (212 lb 9.6 oz) 05/29/22 97.7 kg (215 lb 6.4 oz) No results found for this or any previous visit (from the past 72 hour(s)). ++++++++++++++++++++++++++++++++++++++++++++++++++++ documented in this encounter Plan of Treatment Not on file documented as of this encounter Visit Diagnoses Diagnosis Tonsil cancer Malignant neoplasm of tonsil documented in this encounter Care Teams Entry Level Financial Analyst Relationship Specialty Start Date End Date Wilfrid Peck MD [address] [place] [id number] PCP - General 10/09/10 documented as of this encounter
--- OUTSIDE RECORDS SUMMARY | 2024-08-16 18:23 | XMS_ITS | Encounter Summary ---
Author Organization Counts Include [facility] Address [facility] [place] [address] Care Team Providers Care Qc Tech Name Role Phone Wilfrid Peck MD Primary Care Provider + [phone] Encounter Details Date Type Department Care Team (Late st Contact Info) Description 04/16/2022 Orders [place] [address] Martell Camargo PA [facility] [place] [address] Neck mass Social History Tobacco Use Types Packs/Day Years Used Date Smoking Tobacco: Never Smokeless Tobacco: Never Sex and Gender Information Value Date Recorded Sex Assigned at Not on file Gender Identity Not on file Sexual Orientation Not on file documented as of this encounter Plan of Treatment Not on file documented as of this encounter Visit Diagnoses Diagnosis Neck mass Swelling, mass, or lump in head and neck documented in this encounter Care Teams Qc Tech Relationship Specialty Start Date End Date Wilfrid Peck MD [address] [place] [address] PCP - General 10/09/10 documented as of this encounter
--- OUTSIDE RECORDS SUMMARY | 2024-08-16 18:23 | XMS_ITS | Encounter Summary ---
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 Procedures PRO LARYNGOSCOPY, DIRCT, OP SCOPE, BIOPSY LARYNGOSCOPY, MICROSCOPE, WITH BIOPSY (WRVU 3.55) Marco Esparza MD [facility] [place] [address] [facility] Referral ID Status Reason Start Date Expiration Date Visits Re quested Visits Authorized [id number] 1 1 Encounter Details Date Type Department Care Team (Latest Contact Info) Description 05/27/2022 6:08 AM EDT - 05/27/2022 9:36 AM EDT Hospital Encounter [place] [address] Marco Esparza MD [facility] [place] [address] Discharge Disposition: Home Social History Tobacco Use Types Packs/Day Years Used Date Smoking Tobacco: Never Smokeless Tobacco: Never Sex and Gender Information Value Date Recorded Sex Assigned at Not on file Gender Identity Not on file Sexual Orientation Not on file documented as of this encounter Last Filed Vital Signs Vital Sign Reading Time Taken Comments Blood Pressure 148/83 05/27/2022 9:15 AM EDT Pulse 59 05/27/2022 9:15 AM EDT Temperature 36.4 ??C (97.5 ??F) 05/27/2022 8:33 AM ED T Respiratory Rate 16 05/27/2022 9:15 AM EDT Oxygen Saturation 95% 05/27/2022 9:15 AM EDT Inhaled Oxygen Concentration - - Weight 95.3 kg (210 lb) 05/27/2022 6:26 AM EDT Height 190.5 cm (6' 3) 05/27/2022 6:26 AM EDT Body Mass Index 26.25 05/27/2022 6:26 AM EDT documented in this encounter Discharge Instructions * Patient Instructions* Katheryn Juarez MD - 05/27/2022 8:25 AM EDT Instructions for Patient at Discharge: What to expect: Laryngoscopy After a laryngoscopy, you may experience sore throat, some painful swallowing, and brief change in voice. You can use pain medications for sore throat in addition to over the counter agents such as Chloraseptic, Menthol cough drops/lozenges, honey, tea, and warm or cool drinks as tolerated for easethe sore throat. Since we took biopsies, you may have some bleeding from the mouth, however, if this does not resolve within 24-36 hours or becomes sachin active bright red bleeding that does not stop, please call theoffice or check with your local ED to be evaluated. Medications: Pain Control - use acetaminophen (Tylenol) and/or ibuprofen (Motrin, Advil) as needed. You can take 500 mg to 650 mg of Tylenol every 4-6 hours as needed. Do not exceed 4g acetaminophen per day and do not drink alcohol while taking tylenol. You can also take 400 to 600 mg of Ibuprofen (Motrin,Advil) every 6 hours as needed. Constipation - Consider the use of OTC Senna/Docusate, Miralax, Metamucil, prune juice or various suppositories if you have any constipation (especially if related to narcotic/opoid related pain medication) Activity: A good rule of thumb is if it hurts don't do it. Keep your head elevated when lying flat. No heavy lifting or straining for the next week. No smoking, this is important for wound healing. Diet: Resume baseline diet You should call your doctor if you develop: -Increasing pain and redness -Increasing drainage from the wound -Fever > 38.5Celsius or 101 Fahrenheit -Bleeding Contact: -You can reach the ENT clinic at [phone] for appointment questions. -The ENT triage nurse is available at [phone] -For urgent issues during evenings (5 PM - 7 AM) and weekends the ENT resident inspector publications can be reached through the main hospital white mixing operator at [phone] Follow Up: You will need to follow up with ENT. This appointment has been requested. You will be notified onceit is scheduled, if you do not already see it below. If you do not hear from us in a timely manner,please call to receive your date and time. Currently Scheduled Appointments and VNA instructions: Future Appointments and Orders Future Appointments and Orders Future Appointments Provider Department Dept Phone 05/29/2022 9:[address] A[facility] Steve Radiation Oncology at [facility] Arrive at: [facility] door at end of hallway [phone] 05/29/2022 10:00 AM Forest Grey MD Radiation Oncology at [facility] Arrive at: [facility] door at end of hallway [phone] 06/06/2022 9:00 AM Marco Esparza MD [place] [facility] at: [facility] [phone] 06/06/2022 10:00 AM Blaire Castro APRN; Joe Leger MD Hematology and Oncology at [facility] [place]rive at: House [facility]ant Area 3K [phone] documented in this encounter Medications at Time of Discharge Medication Sig Dispensed Refills Start Date End Date acetaminophen (Tylenol) 325 mg Tablet Take 2 tablets by mouth every 4 hours as needed for Pain. 30 tablet 05/27/2022 07/24/2022 ibuprofen (Motrin) 400 mg Tablet Take 1 tablet by mouth every 6 hours as needed for Pain. 30 tablet 05/27/2022 07/24/2022 lisinopril-hydrochlorot hiazide (PRINZIDE;ZESTORETIC) 10-12.5 mg Tablet Take 1 tablet by mouth daily. 0 02/19/2019 07/24/2022 atorvastatin (LIPITOR) 20 mg Tablet take 1 tablet by mouth once daily 0 03/18/2019 07/18/2022 documented as of this encounter Progress Notes * Petra Malcolm RN - 05/27/2022 9:14 AM EDTSummary: pt status Patient awake and alert. States mild pain to throat. Able to swallow water and soft food with minimum discomfort. AVS reviewed with patient and spouse and written copy of handout provided. No immediate concerns. documented in this encounter H&P Notes * Katheryn Juarez MD - 05/27/2022 7:06 AM EDT OTOLARYNGOLOGY - HEAD & NECK SURGERY INTERVAL H&P NOTE Name: Feliciano Hill Age/Sex: 61 y.o. male Attending: Marco Esparza MD Hospital Day: 1 Day of Surgery Interval History Please see clinic/scanned H&P dated 05/16. In brief, Feliciano Hill presents today for laryngoscopy and biopsies. There have been no changes to his history. Patient denies symptoms of COVID, exposure to COVID or any known COVID contacts. Physical Exam Patient Vitals for the past 24 hrs: Temp Pulse Resp BP SpO2 05/27/22 0626 36.4 ??C (97.5 ??F) 52 16 137/83 99 % Gen: No acute distress, alert and answers questions appropriately CV: Regular rate Pulm: Unlabored breathing Abd: Abdomen soft and non-tender Ext: No peripheral edema ASSESSMENT & PLAN Plan for laryngoscopy and biopsies. Consent signed, dated, placed in chart Ok to proceed with scheduled operation. 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 Prominent R vs left palatine tonsil. Grade 1 view, easy exposure. NOrmal laryngoscopy Complications: none Intake: Intraprocedure Crystalloid Total Intake lactated ringers infusion 800.00 mL Famotidine 2.00 mL ampicillin-sulbactam (Unasyn) 1.5 g vial attach to sodium chloride 0.9% 50 mL Mini-Bag Plus 50.00 mL Total Intake 852 mL Output Blood Loss 2 mL Total Output 2 mL Net Net Volume 850 mL Transfusion No data found in the last 1 encounters. 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 No Disposition: awakened from anesthesia, extubated and taken to the recovery room in a stable condition, having suffered no apparent untoward event. Condition: doing well without problems Attestation: Case Date: 05/27/2022 I was present and I participated during the entire procedure (does not need to include opening and closing). (Please see the Surgical Encounter Summary for any Implant and Specimen details pertinent to this patient.) Surgical Infection Prevention Bundle Used? 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 Prominent right vs left palatine tonsil. Grade 1 view, easy exposure. 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 No Drains: n/a Surgical Closure: n/a Disposition: awakened from anesthesia, extubated and taken to the recovery room in a stable condition, having suffered no apparent untoward event. Condition: doing well without problems (Please see the Surgical Encounter Summary for any Implant and Specimen details pertinent to this patient.) HPI/Surgical Indications: Feliciano Hill is a 61 y.o. male with a PMH of tobacco use who had a several month history of level 2 and 3 lymphadenopathy of the right neck as well as concern for a lesion along the right base of tongue presenting for a direct laryngoscopy and biopsies. Procedure Description: The patient was taken to the operating room, placed in the supine position, and general anesthesia was achieved without complication. The bed was turned 90 degrees and the patient was prepped for themicro laryngoscopy. A tooth guard was placed and the Arvind laryngoscope was used to expose the larynx with visual assistance from the 0 and 30 degree hilario telescopes, camera and tower. Evaluation of the supraglottic, glottic, and subglottic regions showed no evidence of any tumor. The piriform sinuses are unremarkable. The subglottis also showed normal mucosa of the trachea. Patient was intubated with an endotracheal tube at this time without issue. Otherwise the rest of the findings as above. The tooth guard and arvind were then removed and the oral cavity examined in detail since the patient did not tolerate evaluation in the office. There were areas of concern along bilateral palatinetonsils and right floor of mouth. Biopsies were taken of each of those locations. Hemostasis was obtained with topical adrenalin soaked pledgets. All counts were correct at the end of the case. Patient was then turned back to anesthesia. Surgical Infection Prevention Bundle Used? N/A Attestation: Case Date: 05/27/2022 I was present and I participated during the entire procedure (does not need to include opening and closing). 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 ??Separate Pathology report to follow Marco Esparza MD PATHOLOGY/CYTOLOGY ORDERABLES Performing Organization Address City/[facility]/[place] [address] * Specimen to Pathology (05/27/2022 8:09 AM EDT) AP Specimen 05/27/2022 8:09 AM EDT 05/27/2022 8:09 AM EDT Narrative [facility] - 05/27/2022 8:09 AM EDT Specimen requisition ordered. ??Separate Pathology report to follow Marco Esparza MD PATHOLOGY/[place] [address] * Specimen to Pathology (05/27/2022 8:02 AM EDT) AP Specimen 05/27/2022 8:02 AM EDT 05/27/2022 8:02 AM EDT Narrative [facility] - 05/27/2022 8:02 AM EDT Specimen requisition ordered. ??Separate Pathology report to follow Marco Esparza MD PATHOLOGY/CYTOLOGY ORDERABLES [facility] [place] [place] [address] * Surgical Pathology Report (05/27/2022 8:01 AM EDT) Final Diagnosis [id number] ? Location: [facility]; [facility]; The signing pathologist has (i) examined the relevant preparation(s) for the specimen(s) and (ii) rendered or confirmed the diagnosis(es). . ?Surgical Pathology DIAGNOSIS A - Right palatine tonsil, excision: ??- Benign ??tonsil-type mucosa. B - Right lateral lingual tonsil, biopsy: ??- Squamous cell carcinoma, nonkeratinizing, p16 positive, HPV-mediated. C - Left palatine tonsil, biopsy: ??- Benign tonsil-type mucosa. Electronically signed by: ?MD Cale, Fernando Duran Verified: ??05/29/2022 17:37 ??Pathologist Performed at: ??-[facility] 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 Block ? Antibody ?Result (Positive/Negative) B1 ? 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 Quantity/Size: Fragments, 0.2-0.4 cm. Tissue Description: Melgar-pink soft tissue. Sections/Processing: Entirely submitted in 1 cassette labeled A1. B - Labeled/Fixative: Right lateral lingual tonsil, fresh. Quantity/Size: Two, 0.4 and 0.5 cm. Tissue Description: Melgar-pink soft tissues. Sections/Processing: Entirely submitted in 1 cassette labeled B1. C - Labeled/Fixative: Left palatine tonsil, fresh. . SPECIMEN PROCESSING Quantity/Size: Three, averaging 0.4 cm. Tissue Description: Melgar-pink soft tissues. Sections/Processing: Entirely submitted in 1 cassette labeled C1. ??pps 05/29/2022 5:37 PM EDT [facility] BILATERAL PALATINE TONSILS / Unknown 05/27/2022 8:01 AM EDT 05/27/2022 8:01 AM EDT BILATERAL PALATINE TONSILS / Unknown 05/27/2022 8:01 AM EDT 05/27/2022 8:01 AM EDT BILATERAL PALATINE TONSILS / Unknown 05/27/2022 8:01 AM EDT 05/27/2022 8:01 AM EDT Marco Esparza MD PATHOLOGY/CYTOLOGY ORDERABLES [facility] [place] [address] documented in this encounter Visit Diagnoses Not on filedocumented in this encounter Administered Medications Inactive Administered Medications - up to 3 most recent administrations Medication Order MAR Action Action Date Dose Rate Site oxyCODONE (Roxicodone) tablet 5-10 mg 5-10 mg, Oral, EVERY 3 HOURS PRN, Starting on Fri05/27/22 at 0826, Until Fri05/27/22 at 1136, Pain, Give 5 mg for pain 1-5; Give 10 mg for pain 6-10, Routine documented in this encounter Active and Recently Administered Medications Times are shown in EDT. Scheduled Medication Order 05/25/2022 05/26/2022 05/27/2022 acetaminophen (Tylenol) tablet 1,000 mg (COMPLETED) 1,000 mg, Oral, ONCE, 1 dose, On Fri05/27/22 at 0730, Maximum dose of acetaminophen is 4000 mg from all sources in 24 hours. When ordered for pain, acetaminophen should be given even when other ordered pain medications are indicated. , Day of Surgery (Day of Procedure), Routine 0732 (Given - Provid er: Ness Perdue CRNA) ampicillin-sulbactam (Unasyn) 1.5 g vial attach to sodium chloride 0.9% 50 mL Mini-Bag Plus (COMPLETED) 1.5 g, Intravenous, 30 MIN PRE-OP, 1 dose, On Fri05/27/22 at 0700, Administer over 15 Minutes, Warning Vesicant/Irritant Medication , Day of Surgery (Day of Procedure), Indication for (Active or Suspected): Prophylaxis 0740 (New Bag - Prov ider: Ness Perdue CRNA) Continuous Medication Order 05/25/2022 05/26/2022 05/27/2022 lactated ringers infusion (CANCELED) 1,000 mL, at 100 mL/hr, Intravenous, CONTINUOUS, Starting on Fri05/27/22 at 0715, Until Fri05/27/22 at 0928, Day of Surgery (Day of Procedure) 0732 (New Bag - Prov ider: Ness Perdue CRNA)0735 (Anesthesia Volume Adjustment - Provider: Ness Perdue CRNA)0745 (Anesthesia Volume Adjustment - Provider: Ness Perdue CRNA)0830 (Anesthesia Volume Adjustment - Provider: Ness Perdue CRNA) PRN Medication Order 05/25/2022 05/26/202205/2705/27/2022 EPINEPHrine (Adrenalin) nasal solution (CANCELED) ONCE PRN, Starting on Fri05/27/22 at 0753, Until Fri05/27/22 at 1136, Intra-Operative (Intra-Procedure), Routine 0753 (Given - Provid er: Marco Esparza MD - Comment: Soaked on Surgical patties on field) oxyCODONE (Roxicodone) tablet 5-10 mg 5-10 mg, Oral, EVERY 3 HOURS PRN, Starting on Fri05/27/22 at 0826, Until Fri05/27/22 at 1136, Pain, Give 5 mg for pain 1-5; Give 10 mg for pain 6-10, Routine silver nitrate applicator topical stick (CANCELED) ONCE PRN, Starting on Fri05/27/22 at 0810, Until Fri05/27/22 at 1136, Intra-Operative (Intra-Procedure), Routine 0810 (Given - Provid er: Marco Esparza MD - Comment: in larynx) documented in this encounter Care Teams Bariatric Nurse Relationship Specialty Start Date End Date Wilfrid Peck MD [address] [place] [id number] PCP - General 10/09/10 documented as of this encounter
--- OUTSIDE RECORDS SUMMARY | 2024-08-16 18:23 | XMS_ITS | Encounter Summary ---
Author Organization [facility] Address [facility] [address] Care Team Providers Care Lpc Name Role Phone Wilfrid Peck MD Primary Care Provider [phone] Encounter Details Date Type Department Care Team (Late st Contact Info) Description 04/10/2022 Notes [place] [address] Martell Camargo PA [facility] [place] [address] Social History Tobacco Use Types Packs/Day Years Used Date Smoking Tobacco: Never Smokeless Tobacco: Never Sex and Gender Information Value Date Recorded Sex Assigned at Not on file Gender Identity Not on file Sexual Orientation Not on file documented as of this encounter Progress Notes * Martell Camargo PA - 04/10/2022 1:08 PM EDT Opened in error. documented in this encounter Plan of Treatment Not on file documented as of this encounter Visit Diagnoses Not on filedocumented in this encounter Care Teams Lpc Relationship Specialty Start Date End Date Wilfrid Peck MD [address] [place] [address] PCP - General 10/09/10 documented as of this encounter
--- OUTSIDE RECORDS SUMMARY | 2024-08-16 18:23 | XMS_ITS | Encounter Summary ---
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 Venous insufficiency of lower extremity, unspecified laterality Social History Tobacco Use Types Packs/Day Years Used Date Smoking Tobacco: Never Assessed Sex and Gender Information Value Date Recorded Sex Assigned at Not on file Gender Identity Not on file Sexual Orientation Not on file documented as of this encounter Plan of Treatment Not on file documented as of this encounter Results * LE Unilateral Valvular Incomp Study (06/03/2019 8:54 AM EDT) VB Text Report Department: Vascular Surgery Lab Patient: [id number] (FELICIANO TAVARES) CPT: 90898 ICD10: I87.2;I83.813 Referring Physician: BRI WILSON ?? Indications: 58 year old male with bilateral lower extremity venous insufficiency L>R, ? extent of reflux on LEFT ICD10 Diagnosis Code: I87.2, I83.813 Findings: Common Femoral Vein, Left ? Reflux?: Competent Femoral Vein, Left ? Reflux?: Competent Popliteal, Left ? Reflux?: Competent GSV, Near SFJ, Left ? Reflux?: Reflux ? Diameter (mm): 7.9 ? Depth (mm): 6.2 GSV, Proximal Thigh, Left ? Reflux?: Reflux ? Diameter (mm): 6.7 ? Depth (mm): 5.9 GSV, Mid Thigh, Left ? Reflux?: Reflux ? Diameter (mm): 6.4 ? Depth (mm): 7.2 GSV, Distal Thigh, Left ? Reflux?: Reflux ? Diameter (mm): 6.7 ? Depth (mm): 5.4 GSV, ??Knee, Left ? Reflux?: Reflux ? Diameter (mm): 5.1 ? Depth (mm): 6.7 GSV Prox Calf, Left ? Reflux?: Reflux ? Diameter (mm): 5.1 ? Depth (mm): 2.3 GSV, Mid Calf, Left ? Reflux?: Reflux ? Diameter (mm): 5.6 ? Depth (mm): 2.4 GSV, Distal Calf, Left ? Reflux?: Reflux ? Diameter (mm): 3.8 ? Depth (mm): 3.2 SSV, Left ? Reflux?: Competent ? Thrombus?: NON-OCCLUSIVE THROMBUS Interpretation: LEFT: Non-occlusive superficial vein thrombus of indeterminate age in the small saphenous vein in the upper calf. No reflux identified in the SSV on today's exam. Superficial vein reflux >3.5 seconds in the great saphenous vein from the level of the saphenofemoral junction to the distal calf. The GSV in the mid/distal thigh is very tortuous. There are incompetent varicose veins associated with the GSV through the calf. No significant reflux noted in the common femoral vein, femoral vein in the thigh, or the popliteal vein. No evidence of common femoral, femoral, or popliteal DVT. No evidence of superficial (GSV) vein thrombus on today's exam. Comparison: No previous study in our vascular lab database for comparison. Electronically Signed by: JEFFREY ALVARADO on 2019-06-04 05:39:49 PM VASCUBASE VB Text Report End of Report VASCUBASE 06/03/2019 8:54 AM EDT Bri Wilson MD VASCULAR ORDERABLES VASCU[facility] documented in this encounter Visit Diagnoses Diagnosis Venous insufficiency of lower extremity, unspecified laterality documented in this encounter Care Teams Commercial Glazier Relationship Specialty Start Date End Date Bri Peck MD [address] [place] [id number] PCP - General 10/09/10 documented as of this encounter
--- OUTSIDE RECORDS SUMMARY | 2024-08-16 18:23 | XMS_ITS | Encounter Summary ---
Author Organization [facility] Address [facility] [place] [address] Care Team Providers Care Supervisor Braiding Name Role Phone Wilfrid Peck MD Primary Care Provider [phone] Encounter Details Date Type Department Care Team (Latest Contact Info) Description 05/30/2022 Multidisciplinary Ca re Committee [place] [address] Glen Esparza MD [facility] [place] [address] Social History Tobacco Use Types Packs/Day Years [...] place to sleep or slept in a custodial (including now)? No 05/29/2022 Sex and Gender Information Value Date Recorded Sex Assigned at Not on file Gender Identity Not on file Sexual Orientation Not on file documented as of this encounter Plan of Treatment Not on file documented as of this encounter Visit Diagnoses Not on filedocumented in this encounter Care Teams Supervisor Braiding Relationship Specialty Start Date End Date Wilfrid Peck MD [address] [place] [address] PCP - General 10/09/10 documented as of this encounter
--- OUTSIDE RECORDS SUMMARY | 2024-08-16 18:23 | XMS_ITS | Encounter Summary ---
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 Glen Esparza MD [facility] [place] [address] [facility] Rad Onc Office [address] [place] [phone] Referral ID Status Reason Start Date Expiration Date V isits Requested Visits Authorized [id number] Closed Consult, Test & Treat 05/16/2022 05/16/2023 1 1 * Consultation (Routine) - Closed Specialty Diagnoses / Procedures Referred By Contac t Referred To Contact Hematology and Oncology Diagnoses 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 Glen Esparza MD [facility] [place] [address] [facility] Hem Onc [address] [place] [address] Referral ID Status Reason Start Date Expiration Date V isits Requested Visits Authorized [id number] Closed Consult, Test & Treat 05/16/2022 05/16/2023 1 1 Encounter Details Date Type Department Care Team (Late st Contact Info) Description 05/16/2022 2:20 PM EDT Office [place] [address] Glen Esparza MD [facility] [place] [address] 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 Subjective Patient ID: Feliciano Hill is a 61 y.o. male. HPI Feliciano Hill is seen in follow-up of his right upper cystic mass x3 months Reasonably healthy 61-year-old male, former smoker who developed COVID in November 2021 apparently with some cervical lymphadenopathy. Following his recovery from his symptoms from this illness, he was noticed to have a persistent right upper neck mass which did not resolve. This was brought to the attention of his PCP and patient was then referred to a general surgeon at [facility]. He underwent a CT scan of the neck which I personally reviewed and patient was referred here for management. There is concern for a branchial cleft cyst. The patient reports no prior history of a neck mass. He does not recall having any particular neck injury. He has no recent history of travel and he denies any fevers, chills, nor sweats. He denies any intraoral lesion and has not had any dental infections. He denies any oral bleeding or lesion. There is no change in his voice or breathing. He denies any dysphagia, referred otalgia, or odynophagia. He denies any voice change. He has no prior history of alcoholism and denies the use of IV drugs. He does smoke marijuana on occasion. On examination in the office, he had fullness as well as ballotable mobile nontender masses of levels 2 and 3 of the right neck and endoscopy and physical examination had slight asymmetry of the right versus the left palatine tonsil. On flexible laryngoscopy, there was a small papilliform type lesion in the right base of tongue. We had plan to arrange for a PET/CT but due to insurance coverage had to perform an FNA of his neck mass for diagnosis. This was completed on May 07 and the patient contacted about the results showing: DIAGNOSIS Positive for Malignancy Electronically signed by: ?Greg Lal MD Verified: ??05/14/2022 18:19 ??Cytopathologist Performed at: ??-[facility] Dept. of Pathology, [place], [place] DISCUSSION Soft tissue: 2A neck mass (FNA) - Compatible with squamous cell carcinoma. Recommend clinical correlation. Drs. Floyd and Tee have reviewed the case and concur with the diagnosis. --- Immunohistochemistry Studies --- Interpretation: ?Immunohistochemical assays were performed (on paraffin-embedded cell block ??sections fixed in 10% neutral buffered formalin for 6-72 hours) using the polymer ??technique with appropriate controls. The sections are studied for p40, CK5/6, p16, ??and LCA. The lesional cells are immunoreactive for CK5/6; they are negative for p40 ??and LCA. The result of the p16 stain is equivocal. These immunohistochemical studies provide ancillary information and are used only in ??conjunction with standard diagnostic procedures. Patient has subsequently completed a PET/CT earlier today. He denies any new symptoms. He is somewhat concerned about neck step of management. He denies any new symptoms. Denies any hemoptysis or sore throat No past medical history on file. Past Surgical History: Procedure Laterality Date ??? IR FNA THYROID NODULE 05/07/2022 IR FNA Thyroid Nodule 05/07/2022 Cyrus Tran MD [facility] INTERVENTIONL RAD Current Outpatient Medications: ??? lisinopril-hydrochlorothiazide (PRINZIDE;ZESTORETIC) 10-12.5 mg Tablet, take 1 tablet by mouth once daily, Disp: , Rfl: 0 ??? atorvastatin (LIPITOR) 20 mg Tablet, take 1 tablet by mouth once daily, Disp: , Rfl: 0 No current facility-administered medications for this visit. No Known Allergies Patient Active Problem List Diagnosis Code ??? Lymphadenopathy of head and neck R59.1 No family history on file. There is no pertinent family history of otolaryngologic problems. There is a family history of cancer in his family Review of Systems: A complete review of constitutional, eyes, cardiovascular, respiratory, GI, , musculo-skeletal, skin, endocrine, psychiatric, hematologic, lymphatic and immunologic systems is completed and is as noted in the HPI. All other systems are otherwise negative. Social History Socioeconomic History ??? 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 Constitutional: General: He is not in acute distress. Appearance: Normal appearance. He is well-developed. He is not diaphoretic ( Normal voice and breathing. No gurgling of secretions). HENT: Head: Normocephalic. Jaw: There is normal jaw occlusion. No trismus. Salivary Glands: Right salivary gland is not diffusely enlarged or tender. Right Ear: Tympanic membrane, ear canal and external ear normal. No tenderness. No middle ear effusion. Left Ear: Tympanic membrane, ear canal and external ear normal. No tenderness. No middle ear effusion. Nose: Nose normal. No nasal deformity, septal deviation or mucosal edema. Mouth/Throat: Lips: No lesions. Mouth: No oral lesions. Dentition: Normal dentition. Tongue: No lesions. Palate: No mass. Pharynx: Uvula midline. No oropharyngeal exudate. Eyes: General: No scleral icterus. Conjunctiva/sclera: Conjunctivae normal. Pupils: Pupils are equal, round, and reactive to light. Neck: Thyroid: No thyroid mass or thyromegaly. Vascular: No carotid bruit. Trachea: No tracheal deviation. Pulmonary: Effort: Pulmonary effort is normal. No respiratory distress. Breath sounds: No stridor. Musculoskeletal: Cervical back: Normal range of motion and neck supple. Lymphadenopathy: Cervical: No cervical adenopathy ( Rubbery 3.5 x 4 cm nontender mass of zone 2 of the right neck. No other palpable adenopathy). Skin: General: Skin is warm. Findings: No erythema. Neurological: Mental Status: He is alert and oriented to person, place, and time. Cranial Nerves: No cranial nerve deficit. Deep Tendon Reflexes: Reflexes are normal and symmetric. Psychiatric: Behavior: Behavior normal. Thought Content: Thought content normal. Judgment: Judgment normal. PET/CT done earlier today reviewed with patient and his showing the following: HEAD/NECK: Focal asymmetric FDG avidity seen in [...] Slight dextroconvex curvature of the lumbar spine. 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 The plan afterwards will be to take him to the OR for microlaryngoscopy and mapping biopsies. We discussed that it is easier with the patient asleep to complete the evaluation as well as perform biopsies Would then review with him the options of treatment. In view of the extracapsular spread of the leeann masses, he may not be a candidate for robotic surgery. He is in agreement to proceed. 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
--- OUTSIDE RECORDS SUMMARY | 2024-08-16 18:23 | XMS_ITS | Encounter Summary ---
Author Organization [facility] [place] [address] Care Team Providers Care Loading Machine Tool Setter Name Role Phone Wilfrid Peck MD Primary Care Provider [phone] Encounter Details Date Type Department Care Team (Late st Contact Info) Description 05/16/2022 Patient Outreach Otolaryngology at [facility] [place] [id number] Delia Zazueta RN Social History Tobacco Use Types Packs/Day Years Used Date Smoking Tobacco: Never Smokeless Tobacco: Never Sex and Gender Information Value Date Recorded Sex Assigned at Not on file Gender Identity Not on file Sexual Orientation Not on file documented as of this encounter Progress Notes * Delia Zazueta RN - 05/16/2022 3:58 PM EDT [facility] Oncology Nurse Navigation Patient Intake & Care Plan Met with Feliciano Hill, who has a diagnosis of SCCa of the head and neck with unknown primary, [facility]. Present during this interview is Loretta. Reviewed Head & Neck symptoms, PMH, lifestyle choices, and dental care. Assessed for transportation, financial, social, and practical barriers to care. Concerns noted in Barriers/Interventions below. Denies neck pain. Endorses frequent throat clearing and mild hoarseness after drinking alcohol. Never smoker. Enjoys biking and going to the gym. Has seen the same dentist every six months for the last 30 years. Recently had one tooth extracted, but reports generally good dentition. 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 They do nothave immediate concerns regarding finances, health insurance, or transportation. Good questions regarding treatment options and treatment schedules. Outlined main ancillary services available to help support patient, including Social Work, Psycho Onc, Nutrition, CHOCOLATE FINISHER OPERATOR, and PT. Reviewed general timeline of both non-surgical management and surgery with adjuvant treatment, emphasizing the importance of early dental extractions, if needed. Also discussed long-term follow-up schedule. If non-surgical or adjuvant treatment is needed, patient would prefer [facility]. PLAN: ??? EUA per Vilma ??? Request MedOnc and RadOnc referrals from Dr. Esparza ??? Tumor Board after path results ??? Patient to contact dentist to discuss pre-radiation dental evaluation Nurse Navigator Barriers and Interventions Assessment Barriers Barriers 05/16/2022 Informational Educational/informational resources;Literacy/health literacy;Incomplete information (staging, images, test results) Interventions Interventions 05/16/2022 Informational Literature/online resources;Supportive service referral/education Discuss with Provider EUA, MedOnc and RadOnc referrals Head and Neck Oncology Nurse Navigator is [facility], RN. documented in this encounter Plan of Treatment Not on file documented as of this encounter Visit Diagnoses Not on filedocumented in this encounter Care Teams Loading Machine Tool Setter Relationship Specialty Start Date End Date Wilfrid Peck MD [address] [place] [address] PCP - General 10/09/10 documented as of this encounter
--- OUTSIDE RECORDS SUMMARY | 2024-08-16 18:23 | XMS_ITS | Encounter Summary ---
Author Organization [facility] [place] [address] Care Team Providers Care Sail Maker Name Role Phone Wilfrid Peck MD Primary Care Provider [phone] Encounter Details Date Type Department Care Team (Late st Contact Info) Description 04/02/2022 Telephone Otolaryngology at [facility] [place] [id number] Tiffanie Soares Social History Tobacco Use Types Packs/Day Years Used Date Smoking Tobacco: Never Smokeless Tobacco: Never Sex and Gender Information Value Date Recorded Sex Assigned at Not on file Gender Identity Not on file Sexual Orientation Not on file documented as of this encounter Miscellaneous Notes * Telephone Encounter - Tiffanie Soares - 04/02/2022 2:12 PM EDT Patient is scheduled for next avail PET that will coord with Dr Esparza. Patient is very eager to have this done roland and the notes said to be done soon. Patient said he will go wherever he needs togo to get a scan [place]. I advised him I would check other locations like [place] and also check with Dr. Esparza to see if April 25 is ok. Future Appointments Date Time Provider Department Center 04/25/2022 11:00 AM [facility] NM PET HOLD MH Nuc Med [facility] Rad 04/25/2022 12:00 PM [facility] NM PET 1 MH Nuc Med MH Rad 04/25/2022 4:00 PM Glen Esparza MD [facility] * Telephone Encounter - Tiffanie Soares - 04/02/2022 1:38 PM EDT Current weight? 215 Is the patient diabetic? NO Is the patient claustrophobic? NO Does the patient have a mediport? NO documented in this encounter Plan of Treatment Not on file documented as of this encounter Visit Diagnoses Not on filedocumented in this encounter Care Teams Sail Maker Relationship Specialty Start Date End Date Wilfrid Peck MD [address] [place] [id number] PCP - General 10/09/10 documented as of this encounter
--- OUTSIDE RECORDS SUMMARY | 2024-08-16 18:23 | XMS_ITS | Encounter Summary ---
Author Organization [facility] Address [facility] [place] [address] Care Team Providers Care Synthetic Soil Blocks Pulper Name Role Phone Wilfrid Peck MD Primary Care Provider + [phone] Encounter Details Date Type Department Care Team (Late st Contact Info) Description 03/14/2022 Orders [place] [address] Martell Camargo PA [facility] [place] [address] Neck mass Social History Tobacco Use Types Packs/Day Years Used Date Smoking Tobacco: Never Assessed Smokeless Tobacco: Never Sex and Gender Information Value Date Recorded Sex Assigned at Not on file Gender Identity Not on file Sexual Orientation Not on file documented as of this encounter Plan of Treatment Not on file documented as of this encounter Results * Request For 2nd [...] who have questions please contact the health home care attendant that requested your imaging first. ? Narrative 03/14/2022 1:06 PM EDT EXAMINATION: REQUEST FOR 2ND READ CT NECK CLINICAL HISTORY: Right multi-eptated cystic neck mass felt to be possible plunging ranula; malignancy not excluded.; Sending Institution [facility]; Date of exam 20220228; I believe [...] plunging ranula; malignancy not excluded.; Sending Institution [facility]; Date of exam 20220228; I believe [...] patients who have questions please contactthe health home care attendant that requested your imaging first. Cyrus Isaac MD IMG OUTSIDE INTERP RETATION ORDERABLES documented in this encounter Visit Diagnoses Diagnosis Neck mass Swelling, mass, or lump in head and neck Neck mass Swelling, mass, or lump in head and neck documented in this encounter Care Teams Synthetic Soil Blocks Pulper Relationship Specialty Start Date End Date Wilfrid Peck MD [address] [place] [address] PCP - General 10/09/10 documented as of this encounter
--- OUTSIDE RECORDS SUMMARY | 2024-08-16 18:23 | XMS_ITS | Encounter Summary ---
Author Organization 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 Procedures NM PET CT Standard Plus Head and Neck Martell Camargo PA [facility] [place] [address] [place] [address] Referral ID Status Reason Start Date Expiration Date V isits Requested Visits Authorized [id number] Denied Specialty Service Requested 05/15/2022 11/14/2023 1 0 Reason for Visit * Diagnostic Test (Routine) - Denied Specialty Diagnoses / Procedures Referred By Contac t Referred To Contact Radiology Diagnoses 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 Procedures NM PET CT Standard Plus Head and Neck Martell Camargo PA [facility] [place] [address] [facility] [place] [address] Referral ID Status Reason Start Date Expiration Date V isits Requested Visits Authorized [id number] Denied Specialty Service Requested 05/15/2022 11/14/2023 1 0 Encounter Details Date Type Department Care Team (Latest Contact Info) Description 05/16/2022 9:27 AM EDT Hospital En[place] [address] Glen Esparza MD [facility] [place] [address] 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 ??Asymmetric FDG avid focus in the right tonsillar region with slight asymmetric fullness on CT, suspicious for malignancy. 2. ??Mild decrease in right level 2A suspected necrotic leeann metastasis. 3. ??No distant sites of metastases identified. 4. ??Heterogeneous CT attenuation of the right lobe of the liver, favored probably artifactual related to beam hardening artifact from the patient's arms; for further evaluation/confirmation, ultrasound is suggested. Thank you for letting us participate in the care of this patient. ??If you are a health care provider and have any questions regarding this report, please contact the number below. ??For patients who have questions please contact the health primary care nurse practitioner that requested your imaging first. ? Electronically signed by: Fani Steven MD, [facility] ([phone]), at 05/16/2022 5:51 PM Narrative 05/16/2022 5:51 PM EDT EXAMINATION: NM PET CT STANDARD PLUS HEAD AND NECK CLINICAL HISTORY: Head/neck cancer, staging TECHNIQUE: Following IV injection of 37-zetcby-3-deoxyglucose (FDG) a standard uptake of approximately 60 minutes, a noncontrast CT scan followed by a PET scan were acquired from the top of head to mid thighs. The noncontrast CT was used for anatomic localization and photon attenuation correction of the PET scan. No oral contrast was administered. Blood glucose level: 114 (mg/dL) FDG dose: 14.5 mCi COMPARISON: Contrast-enhanced neck CT 02/28/2022 from outside institution FINDINGS: HEAD/NECK: Focal asymmetric FDG avidity seen in [...] soft tissue regions the neck and head. CHEST: Normal activity in all soft tissue regions. Incidental bilateral dependent atelectasis, coronary artery calcifications. ABDOMEN/PELVIS: Normal activity in all soft tissue regions CT evaluation of the upper abdomen is limited by beam hardening artifact from the patient's arms. Apparent heterogeneous attenuation in the right lobe of the liver. Tiny fat-containing umbilical hernia. Right lateral bladder diverticulum. Colonic diverticulosis without acuity. SKELETON/EXTREMITIES: Degenerative uptake in the lower lumbar spine. Normal activity in all other regions of the axial and visualized appendicular skeleton. CT visualized small sclerotic focus in the intertrochanteric region of the right femur is favored to represent a bone island. Slight dextroconvex curvature of the lumbar spine. Procedure Note Fani Steven MD - 05/16/2022 EXAMINATION: NM PET CT STANDARD PLUS HEAD AND NECK CLINICAL HISTORY: Head/neck cancer, staging TECHNIQUE: Following IV injection of 07-jvdfvx-5-deoxyglucose (FDG) astandard uptake of approximately 60 minutes, a noncontrast CT scan followed by aPET scan were acquired from the top of head to mid thighs. The noncontrast CT wasused for anatomic localization and photon attenuation correction of the PETscan. No oral contrast was administered. Blood glucose level: 114 (mg/dL) FDG dose: 14.5 mCi COMPARISON: Contrast-enhanced neck CT 02/28/2022 from outside institution FINDINGS: HEAD/NECK: Focal asymmetric FDG avidity seen in the region the right tonsil withslight asymmetric fullness noted anatomically (axial image 72). Interval mild decrease in the complex cystic mass at the right level 2Anodal station, with scattered peripheral and somewhat nodular FDG avidity alongits inferior extent, favored to represent necrotic lymphadenopathy. At asimilar level as measured on the comparison CT, this currently measuresapproximately 32 mm AP x 32 mm transverse (axial CT image 77) x 40 mm craniocaudal ascompared to 35 x 36 x 49 mm previously. Normal activity in all other soft tissue regions the neck and head. CHEST: Normal activity in all soft tissue regions. Incidental bilateral dependent atelectasis, coronary arterycalcifications. ABDOMEN/PELVIS: Normal activity in all soft tissue regions CT evaluation of the upper abdomen is limited by beam hardening artifactfrom the patient's arms. Apparent heterogeneous attenuation in the right lobeof the liver. Tiny fat-containing umbilical hernia. Right lateral bladderdiverticulum. Colonic diverticulosis without acuity. SKELETON/EXTREMITIES: Degenerative uptake in the lower lumbar spine. Normal activity in allother regions of the axial and visualized appendicular skeleton. CT visualizedsmall sclerotic focus in the intertrochanteric region of the right femur isfavored to represent a bone island. Slight dextroconvex curvature of the lumbarspine. IMPRESSION 1. Asymmetric FDG avid focus in the right tonsillar region with slight asymmetric fullness on CT, suspicious for malignancy. 2. Mild decrease in right level 2A suspected necrotic leeann metastasis. 3. No distant sites of metastases identified. 4. Heterogeneous CT attenuation of the right lobe of the liver, favored probably artifactual related to beam hardening artifact from the patient'sarms; for further evaluation/confirmation, ultrasound is suggested. Thank you for letting us participate in the care of this patient. If youare a health care provider and have any questions regarding this report,please contact the number below. For patients who have questions please contactthe health primary care nurse practitioner that requested your imaging first. 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 documented in this encounter Administered Medications Inactive Administered Medications - up to 3 most recent administrations Medication Order MAR Action Action Date Dose Rate Site fludeoxyglucose (F-18) FDG injection 0-20 mCi 0-20 mCi, Intravenous, ONCE PRN, 1 dose, Starting on Blank 05/16/22 at 0957, Until Blank 05/16/22 at 0941, Per Protocol, Radiology Contrast, Routine Given 05/16/2022 9:41 AM EDT 14.5 mCi documented in this encounter Care Teams Explosives Engineer Relationship Specialty Start Date End Date Wilfrid Peck MD [address] [place] [address] PCP - General 10/09/10 documented as of this encounter
--- OUTSIDE RECORDS SUMMARY | 2024-08-16 18:23 | XMS_ITS | Encounter Summary ---
Author Organization [facility] Address [facility] [place] [address] Care Team Providers Care Firer Tunnel Kiln Name Role Phone Wilfrid Peck MD Primary Care Provider [phone] Reason for Visit * Diagnostic Test (Routine) - Closed Specialty Diagnoses / Procedures Referred By Contfior t Referred To Contact Radiology Diagnoses Neck mass Procedures IR FNA Thyroid Nodule IR Biopsy Soft Tissue Neck IR All Biopsy Procedures Martell Camargo PA [facility] [address] [facility] [place] [address] Referral ID Status Reason Start Date Expiration Date V isits Requested Visits Authorized [id number] Closed Specialty Service Requested 04/16/2022 10/16/2023 1 1 Encounter Details Date Type Department Care Team (Latest Contact Info) Description 05/07/2022 8:06 AM EDT - 05/07/2022 11:59 PM EDT Hospital [place] [address] Cyrus Isaac MD [facility] [place] [address] Neck mass Discharge Disposition: Home Social History Tobacco Use [...] Procedure Name Priority Date/Time Associated Diagnosis Comments IR FNA THYROID NODULE Routine 05/07/2022 9:07 AM EDT Neck mass DIFFERENTIAL BODY FLUID, MANUAL Routine 05/07/2022 9:00 AM EDT BODY FLUID HOLD Routine 05/07/2022 9:00 AM EDT NON-ACCOUNT DEVELOPMENT ASSOCIATE FINAL REPORT Routine 05/07/2022 9:00 AM EDT CELL COUNT BODY FLUID Routine 05/07/2022 9:00 AM EDT CYTOPATHOLOGY NON-GYNECOLOGICAL Routine 05/07/2022 8:09 AM EDT documented in this encounter Results * IR FNA Thyroid Nodule (05/07/2022 9:07 AM EDT) Anatomical Region Laterality Modality Neck X-Ray Angiograph y Impressions 05/08/2022 9:46 AM EDT Technically successful ultrasound-guided fine-needle aspiration of a right neck mass Operators: COUNSELOR CAMP: Bing Kahn APRN Attending: Dr. Tran was present throughout this procedure Procedure performed by Bing Kahn APRN Thank you for letting us participate in the care of this patient. ??If you are a health care provider and have any questions regarding this report, please contact the number below. ??For patients who have questions please contact the health managed care coordinator that requested your imaging first. ? Electronically signed by: Cyrus Tran MD, [facility] ([phone]), at 05/08/2022 9:46 AM Narrative 05/08/2022 9:46 AM EDT NEURORADIOLOGY PROCEDURE NOTE Procedure: US-guided FNA biopsy of a right neck mass Indication for Procedure: Right neck mass concerning for metastatic disease.; Exam/Procedure requested: Image guided biopsy for diagnosis. Consent: After discussing the risks (including infection, hemorrhage, damage to surrounding structures, nondiagnostic biopsy) and benefits, the patient consented to the procedure. Technique: Prior to beginning the procedure, a standard Time Out was performed. The patient was in the supine position. ??Initial grayscale and color Doppler images of the parotid gland were used to localize the target and surrounding structures. The skin was prepped and draped in the usual sterile fashion. Local anesthesia provided with less than 5 mL of 1% lidocaine. Under ultrasound guidance, 3 fine-needle aspirations were performed utilizing 25-gauge needles. Once sufficient samples were collected, the procedure was ended. The patient tolerated the procedure well. Medications: Lidocaine 1% <5 mL SQ EBL: <5 cc Complications: No immediate Specimens: 3 fine-needle aspirations of the right ??parotid lesion Findings: Preprocedure ultrasound images demonstrated a 2.5 x4cm mixed cystic/solid right neck mass. Position of the needle tip was confirmed in the target lesion by ultrasound. Cyrus Isaac MD [facility] IR ORDERABLES * Non-Carton Gluing Machine Operator Final Report (05/07/2022 9:00 AM EDT) Diagnosis Discussion [id number] ? Location: [facility] The signing pathologist has (i) examined the relevant preparation(s) for the specimen(s) and (ii) rendered or confirmed the diagnosis(es). . ? Non-Carton Gluing Machine Operator Final DIAGNOSIS Positive for Malignancy Electronically signed by: ?Greg Lal MD Verified: ??05/14/2022 18:19 ??Cytopathologist Performed at: ??-[facility] [place], [place], [place] DISCUSSION Soft tissue: 2A neck mass (FNA) - Compatible with squamous cell carcinoma. Recommend clinical correlation. Drs. Floyd and Tee have reviewed the case and concur with the diagnosis. --- Immunohistochemistry Studies --- Interpretation: ? Immunohistochemical assays were performed (on paraffin-embedded cell block sections fixed in 10% neutral buffered formalin for 6-72 hours) using the polymer technique with appropriate controls. The sections are studied for p40, CK5/6, p16, and LCA. The lesional cells are immunoreactive for CK5/6; they are negative for p40 and LCA. The result of the p16 stain is equivocal. These immunohistochemical studies provide ancillary information and are used only in conjunction with standard diagnostic procedures. 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 Clinical Impression : Large right level 2A soft tissue neck mass suspicious for malignancy/ ?metastatic disease. Pertinent Radiologic Findings ??: (not provided) Gross Description: Received ??in CytoLyt, approximately 30 mL total volume of ?? cloudy, colorless fluid, with light flecks. Total Preparation: Liquid-Based Prep 1; Cell Block 1. 05/14/2022 6:19 PM EDT [facility] NECK STRUCTURE / Unknown 05/07/2022 9:00 AM EDT 05/07/2022 9:00 AM EDT Martell QUEVEDO PATHOLOGY/CYTOLOGY O RDERAMATHEUS [facility] [place] [address] * Differential Body Fluid, Manual (05/07/2022 9:00 AM EDT) Polymorph % Man 64 % [facility] Comment: Polymorphonuclear cell percent and absolute values may contain Neutrophils, Eosinophils, and Basophils. Body fluid smear will be scanned manually for concordance. Mononuc % Man 36 % [facility] Comment: Mononuclear cell percent and absolute values may contain Lymphocytes and Monocytes. Body fluid smear will be scanned manually for concordance. Polymorph ABS Man 8,116 /[facility] Comment: Polymorphonuclear cell percent and absolute values may contain Neutrophils, Eosinophils, and Basophils. Body fluid smear will be scanned manually for concordance. Mononuc ABS Man 4,566 /[facility] Comment: Mononuclear cell percent and absolute values may contain Lymphocytes and Monocytes. Body fluid smear will be scanned manually for concordance. Tot Diff Ct BF 193 Cells [facility] Other Other / Unknown 05/07/2022 9 :00 AM EDT 05/07/2022 1:33 PM EDT Narrative Resulting Agency Comment Spec In Lab Bing Kahn APRN BODY FLUIDS AND S TOOLS ORDERABLES [facility] [place] [address] * Cell Count Body Fluid (05/07/2022 9:00 AM EDT) Body Fluid Source Other [facility] Color, Fld Yellow [facility] Appearance, Fld Cloudy [facility] WBC Count, Fld 12,682 /[facility] Comment: Body Fluid was manually performed due to quality of specimen. The reported WBC value may include mesothelial cells-lining cells. Results may be inaccurate due to presence of many degenerated cells Counts may be inaccurate due to presence of debris All body fluid results should always be interpreted in light of the total clinical presentation of the patient, including clinical history, data from additional tests and other appropriate information. Other Other / Unknown 05/07/2022 9 :00 AM EDT 05/07/2022 1:33 PM EDT Narrative Resulting Agency Comment Spec In Lab Bing Kahn COUNSELOR CAMP BODY FLUIDS AND S TOOLS ORDERABLES Performing Organization Address City/[facility]/ZIP Co de Phone Number [facility] [place] [address] * Body Fluid HOLD (05/07/2022 9:00 AM EDT) HOLD, FLD Sample in lab. [facility] Body Fld Other / Unknown 05/07/2022 9 :00 AM EDT 05/07/2022 9:21 AM EDT Martell Camargo PA BODY FLUIDS AND STOO LS ORDERABLES Performing Organization Address [facility]/ZIP Co de Phone Number [facility] [place] [address] * Cytopathology Non-Gynecological (05/07/2022 8:09 AM EDT) AP Specimen 05/07/2022 8:09 AM EDT 05/07/2022 8:09 AM EDT Narrative [facility] - 05/07/2022 8:09 AM EDT Specimen requisition ordered. ??Separate Pathology report to follow Cyrus Isaac MD PATHOLOGY/CYTOLOGY ORDERABLES Performing Organization Address City/[facility]/[place] [address] documented in this encounter Visit Diagnoses Diagnosis Neck mass Swelling, mass, or lump in head and neck documented in this encounter Care Teams Firer Tunnel Kiln Relationship Specialty Start Date End Date Wilfrid Peck MD [address] [place] [id number] PCP - General 10/09/10 documented as of this encounter
--- OUTSIDE RECORDS SUMMARY | 2024-08-16 18:23 | XMS_ITS | Encounter Summary ---
Author Organization [facility] [place] [address] Care Team Providers Care Backend Python Developer Name Role Phone Bri Peck MD Primary Care Provider [phone] Reason for Visit * Consultation (Routine) - Closed Specialty Diagnoses / Procedures Referred By Genevieve schroeder Referred To Contact Vascular Surgery Diagnoses BLE venous insufficiency Procedures BLE venous insufficiency Bri Peck MD [address] [place] [id number] [facility] [address] [place] [address] Referral ID Status Reason Start Date Expiration Date V isits Requested Visits Authorized [id number] Closed Consult, Test & Treat PCP Updated and/or Approved 03/22/2019 03/21/2020 2 2 Encounter Details Date Type Department Care Team (Late st Contact Info) Description 06/03/2019 9:00 AM EDT Tech [place] [address] Tabby Barajas [place] Venous insufficiency of lower extremity, unspecified laterality [...] Procedure Name Priority Date/Time Associated Diagnosis Comments UNLATERAL VALVULAR INCOMP Routine 06/03/2019 8:54 AM EDT Venous insufficiency of lower extremity, unspecified laterality documented in this encounter Results * LE Unilateral Valvular Incomp Study (06/03/2019 8:54 AM EDT) VB Text Report Department: Vascular Surgery Lab Patient: [id number] (FELICIANO TAVARES) CPT: 34402 ICD10: I87.2;I83.813 Referring Physician: BRI GAN ?? Indications: 58 year old male with [...] Report [facility] 06/03/2019 8:54 AM EDT Bri Gan MD VASCULAR ORDERABLES [facility] documented in this encounter Visit Diagnoses Diagnosis Venous insufficiency of lower extremity, unspecified laterality documented in this encounter Care Teams Backend Python Developer Relationship Specialty Start Date End Date Bri Peck MD [address] [address] PCP - General 10/09/10 documented as of this encounter
--- OUTSIDE RECORDS SUMMARY | 2024-08-16 18:23 | XMS_ITS | Encounter Summary ---
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 Procedures NM PET CT Standard Plus Head and Neck Martell Camargo PA [facility] [place] [address] [place] [address] Referral ID Status Reason Start Date Expiration Date V isits Requested Visits Authorized [id number] Denied Specialty Service Requested 05/15/2022 11/14/2023 1 0 Encounter Details Date Type Department Care Team (Late st Contact Info) Description 05/15/2022 Orders [place] [address] Martell Camargo PA [facility] [place] [address] 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 ? Narrative 05/16/2022 5:51 PM EDT EXAMINATION: NM PET CT STANDARD PLUS HEAD AND NECK CLINICAL HISTORY: Head/neck cancer, staging TECHNIQUE: Following IV injection of 01-epnppk-4-deoxyglucose (FDG) a standard uptake of approximately 60 [...] Note Fani Steven MD - 05/16/2022 EXAMINATION: PR PET CT STANDARD PLUS HEAD AND NECK CLINICAL HISTORY: Head/neck cancer, staging TECHNIQUE: Following IV injection of 22-qnukca-0-deoxyglucose (FDG) astandard uptake of approximately 60 minutes, [...] patients who have questions please contactthe health child care attendant school that requested your imaging first. 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
--- OUTSIDE RECORDS SUMMARY | 2024-08-16 18:23 | XMS_ITS | Encounter Summary ---
Author Organization [facility] Address [facility] [place] [address] Care Team Providers Care Distributor Publications Name Role Phone Wilfrid Peck MD Primary Care Provider + [phone] Encounter Details Date Type Department Care Team (Late st Contact Info) Description 02/05/2022 Ancillary Procedure Radiology Library at [facility] [place] [address] Glen Esparza MD [facility] [address] Social History Tobacco Use Types Packs/Day Years Used Date Smoking Tobacco: Never Assessed Smokeless Tobacco: Never Sex and Gender Information Value Date Recorded Sex Assigned at Not on file Gender Identity Not on file Sexual Orientation Not on file documented as of this encounter Plan of Treatment Not on file documented as of this encounter Procedures Procedure Name Priority Date/Time Associated Diagnosis Comments FILM LIBRARY STORAGE ONLY ULTRASOUND STUDY Routine 02/05/2022 12:00 AM EDT documented in this encounter Results * Film Library- Storage Only Ultrasound Study (02/05/2022 12:00 AM EDT) Narrative PAMELLA - 03/12/2022 1:54 PM EDT This exam is auto-finalizing. It's purpose is for storage only. Glen Esparza MD IMG FILM LIBRARY OR DERABLES [place], [place] documented in this encounter Visit Diagnoses Not on filedocumented in this encounter Care Teams Distributor Publications Relationship Specialty Start Date End Date Wilfrid Peck MD [address] [place] [address] PCP - General 10/09/10 documented as of this encounter
--- OUTSIDE RECORDS SUMMARY | 2024-08-16 18:23 | XMS_ITS | Encounter Summary ---
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 Procedures PRO LARYNGOSCOPY, DIRCT, OP SCOPE, BIOPSY LARYNGOSCOPY, MICROSCOPE, WITH BIOPSY (WRVU 3.55) Marco Esparza MD [facility] [place] [address] [facility] Referral ID Status Reason Start Date Expiration Date Visits Re quested Visits Authorized [id number] 1 1 Encounter Details Date Type Department Care Team (Late st Contact Info) Description 05/27/2022 7:30 AM EDT - 05/27/2022 9:00 AM EDT [place] [address] Marco Esparza MD [facility] [place] [address] LARYNGOSCOPY, MICROSCOPE, WITH BIOPSY (WRVU 3.55) Social History Tobacco Use Types Packs/Day Years Used Date Smoking Tobacco: Never Smokeless Tobacco: Never Sex and Gender Information Value Date Recorded Sex Assigned at Not on file Gender Identity Not on file Sexual Orientation Not on file documented as of this encounter Last Filed Vital Signs Vital Sign Reading Time Taken Comments Blood Pressure 143/76 05/27/2022 9:00 AM EDT Pulse 54 05/27/2022 9:00 AM EDT Temperature 36.4 ??C (97.5 ??F) 05/27/2022 8:33 AM ED T Respiratory Rate 16 05/27/2022 9:00 AM EDT Oxygen Saturation 100% 05/27/2022 9:00 AM EDT Inhaled Oxygen Concentration - - [...] -You can reach the ENT clinic at [phone] for appointment questions. -The ENT triage nurse is available at [phone] -For urgent issues during evenings (5 PM - 7 AM) and weekends the ENT resident production editor can be reached through the main hospital shell freezing machine operator at [phone] Follow Up: You will need to follow [...] AM [facility] Aleshia Steve Radiation Oncology at [facility] Arrive at: [facility] door at end of hallway [phone] 05/29/2022 10:00 AM Forest Grey MD Radiation Oncology at [facility] Arrive at: [facility] door at end of hallway [phone] 06/06/2022 9:00 AM Marco Esparza MD [place]ology at [facility] [place]rive at: Biomedical Equipment Tech Area [phone] 06/06/2022 10:00 AM Blaire Castro APRN; Joe Leger MD Hematology and Oncology at [facility] Arrive at: Biomedical Equipment Tech Area [phone] documented in this encounter Medications at Time [...] PGY3 05/27/22 7:06 AM ENT Team Pager: [phone] documented in this encounter Miscellaneous Notes * Brief Op Note - Marco Esparza MD - 05/27/2022 8:53 AM EDT Brief Operative Note Patient Name: Feliciano Hill : [id number] MR#: [id number] Case Date: 05/27/2022 Surgeon: Surgeon(s) and Role: [...] Order [place] [address] 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 ??Separate Pathology report to follow Marco Esparza MD PATHOLOGY/CYTOLOGY ORDERABLES Performing Organization Address City/[facility]/[place] [address] * Specimen to Pathology (05/27/2022 8:09 AM EDT) AP Specimen 05/27/2022 8:09 AM EDT 05/27/2022 8:09 AM EDT Narrative [facility] - 05/27/2022 8:09 AM EDT Specimen requisition ordered. ??Separate Pathology report to follow Marco Esparza MD PATHOLOGY/CYTOLOGY ORDERABLES Performing Organization Address City/[facility]/ZIP Co de Phone Number [facility] [place] [address] * Specimen to Pathology (05/27/2022 8:02 AM EDT) AP Specimen 05/27/2022 8:02 AM EDT 05/27/2022 8:02 AM EDT Narrative [facility] - 05/27/2022 8:02 AM EDT Specimen requisition ordered. ??Separate Pathology report to follow Marco Esparza MD PATHOLOGY/CYTOLOGY ORDERABLES [facility] [place] [address] * Surgical Pathology Report (05/27/2022 8:01 AM EDT) Final Diagnosis [id number] ? [facility]; The signing pathologist has (i) examined the [...] Duran Verified: ??05/29/2022 17:37 ??Pathologist Performed at: ??-[facility] Dept. of Pathology, [place], [place] ADDITIONAL STUDIES Whole slide scan: sales representative groceries slide(s) Immunohistochemistry Studies: Formalin-fixed, paraffin-embedded tissue sections [...] labeled C1. ??pps 05/29/2022 5:37 PM EDT [facility] BILATERAL PALATINE TONSILS / Unknown 05/27/2022 8:01 AM EDT 05/27/2022 8:01 AM EDT BILATERAL PALATINE TONSILS / Unknown 05/27/2022 8:01 AM EDT 05/27/2022 8:01 AM EDT BILATERAL PALATINE TONSILS / Unknown 05/27/2022 8:01 AM EDT 05/27/2022 8:01 AM EDT Marco Esparza MD PATHOLOGY/CYTOLOGY ORDERABLES [facility] [place] [address] documented in this encounter Visit Diagnoses Not on filedocumented in this encounter Administered Medications Inactive Administered Medications - up to 3 most recent administrations Medication Order MAR Action Action Date Dose Rate Site EPINEPHrine (Adrenalin) nasal solution ONCE PRN, Starting on Fri05/27/22 at 0753, Until Fri05/27/22 at 1136, Intra-Operative (Intra-Procedure), Routine Given 05/27/2022 7:53 AM EDT 15 mLs 19- Surgical Site oxyCODONE (Roxicodone) tablet 5-10 mg 5-10 mg, Oral, EVERY 3 HOURS PRN, Starting on Fri05/27/22 at 0826, Until Fri05/27/22 at 1136, Pain, Give 5 mg for pain 1-5; Give 10 mg for pain 6-10, Routine silver nitrate applicator topical stick ONCE PRN, Starting on Fri05/27/22 at 0810, Until Fri05/27/22 at 1136, Intra-Operative (Intra-Procedure), Routine Given 05/27/2022 8:10 AM EDT 1 applicator 19- Surgical Site documented in this encounter Active and Recently [...] Ness Perdue CRNA) PRN Medication Order 05/25/2022 05/26/2022 05/27/2022 EPINEPHrine (Adrenalin) nasal solution (CANCELED) ONCE PRN, [...] larynx) documented in this encounter Care Teams Astrobiologist Relationship Specialty Start Date End Date Wilfrid Peck MD [address] [place] [address] PCP - General 10/09/10 documented as of this encounter
--- OUTSIDE RECORDS SUMMARY | 2024-08-16 18:23 | XMS_ITS | Encounter Summary ---
Author Organization [facility] [place] [address] Care Team Providers Care Bowling Ball Molder Name Role Phone Wilfrid Peck MD Primary Care Provider + [phone] Encounter Details Date Type Department Care Team (Late st Contact Info) Description 06/10/2022 Telephone Otolaryngology at [facility] [place] [address] Tiffanie Soares Social History Tobacco Use Types [...] * Telephone Encounter - Tiffanie Soares - 06/10/2022 2:36 PM EDT LVM on [phone] of scheduled appointment and requested call back to confirm or re-steph. Future Appointments Date Time Provider Department Center 06/13/2022 1:00 PM Cyrus Isaac MD [facility] also sent myd documented in this encounter Plan of Treatment Not on file documented as of this encounter Visit Diagnoses Not on filedocumented in this encounter Care Teams Bowling Ball Molder Relationship Specialty Start Date End Date Wilfrid Peck MD [address] [place] [address] PCP - General 10/09/10 documented as of this encounter
--- OUTSIDE RECORDS SUMMARY | 2024-08-16 18:23 | XMS_ITS | Encounter Summary ---
Author Organization [facility] Address [facility] [place] [address] Care Team Providers Care Synthetic Staple Extruder Name Role Phone Wilfrid Peck MD Primary Care Provider + [phone] Encounter Details Date Type Department Care Team (Late st Contact Info) Description 05/27/2022 Interpretation Only Radiology [address] [facility] [place] [address] Unknown None Social History Tobacco Use Types [...] Associated Diagnosis Comments DH OR ENDOSCOPY Routine 05/27/2022 documented in this encounter Results * DH OR Endoscopy (05/27/2022) Anatomical Region Laterality Modality Other 05/27/2022 Narrative 05/27/2022 12:00 AM EDT Photographs - Images Procedure Note Unknown - 05/27/2022 Photographs - Images Unknown EA IMAGES documented in this encounter Visit Diagnoses Not on filedocumented in this encounter Care Teams Synthetic Staple Extruder Relationship Specialty Start Date End Date Wilfrid Peck MD [address] [place] [address] PCP - General 10/09/10 documented as of this encounter
--- OUTSIDE RECORDS SUMMARY | 2024-08-16 18:23 | XMS_ITS | Encounter Summary ---
Author Organization [facility] Address [facility] [place] [address] Care Team Providers Care Peanut Sorter Name Role Phone Wilfrid Peck MD Primary Care Provider + [phone] Encounter Details Date Type Department Care Team (Late st Contact Info) Description 02/28/2022 Ancillary Procedure Radiology Library at [facility] [place] [address] Glen Esparza MD [facility] [place] [address] Social History Tobacco Use Types Packs/Day Years [...] Priority Date/Time Associated Diagnosis Comments FILM LIBRARY - STORAGE ONLY CT NECK Routine 02/28/2022 12:00 AM EDT documented in this encounter Results * Film Library- Storage Only CT Neck (02/28/2022 12:00 AM EDT) Narrative PAMELLA - 03/12/2022 1:56 PM EDT This exam is auto-finalizing. It's purpose is for storage only. Glen Esparza MD IMG FILM LIBRARY OR DERABLES [place], [place] documented in this encounter Visit Diagnoses Not on filedocumented in this encounter Care Teams Peanut Sorter Relationship Specialty Start Date End Date Wilfrid Peck MD [address] [place] [address] PCP - General 10/09/10 documented as of this encounter
--- OUTSIDE RECORDS SUMMARY | 2024-08-16 18:23 | XMS_ITS | Encounter Summary ---
Author Organization [facility] [place] [address] Care Team Providers Care Refractory Grinder Operator Name Role Phone Wilfrid Peck MD Primary Care Provider + [phone] Encounter Details Date Type Department Care Team (Late st Contact Info) Description 05/07/2022 Orders [place] [address] Bing Kahn APRN [facility] [place] [address] Neck mass Social History Tobacco Use Types [...] neck documented in this encounter Care Teams Refractory Grinder Operator Relationship Specialty Start Date End Date Wilfrid Peck MD [address] [place] [address] PCP - General 10/09/10 documented as of this encounter
--- OUTSIDE RECORDS SUMMARY | 2024-08-16 18:23 | XMS_ITS | Encounter Summary ---
Author Organization [facility] [place] [address] Care Team Providers Care Eap Consultant Name Role Phone Wilfrid Peck MD Primary Care Provider [phone] Encounter Details Date Type Department Care Team (Late st Contact Info) Description 05/21/2022 Telephone Radiation Oncology at [address] [address] Milagros Brar Social History Tobacco Use Types Packs/Day Years Used Date Smoking Tobacco: Never Smokeless Tobacco: Never Sex and Gender Information Value Date Recorded Sex Assigned at Not on file Gender Identity Not on file Sexual Orientation Not on file documented as of this encounter Miscellaneous Notes * Telephone Encounter - Milagros Morgan - 05/21/2022 4:00 PM EDT Radiation Oncology New Patient Scheduling Note I called Feliciano to inform him that Dr. Esparza has referred him to see Dr. Grey for a radiation new patient consultation. I have confirmed his appointments on 05/29 will include a 30 minute visit at 930 to see our clinic nurse, followed by a [address] Hunter. I have requested that he arrive 15 minutes early in order to complete paperwork. I confirmed our address and answered all of his questions,and our contact information should any further questions or concerns arise. documented in this encounter Plan of Treatment Not on file documented as of this encounter Visit Diagnoses Not on filedocumented in this encounter Care Teams Eap Consultant Relationship Specialty Start Date End Date Wilfrid Peck MD [address] [place] [address] PCP - General 10/09/10 documented as of this encounter
--- OUTSIDE RECORDS SUMMARY | 2024-08-16 18:23 | XMS_ITS | Encounter Summary ---
Author Organization [facility] Address [facility] [place] [address] Care Team Providers Care Welding Machine Operator Plasma Arc Name Role Phone Wilfrid Peck MD Primary Care Provider + [phone] Encounter Details Date Type Department Care Team (Late st Contact Info) Description 05/15/2022 Telephone [place] [address] Martell Camargo PA [facility] [place] [address] Social History Tobacco Use Types Packs/Day Years Used Date Smoking Tobacco: Never Smokeless Tobacco: Never Sex and Gender Information Value Date Recorded Sex Assigned at Not on file Gender Identity Not on file Sexual Orientation Not on file documented as of this encounter Miscellaneous Notes * Telephone Encounter - Martell Camargo PA - 05/15/2022 4:18 PM EDT Discussed with the patient that his FNA results indicated a squamous cell carcinoma, and that, as such, it was recommended that he continue to have the PET imaing performed tomomrrow in order to assess for probably primary sites. Discussed his following up with Dr. Esparza afterwards to go over the pathology and imaing results in more detail, and to discuss further management. The patient expressed understanding of these points and agreement with the plan, and all questions that were asked were answered to the patient's satisfaction. documented in this encounter Plan of Treatment Not on file documented as of this encounter Visit Diagnoses Not on filedocumented in this encounter Care Teams Welding Machine Operator Plasma Arc Relationship Specialty Start Date End Date Wilfrid Peck MD [address] [place] [address] PCP - General 10/09/10 documented as of this encounter
--- OUTSIDE RECORDS SUMMARY | 2024-08-16 18:23 | XMS_ITS | Encounter Summary ---
Author Organization [facility] Address [facility] [place] [address] Care Team Providers Care Radio Aerial Installer Name Role Phone Wilfrid Peck MD Primary Care Provider [phone] Reason for Visit * Consultation (Routine) - Closed Specialty Diagnoses / Procedures Referred By Genevieve schroeder Referred To Contact Otolaryngology Diagnoses Neck mass Basil Fuentes MD [address] [place] [address] DR STE[address] [place] [address] Glen Esparza MD [facility] [place] [address] Referral ID Status Reason Start Date Expiration Date V isits Requested Visits Authorized [id number] Closed Consult, Test & Treat PCP Updated and/or Approved 03/04/2022 03/04/2023 6 6 Encounter Details Date Type Department Care Team (Latest Contact Info) Description 03/28/2022 8:40 AM EDT Office [place] [address] Glen Esparza MD [facility] [place] [place] [address] Lymphadenopathy of head and neck (Primary Dx) Social History Tobacco Use Types [...] - - Weight 97.5 kg (215 lb) 03/28/2022 8:24 AM EDT Height 190.5 cm (6' 3) 03/28/2022 8:24 AM EDT Body Mass Index 26.87 03/28/2022 8:24 AM EDT documented in this encounter Progress Notes * Manuel Carey - 03/28/2022 8:40 AM EDTSummary: Right neck mass evaluation I have conducted portions of Feliciano Hill's evaluation in conjunction with Doctor Esparza. Below is the information that I gathered by interview, chart review, and discussion with Doctor Esparza. CC: Feliciano Hill, 61M, presents with a right neck mass. He is accompanied by his . HPI: Feliciano got COVID-19 in early November 2021 which then resolved mid-November 2021 without issue; however, he then noticed this mass on the right side of his neck. He does not believe it has changed substantially since then. He was evaluated by several doctors since then, including his PCP and Doctor Gina in [place], [place], who referred him to our service. The working hypothesis provided by Doctor Kamlesh rosales is that of a ruptured/leaking submandibular gland and/or mucocele based on ultrasound and CT studies. Feliciano has not noticed any change in size or character of the mass since November, nor has it caused substantial pain, or difficulty swallowing. It is not painful to touch. He notes occasional pain with swallowing apple cider vinegar (once every few days). Feliciano generally lives an active lifestyle. 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 He does not feel fatigued. He lives about two hours drive away in [place], [place]. No issues with transportation. He drinks a 22 oz beer 3-4 times per week. His smoking history is essentially zero. He occasionallyuses cannabis. Never used injectable drugs. Imaging: His CT scan was secondarily read in-house by Doctor Perez. The impression is that of a level 2A complex cystic structure with potential primary right tonsilar involvement. Physical exam: General: sitting up in chair, in good spirits, talkative and appearing energetic. Neck: The mass is clearly apparent by visual inspection below the right mandibular base. The mass is slightly firm to touch and somewhat fixed to nearby structures. Assessment and Plan: There is not enough information for a clear diagnosis or to proceed with surgical interventions such as excision or biopsy. PET imaging will likely cinch the diagnosis and provide a clear path forward. 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 We discussed that other diagnoses e.g. cystic structures arepossible but unlikely given current information. Recommend PET imaging. Thank you for involving us in the care of Feliciano Hill. * Glen Esparza MD - 03/28/2022 8:40 AM EDT Images from the original note were not included. Subjective Patient ID: Feliciano Hill is a 61 y.o. male. HPI Feliciano Hill is seen in consultation from Basil Fuentes and Wilfrid Peck MD in regards to evaluation and management of cystic mass of the right upper neck x3 months The following records were reviewed: Office records, CT scan of the neck The history is obtained through patient interview, review of relevant records, and/or discussion with referring provider. Reasonably healthy 61-year-old male, former smoker who developed COVID in November 2021 apparently with some cervical lymphadenopathy. Following his recovery from his symptoms from this illness, he was noticed to have a persistent right upper neck mass which did not resolve. This was brought to the attention of his PCP and patient was then referred to a general surgeon at [facility]. He underwent a CT scan of [...] drugs. He does smoke marijuana on occasion. No past medical history on file. No past surgical history on file. Current Outpatient Medications: ??? lisinopril-hydrochlorothiazide (PRINZIDE;ZESTORETIC) 10-12.5 mg Tablet, take 1 tablet by mouth once daily, Disp: , Rfl: 0 ??? atorvastatin (LIPITOR) 20 mg Tablet, take 1 tablet by mouth once daily, Disp: , Rfl: 0 No Known Allergies There is no problem list on file for this patient. No family history on file. 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 Judgment: Judgment normal. CT scan of the neck is also reviewed. Essential findings are of possible asymmetry of the right tonsil region which is difficult to assess in view of the dental artifacts. He has a multiseptated cystic/necrotic 3.5 cm mass of level 2 of the right neck which is displacing the internal jugular vein as well as placed just posterior to the submandibular gland, not encasing the carotid artery. The mass is adjacent to the sternomastoid muscle. It is difficult to tell whether there is infiltration of that muscle. There is no mass noted in the left neck there is an adjacent small node. Assessment and Plan In view of the patient's symptoms and for complete evaluation, a flexible laryngoscopy is indicated. +++++++++++++++++++++++++++++++++++++++++++++++++++++++++++++++++++ Procedure: Flexible Laryngoscopy Indications: Evaluation for mucosal lesion of the upper airway Procedure and findings: The nasal mucosae are topicalized with oxymetazoline/lidocaine anesthesia. The flexible endoscope is passed through the nasal cavities and evaluation of the nasopharynx, oropharynx and larynx is performed. All of the visualized mucosae are normal except for the following: Normal nasal cavity and nasopharynx. Palate normal. Minimal asymmetric appearance of the right versus the left palatine tonsil but no obvious lesion noted. On looking at the lateral aspect of the right base of tongue there is a small papilliform lesion which is white in color. It measures about 3 to 4 mm in size. Piriform sinuses and valleculae are clear. Supraglottic, glottic, and subglottic structures intact. Trachea clear Vocal cord mobility normal ASSESSMENT/PLAN: Based on today's findings the appearance of this right neck mass is highly suspectfor necrotic lymphadenopathjy as a result of an HPV related squamous cell carcinoma. I discussed mysincere doubts that this represents a branchial cleft cyst. Usually branchial cleft cysts are Uni septate rather than being multiseptated. Recommendation wouldbe for the patient to undergo a PET/CT in order to try to identify more clearly a potential primarysite. It is certainly possible that it lies either in the palatine or the lingual tonsil tissue. Facilitating this is much as possible to plan targeted biopsies would also help in his management. ThePET/CT would also stage him to make sure that there is no other disease. We will set up a follow-upvisit after the PET/CT on the same day. The plan afterwards would be to take him to the OR for microlaryngoscopy and mapping biopsies. Would then review with him the options of treatment. He is in agreement to proceed. He will be seenafter the PET/CT is completed documented in this encounter Plan of Treatment Not on file documented as of this encounter Visit Diagnoses Diagnosis Lymphadenopathy of head and neck- Primary documented in this encounter Care Teams Radio Aerial Installer Relationship Specialty Start Date End Date Wilfrid Peck MD [address] [place] [address] PCP - General 10/09/10 documented as of this encounter
--- OUTSIDE RECORDS SUMMARY | 2024-08-16 18:23 | XMS_ITS | Encounter Summary ---
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 Procedures NM PET CT Standard Plus Head and Neck Martell Camargo PA [facility] [place] [address] [place] [address] Referral ID Status Reason Start Date Expiration Date V isits Requested Visits Authorized [id number] Denied Specialty Service Requested 05/15/2022 11/14/2023 1 0 Encounter Details Date Type Department Care Team (Latest Contact Info) Description 05/16/2022 9:28 AM EDT - 05/16/2022 11:59 PM EDT Hospital Encounter [place] [address] Glen Esparza MD [facility] [place] [address] Discharge Disposition: Home Social History Tobacco Use [...] unknown primary site documented in this encounter Results * NM [...] who have questions please contact the health medicare nurse that requested your imaging first. ? Narrative 05/16/2022 5:51 PM EDT EXAMINATION: NM PET CT STANDARD PLUS HEAD AND NECK CLINICAL HISTORY: Head/neck cancer, staging TECHNIQUE: Following IV injection of 40-dsedky-4-deoxyglucose (FDG) a standard uptake of approximately 60 [...] cancer, staging TECHNIQUE: Following IV injection of 82-knwxzn-1-deoxyglucose (FDG) astandard uptake of approximately 60 minutes, [...] patients who have questions please contactthe health medicare nurse that requested your imaging first. Cyrus Isaac MD IMG PET ORDERABLES documented in this encounter Visit Diagnoses Not on filedocumented in this encounter Care Teams Canvas Cutter Hand Relationship Specialty Start Date End Date Wilfrid Peck MD [address] [place] [id number] PCP - General 10/09/10 documented as of this encounter
--- OUTSIDE RECORDS SUMMARY | 2024-08-16 18:23 | XMS_ITS | Encounter Summary ---
Author Organization [facility] Address [facility] [place] [address] Care Team Providers Care Store Product Demonstrator Name Role Phone Wilfrid Peck MD Primary Care Provider [phone] Reason for Referral * Consultation (Routine) - Closed Specialty Diagnoses / Procedures Referred By Contfior t Referred To Contact Otolaryngology Diagnoses Neck mass Basil Fuentes MD [address] [place] [address] [address] STEEN [address] [place] [address] Glen Esparza MD [facility] [place] [address] Referral ID Status Reason Start Date Expiration Date V isits Requested Visits Authorized [id number] Closed Consult, Test & Treat PCP Updated and/or Approved 03/04/2022 03/04/2023 6 6 Encounter Details Date Type Department Care Team (Late st Contact Info) Description 03/04/2022 Transcribe Orders eDH Incoming Referrals [phone] Basil Fuentes MD [address] [place] [address] DR STE[address] [place] [phone] Neck mass Social History Tobacco Use Types Packs/Day Years Used Date Smoking Tobacco: Never Assessed Smokeless Tobacco: Never Sex and Gender Information Value Date Recorded Sex Assigned at Not on file Gender Identity Not on file Sexual Orientation Not on file documented as of this encounter Plan of Treatment Scheduled Referrals Name Type Priority Associated Diagnoses Orde r Schedule Referral to ENT Outpatient Referral Routine Neck mass Ordered: 03/04/2022 documented as of this encounter Visit Diagnoses Diagnosis Neck mass Swelling, mass, or lump in head and neck documented in this encounter Care Teams Store Product Demonstrator Relationship Specialty Start Date End Date Wilfrid Peck MD [address] [address] PCP - General 10/09/10 documented as of this encounter
--- OUTSIDE RECORDS SUMMARY | 2024-08-16 18:23 | XMS_ITS | Encounter Summary ---
Author Organization [facility] Address [facility] [place] [address] Care Team Providers Care Jewel Waxer Name Role Phone Wilfrid Peck MD Primary Care Provider [phone] Encounter Details Date Type Department Care Team (Latest Contact Info) Description 05/30/2022 Multidisciplinary Ca re Committee [place] [address] Forest Grey MD [facility] [place] [address] Social History Tobacco Use Types Packs/Day Years [...] place to sleep or slept in a half-way (including now)? No 05/29/2022 Sex and Gender Information Value Date Recorded Sex Assigned at Not on file Gender Identity Not on file Sexual Orientation Not on file documented as of this encounter Progress Notes * Forest Grey MD - 05/30/2022 11:59 PM EDT Head & Neck - Tumor Board Note Date Presented: 06/04/2022 Presenting Physician: Dr. 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 ??After resolution of COVID, the right upper neck mass persisted and did not resolve. ??He saw his PCP and the patient was then referred to a general surgeon at [facility]. ??He underwent a CT scan of the neck which revealed a cystic mass in right level II, and saw Dr. Esparza on 05/16/22. Imaging: CT / PET imaging reviewed Pathology/Histology: Stage: as above Clinical Data (Exams, Labs, etc.): Molecular Pathology Results: Clinical Trial Availability: NRG HN005 eligible Options Discussed: He may be a candidate for TORS, as well as NRG HN005 / PLATE GRINDER. We will refer to Dr Isaac to discuss. Recommendations: As above. DISCLAIMER: The patient was discussed and the tumor board made recommendations but it is ultimatelyup to the treatment provider(s) and the patient to determine the patient???s care. documented in this encounter Plan of Treatment Not on file documented as of this encounter Visit Diagnoses Not on filedocumented in this encounter Care Teams Jewel Waxer Relationship Specialty Start Date End Date Wilfrid Peck MD [address] [address] PCP - General 10/09/10 documented as of this encounter
--- OUTSIDE RECORDS SUMMARY | 2024-08-16 18:23 | XMS_ITS | Encounter Summary ---
Author Organization [facility] Address [facility] [place] [address] Care Team Providers Care Can Striper Name Role Phone Wilfrid Peck MD Primary Care Provider [phone] Reason for Visit * Consultation (Routine) - Closed Specialty Diagnoses / Procedures Referred By Genevieve schroeder Referred To Contact Vascular Surgery Diagnoses BLE venous insufficiency Procedures BLE venous insufficiency Wilfrid Peck MD [address] [place] [address] [facility] [address] [place] [address] Referral ID Status Reason Start Date Expiration Date V isits Requested Visits Authorized [id number] Closed Consult, Test & Treat PCP Updated and/or Approved 03/22/2019 03/21/2020 2 2 Encounter Details Date Type Department Care Team (Late st Contact Info) Description 06/03/2019 10:00 AM EDT Office Visit [place] [address] Love Gongora APRN [facility] [place] [address] Varicose veins of both legs with edema Social History Tobacco Use Types Packs/Day Years Used Date Smoking Tobacco: Never Assessed Smokeless Tobacco: Never Sex and Gender Information Value Date Recorded Sex Assigned at Not on file Gender Identity Not on file Sexual Orientation Not on file documented as of this encounter Last Filed Vital Signs Vital Sign Reading Time Taken Comments Blood Pressure 139/61 06/03/2019 9:45 AM EDT Pulse 54 06/03/2019 9:45 AM EDT Temperature - - Respiratory Rate - - Oxygen Saturation - - Inhaled Oxygen Concentration - - Weight 97.5 kg (215 lb) 06/03/2019 9:45 AM EDT r eported Height 190.5 cm (6' 3) 06/03/2019 9:45 AM EDT r eported Body Mass Index 26.87 06/03/2019 9:45 AM EDT documented in this encounter Progress Notes * Love Gongora, CAR STEREO INSTALLER - 06/03/2019 10:00 AM EDT Vascular Clinic Consult Note HPI: 58 year old male with history of prediabetes, HLD, HTN who comes to clinic today for evaluation of left venous insufficiency/varicose veins. He notes them bilaterally but left is worse than right. At end of busy day with a lot of standing he notes swelling and mild ache. He has been wearing compression stockings, not daily, that he bought online, unsure of how much compression they are. He does not feel that they have made a difference. He states his mother also has varicose veins. He has not had history of ulcers, stasis dermatitis or DVT. Prior vascular history: None No Known Allergies Current Outpatient Medications on File Prior to Visit Medication Sig Dispense Refill ??? lisinopril-hydrochlorothiazide (PRINZIDE;ZESTORETIC) 10-12.5 mg Tablet take 1 tablet by mouth once daily 0 ??? atorvastatin (LIPITOR) 20 mg Tablet take 1 tablet by mouth once daily 0 No current facility-administered medications on file prior to visit. ROS: Negative except where noted in HPI. Physical Exam: General: NAD, appears well Neuro: Alert and oriented, motor sensory grossly intact Extremity - [place], warm, no ulceration, brisk capillary refill, no edema. Bilateral ropey varicose vein medial thigh extending down calf. No ulcerations, bakers cyst behind left knee Studies: Findings: ?? Common Femoral Vein, Left ?Reflux?: Competent Femoral Vein, Left ?Reflux?: Competent Popliteal, Left ?Reflux?: Competent GSV, Near SFJ, Left ?Reflux?: Reflux ?Diameter (mm): 7.9 ?Depth (mm): 6.2 GSV, Proximal Thigh, Left ?Reflux?: Reflux ?Diameter (mm): 6.7 ?Depth (mm): 5.9 GSV, Mid Thigh, Left ?Reflux?: Reflux ?Diameter (mm): 6.4 ?Depth (mm): 7.2 GSV, Distal Thigh, Left ?Reflux?: Reflux ?Diameter (mm): 6.7 ?Depth (mm): 5.4 GSV, ??Knee, Left ?Reflux?: Reflux ?Diameter (mm): 5.1 ?Depth (mm): 6.7 GSV Prox Calf, Left ?Reflux?: Reflux ?Diameter (mm): 5.1 ?Depth (mm): 2.3 GSV, Mid Calf, Left ?Reflux?: Reflux ?Diameter (mm): 5.6 ?Depth (mm): 2.4 GSV, Distal Calf, Left ?Reflux?: Reflux ?Diameter (mm): 3.8 ?Depth (mm): 3.2 SSV, Left ?Reflux?: Competent ?Thrombus?: NON-OCCLUSIVE THROMBUS ? Interpretation: ?? LEFT: Non-occlusive superficial vein thrombus of indeterminate age in the small saphenous vein in the upper calf. No reflux identified in the SSV on today's exam. ?? Superficial vein reflux >3.5 seconds in the great saphenous vein from the level of the saphenofemoral junction to the distal calf. The GSV in the mid/distal thigh is very tortuous. There are incompetent varicose veins associated with the GSV through the calf. ?? No significant reflux noted in the common femoral vein, femoral vein in the thigh, or the popliteal vein. ?? No evidence of common femoral, femoral, or popliteal DVT. No evidence of superficial (GSV) vein thrombus on today's exam. ?? Assessment/Plan: 58 year old male who presents to clinic today with varicose vein and swelling bilaterally, L > R. He has not consistently worn compression that he bought online. Discussed role ofcompression and elevation in venous insuff varicose vein. Discussed pathophysiology of venous insuffieciency and varicose veins with him. Reviewed results of his duplex, reflux noted in left GSV fromlevel of SFJ to distal calf. No reflux noted in deep system. Non occlusive superficial vein thrombus of indeterminate age in small saphenous vein in upper calf.There is no reflux noted in SSV. He has no associated symptom of pain, warmth or swelling. Discussed thrombus, we can not tell him how long it has been there. Discussed treatment is typically NSAID and application of heat if there is pain/warmth and use of compression. Prescription given for 20-30mmHg knee high compression and reviewed instructions for use. Recommenduse for 4-6 weeks and return visit to discuss surgical options with surgeon if no improvement. To call sooner if there are questions or issues arise. Love Gongora, MSN, CAR STEREO INSTALLER Vascular Surgery documented in this encounter Plan of Treatment Not on file documented as of this encounter Visit Diagnoses Diagnosis Varicose veins of both legs with edema documented in this encounter Care Teams Can Striper Relationship Specialty Start Date End Date Wilfrid Peck MD [address] [place] [address] PCP - General 10/09/10 documented as of this encounter
--- OUTSIDE RECORDS SUMMARY | 2024-08-16 18:23 | XMS_ITS | Encounter Summary ---
Author Organization [facility] Address [facility] [place] [address] Care Team Providers Care Application Packager Name Role Phone Wilfrid Peck MD Primary Care Provider [phone] Encounter Details Date Type Department Care Team (Late st Contact Info) Description 06/06/2022 11:40 AM EDT Office [place] [address] Glen Esparza MD [facility] [place] [address] Neck mass; Cancer of base of tongue Social History [...] - - Weight 96.2 kg (212 lb) 06/06/2022 11:37 AM EDT Height 188 cm (6' 2) 06/06/2022 11:37 AM EDT Body Mass Index 27.22 06/06/2022 11:37 AM EDT documented in this encounter Progress Notes * Glen Esparza MD - 06/06/2022 11:40 AM EDT ENT STAFF NOTE: 61 y.o. male with a PMH of tobacco use who had a several month history of level 2 and 3 lymphadenopathy of the right neck as well as concern for a lesion along the right base of tongue who was taken to the OR for a direct laryngoscopy and biopsies 7. he was noted to have a lesion in the lateral R BOT. He was presented at [facility] with options of chemoradiation therapy vs TORS. Was evaluated by Dr Leger earlier. Was also due to see Dr Isaac however he is unavailable. Denies new complaints, no change in neck mass Discussed with patient TORS in broad terms highlighting objectives, however details to be followingconsultation with Dr Isaac. 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
== END 2024-08-16 18:19 | disposition home or self-care (01) ==
LOC: NCHCN 18:18
PROVIDERS: PCP Internal Medicine; Visit Provider Internal Medicine
DX: M70.41 Prepatellar bursitis, right knee (principal)
CPT/HCPCS: 87070; 87205

== ENCOUNTER 2024-12-23 12:42 | Outpatient (REF) | payer OTHER, SELFPAY ==
[2024-12-23 19:04] LABS: ESR 10 mm/hr (0-20)
[2024-12-23 19:05] LABS: Abs Immature Grans 0.02 10^3/uL (0.0-0.06); Absolute Basophil Count 0.04 10^3/uL (0.0-0.2); Absolute Eosinophil Count 0.17 10^3/uL (0.0-0.7); Absolute Lymphocyte Count 1.54 10^3/uL (1.2-3.4); Absolute Monocyte Count 0.78 10^3/uL (0.1-0.8); Absolute Neutrophil Count 6.86 10^3/uL (1.2-6.7); Basophils % 0.4 %; Eosinophils % 1.8 %; HCT 45.2 % (40.0-50.0); HGB 15.6 g/dL (13.5-17.5); Immature Grans % 0.2 %; Lymphocytes % 16.4 %; MCH 31.9 pg (27.0-33.0); MCHC 34.5 % (32.0-36.0); MCV 92 fL (80-95); MPV 9.8 fL (8.0-11.0); Monocytes % 8.3 %; Neutrophils % 72.9 %; Platelet Count 253 10^3/uL (130-400); RBC 4.89 10^6/uL (4.36-5.78); RDW 11.8 % (11.8-14.1); RDW-SD 40.4 fL; WBC 9.41 10^3/uL (4.4-10.8)
[2024-12-23 19:24] LABS: ALT 27 U/L (16-63); AST 19 U/L (15-37); Albumin 4.1 g/dL (3.4-5.0); Alkaline Phosphatase 79 U/L (46-116); Anion Gap 3.5 mmol/L (3-11); BUN 13 mg/dL (7-18); Bilirubin, Total 0.84 mg/dL (0.2-1.0); C-Reactive Protein 0.75 mg/dL (<or=0.5); CO2 33.5 mmol/L (21.0-32.0); Calcium 10.1 mg/dL (8.5-10.1); Chloride 105 mmol/L (98-107); Estimated GFR 83.52 (mL/min/1.73m2); Glucose 107 mg/dL (74-106); Potassium 4.7 mmol/L (3.5-5.1); Sodium 142 mmol/L (136-145); TSH 1.58 uIU/mL (0.36-3.74); Total Protein 7.8 g/dL (6.4-8.2)
[2024-12-24 18:44] LABS: Hepatitis B Surface Ag Negative (Negative)
[2024-12-24 19:16] LABS: Hepatitis C Ab w Rflx HCV PCR Negative (Negative)
== END 2024-12-23 12:43 | disposition home or self-care (01) ==
LOC: NCHCN 12:42
PROVIDERS: PCP Internal Medicine; Visit Provider Internal Medicine
DX: L30.9 Dermatitis, unspecified (principal)
CPT/HCPCS: 80053; 85652; 86803; 87340; 84443; 85025; 86140